=== PATIENT | female | born 1955 | race Caucasian/White ===

== ENCOUNTER 2024-05-27 08:56 | Outpatient (AMB) | payer MEDICARE, SELFPAY ==
[2024-05-27 08:58] VITALS: BP 146/80; PULSE 84; O2SAT 97; BMI 35.6
--- NOTE | 2024-05-27 08:58 | HO.NEPHOV_ITS ---
Vital Signs 05/27/24 08:58 Height 5 ft 7 in Weight 227 lb 6 oz BMI 35.6 BP 146/80 H Blood Pressure Location Lt brachial Position Sitting Pulse 84 Pulse Source Pulse Oximeter Pulse Oximetry (%) 97 Oxygen Delivery Method Room Air Intake Visit Reasons: CKD/ CON Refrigeration Service Inspector Required: No Allergies buprenorphine [From Butrans] Allergy (Verified 05/27/24 09:01) Unknown codeine Allergy (Verified 05/27/24 09:01) Nausea and Vomiting dicyclomine Allergy (Verified 05/27/24 09:01) Unknown loperamide Allergy (Verified 05/27/24 09:01) Unknown promethazine Allergy (Verified 05/27/24 09:01) Unknown Medication List - Last Reconciled 05/27/24 by Carlos Eduardo Anderson MD amlodipine 2.5 mg PO DAILY dextroamphetamine sulfate ER 30 mg PO DAILY gabapentin 600 mg PO BID insulin aspart U-100 (Novolog U-100 Insulin aspart) 10 units subcut DAILY insulin degludec (Tresiba FlexTouch U-100 insulin) 60 units subcut DAILY losartan 25 mg PO DAILY rosuvastatin 20 mg PO DAILY semaglutide (Ozempic) 2 mg subcut QWEEK tramadol 100 mg PO DAILY HPI Comments Details: Hemalatha is a pleasant 69-year-old woman with a history of longstanding hypertension diabetes mellitus referred for chronic kidney disease. 03/19/2024 serum creatinine was 1.39 with a EGFR of 41 mL/minute and hence this referral. She is a history of cerebral aneurysm underwent surgery in the past. She used to have severe migraine since childhood. After the surgery in 2002, she has had no further migraines. Prior to 2022 she was on high dose of Excederin and she was taking it regularly on a daily basis. She does not take any NSAIDs at present History of right adrenal adenoma she has been evaluated by endocrinology. She underwent 24 urine collection results are pending. [facility] Medical History (Updated 05/27/24 @ 09:29 by Carlos Eduardo Anderson MD) Pulmonary nodule Venous insufficiency of both lower extremities Chronic kidney disease, stage 3a Heart failure with preserved ejection fraction, NYHA class I Acute respiratory failure with hypoxia Pneumonia Sepsis Adenoma of right adrenal gland Coronary artery calcification COPD (chronic obstructive pulmonary disease) Spinal stenosis of lumbar region with neurogenic claudication Type 2 diabetes mellitus with hyperglycemia, with long-term current use of insulin Trochanteric bursitis of both hips DDD (degenerative disc disease), lumbosacral Osteochondromatosis, synovial Obstructive sleep apnea on CPAP Abdominal aortic atherosclerosis Nephrolithiasis Lumbosacral radiculopathy Essential (primary) hypertension Sleep apnea with hypersomnolence Hypersomnolence Surgical History (Updated 05/27/24 @ 09:06 by Machelle Raymond MA) History of back surgery H/O shoulder replacement H/O hand surgery History of hysterectomy H/O brain surgery H/O breast surgery Hx of appendectomy H/O cerebral aneurysm repair Family History (Updated 05/27/24 @ 09:07 by Machelle Raymond MA) Paternal Grandmother Diabetes Mother Cancer Sister Breast cancer Leukemia Social History (Updated 05/27/24 @ 09:07 by Machelle Raymond MA) Alcohol intake: never Patient Tobacco Use Status: Never used Tobacco Review of Systems Const Denies fever(s) and Denies weight loss Card Denies chest pain Resp Denies cough and Denies hemoptysis GI Denies abdominal pain, Denies diarrhea and Denies nausea Musc Denies back pain Neuro Denies focal weakness Physical Exam Vital Signs: Last Vital Signs Pulse 84 05/27/24 08:58 BP 146/80 H 05/27/24 08:58 Pulse Ox 97 05/27/24 08:58 Oxygen Delivery Method Room Air 05/27/24 08:58 BMI result Body Mass Index 35.6 Const General: comfortable; No acute distress Orientation/consciousness: patient oriented x3 Eyes General: appearance normal, both eyes and all related structures Visual Whitman: normal visual whitman by confrontation Neck Neck: Yes supple and Yes no JVD Resp Effort & Inspection: normal respiratory effort and respiratory effort not decreased Auscultation: rhonchi Cardio Palpation: no palpable S3 and no palpable S4 Heart sounds: no rubs GI Inspection: Yes normal to inspection Palpation (GI): Soft to palpation Percussion: Yes normal to percussion Auscultation: normal bowel sounds General: Yes no CVA tenderness Back/Spine/Pelvis Back: no CVA tenderness Skin General skin exam: no petechiae and no purpura Neuro General: patient oriented x3 and no focal motor deficits Extrem General: No clubbing and No edema Results Reviewed Results Reviewed: February 2024. Serum creatinine 1.39 Nephrology Results: No Data to Display Assessment & Plan Assessment & Plan (1) Chronic kidney disease, stage 3a: Code(s): N18.31 - Chronic kidney disease, stage 3a Category: Medical (2) HTN (hypertension): Code(s): I10 - Essential (primary) hypertension Category: Medical (3) Diabetes mellitus with chronic kidney disease: Code(s): E11.22 - Type 2 diabetes mellitus with diabetic chronic kidney disease Category: Medical (4) Adrenal mass, right: Code(s): E27.8 - Other specified disorders of adrenal gland Category: Medical (5) CINDY (obstructive sleep apnea): Code(s): G47.33 - Obstructive sleep apnea (adult) (pediatric) Category: Medical Plan CKD in a setting of longstanding hypertension diabetes mellitus. No evidence of obstructive uropathy based on recent imaging. Remote history of nephrolithiasis No reason to believe she is any active glomerular nephritis or interstitial disease at this time. She has been consuming excessive amounts of Excedrin several years ago. Analgesic nephropathy is a remote possibility ;however she had not taken any acetaminophen quite some time. She was on Aleve which she was discontinued. Recent serum creatinine was 1.39 with a EGFR of 41 mL/minute. Baseline need to be determined. She underwent a 24 urine collection few weeks ago I will track down the results. Goal is to slow the portion disease new line continue overt nephrotoxic agents. Continue with losartan for renal protection in view of microalbuminuria. She will benefit from SGLT2 inhibitors. Maintain blood pressure less than 130/80. Avoid nephrotoxic agents including NSAIDs. Right adrenal mass. She has been followed by endocrinology. Shall await results. Hypertension blood pressure acceptable no orthostatic changes. Encouraged her to stay on low-sodium diet. No changes were made to the medications. History of nephrolithiasis She should stay on low-sodium diet Increase fluid intake to maintain urine output of 2 L per 24 hours. Orders: Orders Total Protein Urine Random Today N18.31 - Chronic kidney disease, stage 3a UA and rflx microscopic Today N18.31 - Chronic kidney disease, stage 3a Comprehensive Met. Panel Today N18.31 - Chronic kidney disease, stage 3a Creatinine Urine Today N18.31 - Chronic kidney disease, stage 3a Coding Level of Care Code New Pt Level 4 (28692) Diagnoses Chronic kidney disease, stage 3a N18.31 HTN (hypertension) I10 Diabetes mellitus with chronic kidney disease E11.22 Adrenal mass, right E27.8 CINDY (obstructive sleep apnea) G47.33
== END 2024-05-27 09:30 | disposition home or self-care (01) ==
PROVIDERS: PCP Physician Assistant Medical; Visit Provider Internal Medicine Hypertension Specialist
DX: E11.22 Type 2 diabetes mellitus with diabetic chronic kidney disease (principal); N18.31 Chronic kidney disease, stage 3a; I10 Essential (primary) hypertension; E27.8 Other specified disorders of adrenal gland; G47.33 Obstructive sleep apnea (adult) (pediatric)
CPT/HCPCS: 99204

== ENCOUNTER → 2024-05-27 08:56 | Outpatient (BNVA) | payer MEDICARE, SELFPAY | PROVIDERS: PCP Physician Assistant Medical; Visit Provider Internal Medicine Hypertension Specialist | DX: E11.22 Type 2 diabetes mellitus with diabetic chronic kidney disease (principal); I12.9 Hypertensive chronic kidney disease with stage 1 through stage 4 chronic kidney disease, or unspecified chronic kidney disease; N18.31 Chronic kidney disease, stage 3a; E27.8 Other specified disorders of adrenal gland; G47.33 Obstructive sleep apnea (adult) (pediatric) | CPT/HCPCS: 99202 ==

== ENCOUNTER 2024-06-10 14:32 | Outpatient (AMB) | payer MEDICARE, SELFPAY ==
--- NOTE | 2024-06-10 14:31 | HO.NEPHOV_ITS ---
Vital Signs 06/10/24 14:32 Height 5 ft 7 in Weight 228 lb BMI 35.7 BP 118/62 Blood Pressure Location Lt brachial Position Sitting Pulse 86 Pulse Source Pulse Oximeter Pulse Oximetry (%) 96 Oxygen Delivery Method Room Air Intake Visit Reasons: 2-4 wks follow up/ Conf Skating Carhop Required: No Accompanied by: Self / Same As Patient Allergies buprenorphine [From Butrans] Allergy (Verified 06/10/24 14:35) Unknown codeine Allergy (Verified 06/10/24 14:35) Nausea and Vomiting dicyclomine Allergy (Verified 06/10/24 14:35) Unknown loperamide Allergy (Verified 06/10/24 14:35) Unknown promethazine Allergy (Verified 06/10/24 14:35) Unknown Medication List - Last Reconciled 06/10/24 by Carlos Eduardo Anderson MD amlodipine 2.5 mg PO DAILY dextroamphetamine sulfate ER 30 mg PO DAILY gabapentin 600 mg PO BID insulin aspart U-100 (Novolog U-100 Insulin aspart) 10 units subcut DAILY insulin degludec (Tresiba FlexTouch U-100 insulin) 60 units subcut DAILY losartan 25 mg PO DAILY rosuvastatin 20 mg PO DAILY semaglutide (Ozempic) 2 mg subcut QWEEK tramadol 100 mg PO DAILY HPI Comments Details: Hemalatha is a pleasant 69-year-old woman with a history of longstanding hypertension diabetes mellitus referred for chronic kidney disease. 03/19/2024 serum creatinine was 1.39 with a EGFR of 41 mL/minute and hence this referral. She is a history of cerebral aneurysm underwent surgery in the past. She used to have severe migraine since childhood. After the surgery in 2002, she has had no further migraines. Prior to 2022 she was on high dose of Excederin and she was taking it regularly on a daily basis. She does not take any NSAIDs at present History of right adrenal adenoma she has been evaluated by endocrinology. She underwent 24 urine collection 06/10/24 Seen by Endo- Ruthie Henry c/o Edema [facility] Medical History (Updated 05/27/24 @ 09:29 by Carlos Eduardo Anderson MD) Pulmonary nodule Venous insufficiency of both lower extremities Chronic kidney disease, stage 3a Heart failure with preserved ejection fraction, NYHA class I Acute respiratory failure with hypoxia Pneumonia Sepsis Adenoma of right adrenal gland Coronary artery calcification COPD (chronic obstructive pulmonary disease) Spinal stenosis of lumbar region with neurogenic claudication Type 2 diabetes mellitus with hyperglycemia, with long-term current use of insulin Trochanteric bursitis of both hips DDD (degenerative disc disease), lumbosacral Osteochondromatosis, synovial Obstructive sleep apnea on CPAP Abdominal aortic atherosclerosis Nephrolithiasis Lumbosacral radiculopathy Essential (primary) hypertension Sleep apnea with hypersomnolence Hypersomnolence Surgical History History of back surgery H/O shoulder replacement H/O hand surgery History of hysterectomy H/O brain surgery H/O breast surgery Hx of appendectomy H/O cerebral aneurysm repair Family History Paternal Grandmother Diabetes Mother Cancer Sister Breast cancer Leukemia Social History Alcohol intake: never Patient Tobacco Use Status: Never used Tobacco Physical Exam Vital Signs: Last Vital Signs Pulse 86 06/10/24 14:32 BP 118/62 06/10/24 14:32 Pulse Ox 96 06/10/24 14:32 Oxygen Delivery Method Room Air 06/10/24 14:32 BMI result Body Mass Index 35.7 Const General: comfortable; No acute distress Orientation/consciousness: patient oriented x3 Eyes General: appearance normal, both eyes and all related structures Visual Whitman: normal visual whitman by confrontation Neck Neck: Yes supple and Yes no JVD Resp Effort & Inspection: normal respiratory effort and respiratory effort not decreased Auscultation: rhonchi Cardio Palpation: no palpable S3 and no palpable S4 Heart sounds: no rubs GI Inspection: Yes normal to inspection Palpation (GI): Soft to palpation Percussion: Yes normal to percussion Auscultation: normal bowel sounds General: Yes no CVA tenderness Back/Spine/Pelvis Back: no CVA tenderness Skin General skin exam: no petechiae and no purpura Neuro General: patient oriented x3 and no focal motor deficits Extrem General: No clubbing and Yes edema (1 to2 +) Results Reviewed Results Reviewed: Cr 1.26 in May 2024 Nephrology Results: No Data to Display Assessment & Plan Assessment & Plan (1) Chronic kidney disease, stage 3a: Code(s): N18.31 - Chronic kidney disease, stage 3a Category: Medical (2) HTN (hypertension): Code(s): I10 - Essential (primary) hypertension Category: Medical (3) Diabetes mellitus with chronic kidney disease: Code(s): E11.22 - Type 2 diabetes mellitus with diabetic chronic kidney disease Category: Medical (4) Adrenal mass, right: Code(s): E27.8 - Other specified disorders of adrenal gland Category: Medical (5) CNIDY (obstructive sleep apnea): Code(s): G47.33 - Obstructive sleep apnea (adult) (pediatric) Category: Medical Plan CKD in a setting of longstanding hypertension diabetes mellitus. No evidence of obstructive uropathy based on recent imaging. Remote history of nephrolithiasis No reason to believe she is any active glomerular nephritis or interstitial disease at this time. She has been consuming excessive amounts of Excedrin several years ago. Analgesic nephropathy is a remote possibility ;however she had not taken any acetaminophen quite some time. She was on Aleve which she was discontinued. Recent serum creatinine was 1.39 with a EGFR of 41 mL/minute. Baseline need to be determined. Goal is to slow the portion disease new line continue overt nephrotoxic agents. Continue with losartan for renal protection in view of microalbuminuria. She will benefit from SGLT2 inhibitors. Maintain blood pressure less than 130/80. Avoid nephrotoxic agents including NSAIDs. Right adrenal mass. She has been followed by endocrinology. Hypertension blood pressure acceptable no orthostatic changes. Encouraged her to stay on low-sodium diet. No changes were made to the medications. History of nephrolithiasis She should stay on low-sodium diet Increase fluid intake to maintain urine output of 2 L per 24 hours. Edema- Can DC Amlodipine and Try Lasix 20 mg QD - will defer to PCP Orders: Orders Creatinine Urine 6 Months E11.22 - Type 2 diabetes mellitus with diabetic chronic kidney disease, N18.31 - Chronic kidney disease, stage 3a Total Protein Urine Random 6 Months E11.22 - Type 2 diabetes mellitus with diabetic chronic kidney disease, N18.31 - Chronic kidney disease, stage 3a UA and rflx microscopic 6 Months E11.22 - Type 2 diabetes mellitus with diabetic chronic kidney disease, N18.31 - Chronic kidney disease, stage 3a Basic Metabolic Panel 6 Months E11.22 - Type 2 diabetes mellitus with diabetic chronic kidney disease, N18.31 - Chronic kidney disease, stage 3a Coding Level of Care Code Est Pt Level 4 (38716) Diagnoses Chronic kidney disease, stage 3a N18.31 HTN (hypertension) I10 Diabetes mellitus with chronic kidney disease E11.22 Adrenal mass, right E27.8 CINDY (obstructive sleep apnea) G47.33
[2024-06-10 14:32] VITALS: BP 118/62; PULSE 86; O2SAT 96; BMI 35.7
== END 2024-06-10 14:56 | disposition home or self-care (01) ==
PROVIDERS: PCP Physician Assistant Medical; Visit Provider Internal Medicine Hypertension Specialist
DX: E11.22 Type 2 diabetes mellitus with diabetic chronic kidney disease (principal); N18.31 Chronic kidney disease, stage 3a; I10 Essential (primary) hypertension; E27.8 Other specified disorders of adrenal gland; G47.33 Obstructive sleep apnea (adult) (pediatric)
CPT/HCPCS: 99214

== ENCOUNTER → 2024-06-10 14:32 | Outpatient (BNVA) | payer MEDICARE, SELFPAY | PROVIDERS: PCP Physician Assistant Medical; Visit Provider Internal Medicine Hypertension Specialist | DX: E11.22 Type 2 diabetes mellitus with diabetic chronic kidney disease (principal); I12.9 Hypertensive chronic kidney disease with stage 1 through stage 4 chronic kidney disease, or unspecified chronic kidney disease; N18.31 Chronic kidney disease, stage 3a; G47.33 Obstructive sleep apnea (adult) (pediatric); E27.8 Other specified disorders of adrenal gland | CPT/HCPCS: 99212 ==

== ENCOUNTER 2024-12-23 15:29 | Outpatient (AMB) | payer MEDICARE, SELFPAY ==
[2024-12-23 15:28] VITALS: BP 138/76; PULSE 94; O2SAT 98; BMI 34.5
--- NOTE | 2024-12-23 15:28 | HO.NEPHOV ---
Vital Signs 12/23/24 15:28 Height 5 ft 7 in Weight 220 lb BMI 34.5 BP 138/76 Blood Pressure Location Rt brachial Position Sitting Pulse 94 Pulse Source Pulse Oximeter Pulse Oximetry (%) 98 Oxygen Delivery Method Room Air Intake Visit Reasons: 6MON F/U/ Conf Chief Technical Officer Required: No Accompanied by: Self / Same As Patient Allergies buprenorphine [From Butrans] Allergy (Verified 12/23/24 15:31) Unknown codeine Allergy (Verified 12/23/24 15:31) Nausea and Vomiting dicyclomine Allergy (Verified 12/23/24 15:31) Unknown loperamide Allergy (Verified 12/23/24 15:31) Unknown promethazine Allergy (Verified 12/23/24 15:31) Unknown Medication List - Last Reconciled 12/23/24 by Carlos Eduardo Anderson MD amlodipine 2.5 mg PO DAILY dextroamphetamine sulfate ER 30 mg PO DAILY gabapentin 600 mg PO BID insulin aspart U-100 (Novolog U-100 Insulin aspart) 10 units subcut DAILY insulin degludec (Tresiba FlexTouch U-100 insulin) 60 units subcut DAILY losartan 25 mg PO DAILY rosuvastatin 20 mg PO DAILY tirzepatide (Mounjaro) 2.5 mg subcut QWEEK tramadol 100 mg PO DAILY HPI Comments Details: Hemalatha is a pleasant 69-year-old woman with a history of longstanding hypertension diabetes mellitus referred for chronic kidney disease. 03/19/2024 serum creatinine was 1.39 with a EGFR of 41 mL/minute and hence this referral. She is a history of cerebral aneurysm underwent surgery in the past. She used to have severe migraine since childhood. After the surgery in 2002, she has had no further migraines. Prior to 2022 she was on high dose of Excederin and she was taking it regularly on a daily basis. She does not take any NSAIDs at present History of right adrenal adenoma she has been evaluated by endocrinology. She underwent 24 urine collection 06/10/24 Seen by Endo- Possible Elaine c/o Edema 12/23/24 On Maunjaro instead of Ozempic Recurrent UTI treated with Bactrim Recent cr 1.39 Has pressure like symptoms with urination [facility] Medical History (Updated 05/27/24 @ 09:29 by Carlos Eduardo Anderson MD) Pulmonary nodule Venous insufficiency of both lower extremities Chronic kidney disease, stage 3a Heart failure with preserved ejection fraction, NYHA class I Acute respiratory failure with hypoxia Pneumonia Sepsis Adenoma of right adrenal gland Coronary artery calcification COPD (chronic obstructive pulmonary disease) Spinal stenosis of lumbar region with neurogenic claudication Type 2 diabetes mellitus with hyperglycemia, with long-term current use of insulin Trochanteric bursitis of both hips DDD (degenerative disc disease), lumbosacral Osteochondromatosis, synovial Obstructive sleep apnea on CPAP Abdominal aortic atherosclerosis Nephrolithiasis Lumbosacral radiculopathy Essential (primary) hypertension Sleep apnea with hypersomnolence Hypersomnolence Surgical History History of back surgery H/O shoulder replacement H/O hand surgery History of hysterectomy H/O brain surgery H/O breast surgery Hx of appendectomy H/O cerebral aneurysm repair Family History Paternal Grandmother Diabetes Mother Cancer Sister Breast cancer Leukemia Social History Alcohol intake: never Patient Tobacco Use Status: Never used Tobacco Physical Exam Vital Signs: Last Vital Signs Pulse 94 12/23/24 15:28 BP 138/76 12/23/24 15:28 Pulse Ox 98 12/23/24 15:28 Oxygen Delivery Method Room Air 12/23/24 15:28 BMI result Body Mass Index 34.5 Comfortable Neck supple no JVD. Lungs entry equal no rales. Heart S1-S2 heard no gallop or rub. Abdomen soft nontender. Neuro alert awake oriented. No asterixis. Extremities no edema. Const General: comfortable; No acute distress Orientation/consciousness: patient oriented x3 Eyes General: appearance normal, both eyes and all related structures Visual Whitman: normal visual whitman by confrontation Neck Neck: Yes supple and Yes no JVD Resp Effort & Inspection: normal respiratory effort and respiratory effort not decreased Cardio Palpation: no palpable S3 and no palpable S4 Heart sounds: no rubs GI Inspection: Yes normal to inspection Palpation (GI): Soft to palpation Percussion: Yes normal to percussion Auscultation: normal bowel sounds General: Yes no CVA tenderness Back/Spine/Pelvis Back: no CVA tenderness Skin General skin exam: no petechiae and no purpura Neuro General: patient oriented x3 and no focal motor deficits Extrem General: No clubbing and Yes edema (1 to2 +) Results Reviewed Nephrology Results: No Data to Display Assessment & Plan Assessment & Plan (1) Chronic kidney disease, stage 3a: Code(s): N18.31 - Chronic kidney disease, stage 3a Category: Medical (2) HTN (hypertension): Code(s): I10 - Essential (primary) hypertension Category: Medical (3) Diabetes mellitus with chronic kidney disease: Code(s): E11.22 - Type 2 diabetes mellitus with diabetic chronic kidney disease Category: Medical (4) Adrenal mass, right: Code(s): E27.8 - Other specified disorders of adrenal gland Category: Medical (5) CINDY (obstructive sleep apnea): Code(s): G47.33 - Obstructive sleep apnea (adult) (pediatric) Category: Medical Plan CKD in a setting of longstanding hypertension diabetes mellitus. No evidence of obstructive uropathy based on recent imaging. Remote history of nephrolithiasis No reason to believe she is any active glomerular nephritis or interstitial disease at this time. She has been consuming excessive amounts of Excedrin several years ago. Analgesic nephropathy is a remote possibility ;however she had not taken any acetaminophen quite some time. She was on Aleve which she was discontinued. Recent serum creatinine was 1.39 with a EGFR of 41 mL/minute. Baseline need to be determined. Goal is to slow the portion disease new line continue to avoid nephrotoxic agents. Continue with losartan for renal protection in view of microalbuminuria. She will benefit from SGLT2 inhibitors. Maintain blood pressure less than 130/80. Avoid nephrotoxic agents including NSAIDs. Right adrenal mass. She has been followed by endocrinology. Hypertension : blood pressure acceptable no orthostatic changes. Encouraged her to stay on low-sodium diet. No changes were made to the medications. History of nephrolithiasis She should stay on low-sodium diet Increase fluid intake to maintain urine output of 2 L per 24 hours. Recurrent UTI check urine c/s renal ultrasound Orders: Orders Basic Metabolic Panel 2 Weeks N18.31 - Chronic kidney disease, stage 3a US renal BI 2 Weeks I10 - Essential (primary) hypertension, N18.31 - Chronic kidney disease, stage 3a Urine Culture 2 Weeks N18.31 - Chronic kidney disease, stage 3a Coding Level of Care Code Est Pt Level 4 (51321) Diagnoses Chronic kidney disease, stage 3a N18.31 HTN (hypertension) I10 Diabetes mellitus with chronic kidney disease E11.22 Adrenal mass, right E27.8 CINDY (obstructive sleep apnea) G47.33
== END 2024-12-23 16:00 | disposition home or self-care (01) ==
LOC: HO.HKAE 15:30
PROVIDERS: PCP Physician Assistant Medical; Visit Provider Internal Medicine Hypertension Specialist
DX: E11.22 Type 2 diabetes mellitus with diabetic chronic kidney disease (principal); N18.31 Chronic kidney disease, stage 3a; I10 Essential (primary) hypertension; E27.8 Other specified disorders of adrenal gland; G47.33 Obstructive sleep apnea (adult) (pediatric)
CPT/HCPCS: 99214

== ENCOUNTER → 2024-12-23 15:29 | Outpatient (BNVA) | payer MEDICARE, SELFPAY | PROVIDERS: PCP Physician Assistant Medical; Visit Provider Internal Medicine Hypertension Specialist | DX: E11.22 Type 2 diabetes mellitus with diabetic chronic kidney disease (principal); I12.9 Hypertensive chronic kidney disease with stage 1 through stage 4 chronic kidney disease, or unspecified chronic kidney disease; N18.31 Chronic kidney disease, stage 3a; E27.8 Other specified disorders of adrenal gland; G47.33 Obstructive sleep apnea (adult) (pediatric) | CPT/HCPCS: 99212 ==

== ENCOUNTER 2025-03-10 14:18 | Outpatient (AMB) | payer MEDICARE, SELFPAY ==
--- NOTE | 2025-03-10 14:24 | HO.NEPHOV_ITS ---
Vital Signs 03/10/25 14:32 Height 5 ft 7 in Weight 231 lb BMI 36.2 BP 146/80 H Blood Pressure Location Rt brachial Position Sitting Pulse 89 Pulse Source Pulse Oximeter Pulse Oximetry (%) 94 Oxygen Delivery Method Room Air Intake Visit Reasons: 3mon follow-up w/labs + US LVM Freight Car Loader Required: No Accompanied by: Self / Same As Patient Allergies buprenorphine [From Butrans] Allergy (Verified 03/10/25 14:34) Unknown codeine Allergy (Verified 03/10/25 14:34) Nausea and Vomiting dicyclomine Allergy (Verified 03/10/25 14:34) Unknown loperamide Allergy (Verified 03/10/25 14:34) Unknown promethazine Allergy (Verified 03/10/25 14:34) Unknown Medication List - Last Reconciled 03/10/25 by Carlos Eduardo Anderson MD amlodipine 2.5 mg PO DAILY dextroamphetamine sulfate ER 30 mg PO DAILY epinephrine mL IM PRN dtkitsmhopu-kyfeaosda-dffdrnzd 200-62.5-25 mcg (Trelegy Ellipta) 1 ea inhalation DAILY gabapentin 600 mg PO BID insulin aspart U-100 (Novolog U-100 Insulin aspart) 10 units subcut DAILY insulin degludec (Tresiba FlexTouch U-100 insulin) 60 units subcut DAILY losartan 25 mg PO DAILY rosuvastatin 20 mg PO DAILY tirzepatide (Mounjaro) mg subcut tramadol 100 mg PO DAILY HPI Comments Details: Hemalatha is a pleasant 69-year-old woman with a history of longstanding hypertension diabetes mellitus referred for chronic kidney disease. 03/19/2024 serum creatinine was 1.39 with a EGFR of 41 mL/minute and hence this referral. She is a history of cerebral aneurysm underwent surgery in the past. She used to have severe migraine since childhood. After the surgery in 2002, she has had no further migraines. Prior to 2022 she was on high dose of Excederin and she was taking it regularly on a daily basis. She does not take any NSAIDs at present History of right adrenal adenoma she has been evaluated by endocrinology. She underwent 24 urine collection 06/10/24 Seen by Endo- Ruthie Henry ;c/o Edema 12/23/24 ;On Maunjaro instead of Ozempic Recurrent UTI treated with Bactrim Recent cr 1.39 Has pressure like symptoms with urination 03/10/25 69-year-old female presenting with chronic kidney disease management. Her renal function has remained stable at 40% for the past year. This reduced function is attributed to a history of Type 2 Diabetes Mellitus, present for approximately 10 to 15 years. The patient's kidney issues have been longstanding, with early indications of dysfunction noted by her previous primary care physician. Additionally, the patient experiences abdominal pressure due to constipation and excessive gas, for which she has been prescribed Linzess but has not yet initiated treatment. In the past, high doses of Excedrin for migraine treatment had previously impacted her renal health. Her migraines resolved following surgical intervention for two brain aneurysms in 2002. Recent imaging showed a very small benign cyst on her right kidney, and a minor kidney stone was detected, with no associated obstruction or symptoms. She is also known to have adrenal gland abnormalities. [facility] Medical History (Updated 05/27/24 @ 09:29 by Carlos Eduardo Anderson MD) Pulmonary nodule Venous insufficiency of both lower extremities Chronic kidney disease, stage 3a Heart failure with preserved ejection fraction, NYHA class I Acute respiratory failure with hypoxia Pneumonia Sepsis Adenoma of right adrenal gland Coronary artery calcification COPD (chronic obstructive pulmonary disease) Spinal stenosis of lumbar region with neurogenic claudication Type 2 diabetes mellitus with hyperglycemia, with long-term current use of insulin Trochanteric bursitis of both hips DDD (degenerative disc disease), lumbosacral Osteochondromatosis, synovial Obstructive sleep apnea on CPAP Abdominal aortic atherosclerosis Nephrolithiasis Lumbosacral radiculopathy Essential (primary) hypertension Sleep apnea with hypersomnolence Hypersomnolence Surgical History History of back surgery H/O shoulder replacement H/O hand surgery History of hysterectomy H/O brain surgery H/O breast surgery Hx of appendectomy H/O cerebral aneurysm repair Family History Paternal Grandmother Diabetes Mother Cancer Sister Breast cancer Leukemia Social History Alcohol intake: never Patient Tobacco Use Status: Never used Tobacco Physical Exam Vital Signs: Last Vital Signs Pulse 89 03/10/25 14:32 BP 146/80 H 03/10/25 14:32 Pulse Ox 94 03/10/25 14:32 Oxygen Delivery Method Room Air 03/10/25 14:32 BMI result Body Mass Index 36.2 Comfortable Neck supple no JVD. Lungs entry equal no rales. Heart S1-S2 heard no gallop or rub. Abdomen soft nontender. Neuro alert awake oriented. No asterixis. Extremities no edema. Results Reviewed Results Reviewed: Cr 1.26 in May 2024 Renla USG December 2024- Unremarkable November 2024: Cr 1.37 Nephrology Results: No Data to Display Assessment & Plan Assessment & Plan (1) Chronic kidney disease, stage 3a: Code(s): N18.31 - Chronic kidney disease, stage 3a Category: Medical (2) HTN (hypertension): Code(s): I10 - Essential (primary) hypertension Category: Medical (3) Diabetes mellitus with chronic kidney disease: Code(s): E11.22 - Type 2 diabetes mellitus with diabetic chronic kidney disease Category: Medical (4) Adrenal mass, right: Code(s): E27.8 - Other specified disorders of adrenal gland Category: Medical (5) CINDY (obstructive sleep apnea): Code(s): G47.33 - Obstructive sleep apnea (adult) (pediatric) Category: Medical Plan CKD in a setting of longstanding hypertension diabetes mellitus. No evidence of obstructive uropathy based on recent imaging. Remote history of nephrolithiasis No reason to believe she is any active glomerular nephritis or interstitial disease at this time. She has been consuming excessive amounts of Excedrin several years ago. Analgesic nephropathy is a remote possibility ;however she had not taken any acetaminophen quite some time. She was on Aleve which she was discontinued. Recent serum creatinine was 1.39 with a EGFR of 41 mL/minute. Baseline need to be determined. Goal is to slow the portion disease new line continue to avoid nephrotoxic agents. Continue with losartan for renal protection in view of microalbuminuria. She will benefit from SGLT2 inhibitors. She could not take Farxiga developed yeast infection- Therefore she stopepd it Maintain blood pressure less than 130/80. Avoid nephrotoxic agents including NSAIDs. Right adrenal mass. She has been followed by endocrinology. Hypertension : blood pressure acceptable ; no orthostatic changes. Encouraged her to stay on low-sodium diet. No changes were made to the medications. History of nephrolithiasis She should stay on low-sodium diet Increase fluid intake to maintain urine output of 2 L per 24 hours. Orders: Orders Basic Metabolic Panel 6 Months N18.31 - Chronic kidney disease, stage 3a Basic Metabolic Panel 1 Week N18.31 - Chronic kidney disease, stage 3a Coding Level of Care Code Est Pt Level 4 (39379) Diagnoses Chronic kidney disease, stage 3a N18.31 HTN (hypertension) I10 Diabetes mellitus with chronic kidney disease E11.22 Adrenal mass, right E27.8 CINDY (obstructive sleep apnea) G47.33
[2025-03-10 14:32] VITALS: BP 146/80; PULSE 89; O2SAT 94; BMI 36.2
--- OUTSIDE RECORDS SUMMARY | 2025-03-10 16:24 | XMS_ITS | Clinical Summary ---
Author Organization [facility] Address [address] [place] [address] Care Team Providers Care Siebel Architect Name Role Phone Katie Turner PA-C Primary Care Provider Allergies Active Allergy Reactions Criticality Noted Date Comments Bee Sting Anaphylaxis High 11/03/2017 Honey Bees Buprenorphine 05/01/2023 Skin irritation Codeine Nausea And Vomiting Low 05/18/2015 Dicyclomine 12/03/2023 Hornet Venom Anaphylaxis High 07/31/2022 Loperamide 12/03/2023 Promethazine 12/03/2023 Wasp Venom Protein Anaphylaxis High 07/31/2022 Medications Medication Sig Dispensed Refills Start Date End Date Status Blood Glucose Monitoring Suppl (ACCU-CHEK KATLYN PLUS) w/Device KIT USE DIRECTED THREE TIMES PER DAY 1 kit 0 01/15/2020 Active glucose blood (Accu-Chek Katlyn Plus) test strip USE DIRECTED THREE TIMES PER DAY 300 each 1 06/02/2021 Active glucose blood (OneTouch Verio) test strip Patient test glucose TID DX E11.9 100 each 12 03/26/2023 Active amLODIPine (NORVASC) tablet 2.5 mg TAKE 1 TABLET BY MOUTH EVERY DAY 90 tablet 3 08/20/2023 Active losartan (COZAAR) tablet 25 mg TAKE 1 TABLET (25 MG TOTAL) BY MOUTH DAILY. 90 tablet 3 09/08/2023 Active rosuvastatin (CRESTOR) tablet 20 mg Take 1 tablet (20 mg total) by mouth daily. To prevent heart attack and stroke 90 tablet 3 10/29/2023 Active OneTouch Delica Lancets 33G [facility] Patient test glucose TID DX E11.9 100 each 2 11/06/2023 Active insulin aspart (NovoLOG) injection 100 units/mL Inject 10 Units under the skin once. 0 Active BD Pen Needle Steffanie 2nd Gen 32G X 4 MM MISC INJECT 1 EACH UNDER THE SKIN 4 (FOUR) TIMES A DAY. WITH OZEMPIC 200 each 4 04/07/2024 Active Tresiba FlexTouch 200 UNIT/ML SOPN INJECT 60 UNITS UNDER THE SKIN DAILY 18 mL 1 04/07/2024 Active dextroamphetamine (DEXTROSTAT) 10 MG tablet Take 1 tablet (10 mg total) by mouth 3 (three) times a day. 270 tablet 0 04/13/2024 Active semaglutide, 2 MG/DOSE, (Ozempic, 2 MG/DOSE,) 8 MG/3ML SOPN injection Inject 0.75 mL (2 mg total) under the skin every 7 days. 3 mL 5 04/13/2024 Active traMADol (ULTRAM) 50 MG tablet TAKE 1-2 TABS BY MOUTH EVERY 6-8 HOURS NEEDED FOR PAIN. MAXIMUM 6 PILLS IN 24 HOURS 90 tablet 1 05/31/2024 Active Continuous Glucose Sensor (FreeStyle Minerva 3 Sensor) MISC Apply 1 patch topically every 14 (fourteen) days. 6 each 3 06/19/2024 Active Continuous Glucose Automation Operator (FreeStyle Minerva 3 Eagle) DESIRAE 1 Device by Does not apply route continuous. 1 each 0 06/19/2024 Active gabapentin (NEURONTIN) 300 MG capsule Take 2 capsules (600 mg total) by mouth 3 (three) times a day. 1620 capsule 1 06/19/2024 Active Active Problems Problem Noted Date Diagnosed Date BMD: 06/22/21 06/28/2021 Overview: Normal No significant change c/t 2019 exam Venous insufficiency of both lower extremities 0 05/04/2021 Pulmonary nodule 05/04/2021 Stage 3a chronic kidney disease 08/10/2020 Type 2 diabetes mellitus wit h microalbuminuria, with long-term current use of insulin 10/27/2019 Heart failure with preserved ejection fraction, NYHA class I 05/19/2019 Adenoma of right adrenal gland on CTA 01/01/2019 0 03/03/2019 Former smoker 02/10/2019 Extensive coronary artery ca lcification seen on CTA chest HH 01/01/2019 02/10/2019 Trochanteric bursitis of right hip 12/29/2018 Sepsis 12/201812/29/2018 Pneumonia 12/201812/29/2018 Acute respiratory failure with hypoxia 12/2018 COPD (chronic obstructive pulmonary disease) Type 2 diabetes mellitus wit h hyperglycemia, with long-term current use of insulin 10/15/2018 Spinal stenosis of lumbar re gion with neurogenic claudication 10/15/2018 Osteochondromatosis, synovial (right shoulder) 1 10/20/2017 DDD (degenerative disc disease), lumbosacral Trochanteric bursitis of both hips 08/20/2018 Abdominal aortic atherosclerosis on CT 06/2017 0 06/17/2018 Obstructive sleep apnea on CPAP 06/17/2018 Bilateral mild chronic lumbo sacral radiculopathy on EMG/NCV 12/30/2016 03/23/2018 Nephrolithiasis 03/23/2018 Essential hypertension 11/08/2015 Abnormal EKG 11/08/2015 H/O cerebral aneurysm repair 11/08/2015 Sleep apnea with hypersomnolence 07/13/2015 Hypersomnolence 05/18/2015 Overview: Hypersomnolence s/p craniotomy 2002 for 2 cerebral aneurysms. Post-op neurosurgery/neurology consultation was negative. Patient treated unsuccessfully with medication for narcolepsy and was still falling asleep at work, while driving, etc. Pharmacist finally recommended dextroamphetamine 10 qid; patient started in 2003 and was finally able to work and drive without falling asleep. She was able to reduce dose to 10 mg tid in 2015. Subsequent attempts to reduce dose further have resulted in severe recurrent hypersomnolence. Patient is adequately treated for OSAS. Resolved Problems Problem Noted Date Diagnosed Date Resolved Date Positive colorectal cancer s creening using Cologuard test 02/14/2022 09/03/2023 De Quervain's syndrome (tenosynovitis) 05/25/2019 09/03/2023 Right knee pain 12/29/2018 03/27/2019 Influenza A 12/22/2018 02/10/2019 Type 2 diabetes mellitus with hyperglycemia 08/20/2018 07/02/2021 Status post replacement of l eft shoulder joint 07/17/2018 03/27/2019 Status post replacement of r ight shoulder joint 07/17/2018 03/27/2019 Migraine 03/23/2018 06/17/2018 Urinary frequency 07/14/2017 05/04/2021 Overview: Normal renal/bladder US (PVR 1.7%) NCI 07/05/2017 Smoker 11/08/2015 02/10/2019 Dyspnea 11/08/2015 03/27/2019 Class 2 severe obesity due t o excess calories with serious comorbidity and body mass index (BMI) of 36.0 to 36.9 in adult 11/08/2015 4 Immunizations Name Administration Dates Next Due Covid-19 (Moderna 12+) 100mcg/0.5mL dosage 01/02,12/05/2020 Covid-19 (Moderna Booster 18+) 0.25mL dosage Influenza Quad (Fluad) 0.5 mL >65Yrs (AIIV4) 03/2023 Influenza Quad (Fluarix/Fluz one/FluLaval) 0.5mL (SD-IIV4) 06/17/2018 Influenza Quad (Flucelvax) 0.5mL >6mon (ccIIV4) 06/13/2019 Influenza Quad (High Dose Fl uzone) 0.7mL >65Yrs (HD-IIV4) 07/28/2022,07/11/2021 Influenza Vaccine, Unspecified formulation 07/13 Pneumococcal Conjugate PCV20 09/08/2023 Pneumococcal Polysaccharide PPSV23 01/16/2019 Shingrix Vaccine (Zoster Recombinant) 09/08/2023 ,09/15/2021 Family History Medical History Relation Name Comments Arthritis Mother Brain cancer Mother Heart attack Mother GI problems Nephew FAP Anuerysm Sister Breast cancer Sister Cancer Sister Leukemia Migraines Sister Relation Name Status Comments Father Mother Nephew Sister Social History Tobacco Use Types Packs/Day Years Used Date Smoking Tobacco: Former Cigarettes 1 Q uit: 12/18/2018 Smokeless Tobacco: Never Tobacco Cessation:Counseling Given: Not Answered Comments:Quit 2018 Alcohol Use Standard Drinks/Week Comments No 0 (1 standard drink = 0.6 oz pur e alcohol) Sex and Gender Information Value Date Recorded Sex Assigned at Female 12/22/2018 5:40 PM EDT Gender Identity Female 08/01/2022 8:56 AM EDT Sexual Orientation Not on file Job Start Date Occupation Industry Not on file Not on file Not on file Last Filed Vital Signs Vital Sign Reading Time Taken Comments Blood Pressure 137/77 06/17/2024 10:14 AM EDT Pulse 88 06/17/2024 10:14 AM EDT Temperature 36.8 ??C (98.2 ??F) 06/17/2024 10:14 AM E DT Respiratory Rate 15 08/01/2022 11:30 AM EDT Oxygen Saturation 97% 06/17/2024 10:14 AM EDT Inhaled Oxygen Concentration - - Weight 103 kg (227 lb) 06/17/2024 10:14 AM EDT Height 170.2 cm (5' 7 ) 12/03/2023 9:29 AM EST Body Mass Index 35.55 12/03/2023 9:29 AM EST Plan of Treatment Health Maintenance Due Date Last Done Comments RSV Adult > 60+ Yrs or (1 - Risk 60-74 years 1-dose series) 2015 Breast Cancer Screening (Mammogram) 06/22/2023 06/22/2021 Diabetes: Eye Exam (No Retinopathy) 06/26/2023 06/26/2021, 02/02/2021 Diabetes: Foot Exam 05/01/2024 05/01/2023, 06/22/2021, 03/27/2019 COVID-19 Vaccine ( season) 2024 09/15/2021, 01/02/2021, 12/05/2020 BMI Counseling 08/15/2024 08/15/2023, 04/30, 12/20/2021, Additional history exists Depression Screening 12/02/2024 12/03/2023, 10/23/2022, 07/17/2022, Additional history exists Fall Risk Assessment 12/02/2024 12/03/2023, 10/23/2022, 07/17/2022, Additional history exists Preventative Health Evaluation 12/02/2024 12/03/2023, 09/03/2023, 10/23/2022, Additional history exists Diabetes: Microalbumin Test 03/10/202502/28, 06/10/2023, 07/17/2022, Additional history exists Hemoglobin A1C Due 05/02/2025 11/02/2024, 0 06/10/2024, 03/03/2024, Additional history exists Influenza Vaccine (Season Ended) 2025 06/06/2023, 07/28/2022, 07/11/2021, Additional history exists Osteoporosis Screening (DEXA Scan) 01/02/2026 01/03/2024 DTap / Tdap / Td (2 - Td or Tdap) 06/17/2028 06/17/2018 (Declined) Colon Cancer Screening (Colonoscopy) 08/01/2032 08/01/2022, 06/30/2018 Hepatitis C Screening Completed 06/17/2018 Pneumococcal Vaccine Completed 09/08/2023, 01/17/20 19 Shingrix-Zoster Vaccine Completed 09/08/2023, 09/15 Hepatitis B Vaccines Aged Out No long er eligible based on patient's age to complete this topic RSV Ped < 20 months Aged Out No longe r eligible based on patient's age to complete this topic Goals Goal Patient Goal Type Associated Problems Recent Progress Patient-Stated? Author Diabetes: Exercise 4 X Per Week (30 Minutes Per Time) Wellness Coaching No change(2019 3:24 PM EDT) No Ingrid Swanson, RN Note: Not Met Diabetes: Check Feet Daily Wellness Coaching On track( 020 3:24 PM EDT) No Ingrid Swanson, RN Note: Also schedule a follow-up appointment with Dr. An. - PCP [place] [address] Hemalatha Cuellos Personal/Family Self 1955 [address] [place] [address], [place] [address] Hemalatha Cuellos Personal/Family Self [address] [place] [address], [place] [address] Hemalatha Cuellos Personal/Family Self [address] [place] [address], [place] [address] Hemalatha Cuellos Personal/Family Self [address] [place] [address], [place] [address] Hemalatha Cuellos Personal/Family Self [address] [place] [address], [place] [address] Hemalatha Cuellos Personal/Family Self [address] [place] [address], [place] [address] Hemalatha Cuellos Personal/Family Self [address] [place] [address], [place] [address] Hemalatha Cuellos Personal/Family Self [address] [place] [address], [place] [address] Cleo Cuellos Rothman Personal/Family Self [address] [place] [address], [place] [address] Advance Directives For more information, please contact: [phone] Documents on File Type Date Recorded Patient On Line Csr Expl anation Power of Ice Cream Machine Operator 05/11/2015 4:28 PM Latest Code Status on File Code Status Date Activated Date Inactivated Comments Full Code 12/22/2018 8:36 PM 12/24/2018 6:32 PM This code status was ascertained in the following way: Patient . Care Teams Siebel Architect Relationship Specialty Start Date End Date Katie Turner PA-C PCP - General Physician Implementation Specialist Payroll 05/11/15
== END 2025-03-10 15:00 | disposition home or self-care (01) ==
LOC: HO.HKAE 14:18
PROVIDERS: PCP Physician Assistant Medical; Visit Provider Internal Medicine Hypertension Specialist
DX: E11.22 Type 2 diabetes mellitus with diabetic chronic kidney disease (principal); N18.31 Chronic kidney disease, stage 3a; I10 Essential (primary) hypertension; E27.8 Other specified disorders of adrenal gland; G47.33 Obstructive sleep apnea (adult) (pediatric)
CPT/HCPCS: 99214

== ENCOUNTER → 2025-03-10 14:18 | Outpatient (BNVA) | payer MEDICARE, SELFPAY | PROVIDERS: PCP Physician Assistant Medical; Visit Provider Internal Medicine Hypertension Specialist | DX: E11.65 Type 2 diabetes mellitus with hyperglycemia (principal); E11.22 Type 2 diabetes mellitus with diabetic chronic kidney disease; I12.9 Hypertensive chronic kidney disease with stage 1 through stage 4 chronic kidney disease, or unspecified chronic kidney disease; N18.31 Chronic kidney disease, stage 3a; E27.8 Other specified disorders of adrenal gland; G47.33 Obstructive sleep apnea (adult) (pediatric); Z79.4 Long term (current) use of insulin | CPT/HCPCS: 99212 ==

== ENCOUNTER 2025-09-08 14:07 | Outpatient (AMB) | payer MEDICARE, SELFPAY ==
[2025-09-08 14:08] VITALS: BP 150/86; PULSE 88; O2SAT 98; BMI 36.6
--- NOTE | 2025-09-08 14:08 | HO.NEPHOV_ITS ---
Vital Signs 09/08/25 14:08 09/08/25 14:20 Height 5 ft 7 in Weight 234 lb BMI 36.6 BP 150/86 H 132/70 Blood Pressure Location Lt brachial Lt brachial Position Sitting Sitting Pulse 88 Pulse Source Pulse Oximeter Pulse Oximetry (%) 98 Oxygen Delivery Method Room Air Intake Visit Reasons: Adrenal mass Lace Machine Operator Required: No Accompanied by: Self / Same As Patient Allergies buprenorphine (From Butrans) Allergy (Verified 09/08/25 14:10) Unknown codeine Allergy (Verified 09/08/25 14:10) Nausea and Vomiting dicyclomine Allergy (Verified 09/08/25 14:10) Unknown loperamide Allergy (Verified 09/08/25 14:10) Unknown promethazine Allergy (Verified 09/08/25 14:10) Unknown Medication List - Last Reconciled 09/08/25 by Carlos Eduardo Anderson MD amlodipine 2.5 mg PO DAILY dextroamphetamine sulfate ER 30 mg PO DAILY epinephrine mL IM PRN evolocumab (Repatha SureClick) 140 mg subcut Q2W yqlxzlcmjuh-qpxnyckkh-golkuoue 200-62.5-25 mcg (Trelegy Ellipta) 1 ea inhalation DAILY gabapentin 600 mg PO BID insulin aspart U-100 (Novolog U-100 Insulin aspart) 10 units subcut DAILY insulin degludec (Tresiba FlexTouch U-100 insulin) 60 units subcut DAILY levothyroxine 25 mcg PO DAILY losartan 25 mg PO DAILY tirzepatide (Mounjaro) 10 mg subcut QWEEK tramadol 100 mg PO DAILY PRN HPI Comments Details: History of Present Illness The patient is a 70 year old female presenting for a nephrology follow-up. History of longstanding hypertension diabetes mellitus referred for chronic kidney disease. 03/19/2024 serum creatinine was 1.39 with a EGFR of 41 mL/minute and hence this referral. She is a history of cerebral aneurysm underwent surgery in the past. She used to have severe migraine since childhood. After the surgery in 2002, she has had no further migraines. Prior to 2022 she was on high dose of Excederin and she was taking it regularly on a daily basis. She does not take any NSAIDs at present History of right adrenal adenoma she has been followed by endocrinology. Her last creatinine in April was 1.4 mg/dL with an eGFR of 40 mL/min, and recent labs show an improvement with a creatinine of 1.24 mg/dL. The patient reports significant spinal issues, with bulging discs and bone spurs at every level of her spine, for which she has seen a system support specialist. This condition causes severe walking limitations, with her legs feeling like concrete after a certain distance, though she can ambulate better when bent over a grocery cart. Due to her limited mobility, she has been unable to lose weight despite being on Mounjaro. Her medical history is also significant for hypertension treated with losartan. For hyperlipidemia, she stopped rosuvastatin due to cramps and now takes Repatha injections every two weeks as prescribed by her [employer] consultant. She has a history of ruptured brain aneurysms, which affects her short-term memory. She has bilateral titanium shoulder implants and is scheduled for an MRI. She is also followed by endocrinology for adrenal monitoring and has a follow-up appointment on Saturday. She recently had a dental screw placed in her jaw for a cracked molar, resulting in facial swelling. Results - Labs (current): Creatinine is 1.24 mg/dL. - Labs (April 2021): Creatinine was 1.4 mg/dL, eGFR was 40 mL/min. [facility] Medical History (Updated 05/27/24 @ 09:29 by Carlos Eduardo Anderson MD) Pulmonary nodule Venous insufficiency of both lower extremities Chronic kidney disease, stage 3a Heart failure with preserved ejection fraction, NYHA class I Acute respiratory failure with hypoxia Pneumonia Sepsis Adenoma of right adrenal gland Coronary artery calcification COPD (chronic obstructive pulmonary disease) Spinal stenosis of lumbar region with neurogenic claudication Type 2 diabetes mellitus with hyperglycemia, with long-term current use of insulin Trochanteric bursitis of both hips DDD (degenerative disc disease), lumbosacral Osteochondromatosis, synovial Obstructive sleep apnea on CPAP Abdominal aortic atherosclerosis Nephrolithiasis Lumbosacral radiculopathy Essential (primary) hypertension Sleep apnea with hypersomnolence Hypersomnolence Surgical History History of back surgery H/O shoulder replacement H/O hand surgery History of hysterectomy H/O brain surgery H/O breast surgery Hx of appendectomy H/O cerebral aneurysm repair Family History Paternal Grandmother Diabetes Mother Cancer Sister Breast cancer Leukemia Social History Alcohol intake: never Patient Tobacco Use Status: Never used Tobacco Physical Exam Exam Exam: Physical Exam General: Awake. Comfortable. HENT: Neck supple. Mucosa moist. Face swollen due to recent jaw surgery. Pulmonary: Lungs aeration equal. No rales. Cardiology: Heart S1-S2 heard. No gallop. Blood pressure high at 150. Abdomen: Soft. Non tender. Bowel sounds normal. Neurologic: No involuntary movements. No myoclonus. History of ruptured brain aneurysms affecting short-term memory. Extremities: No edema. No rash. Hands cold. Bruising noted on the arm, likely from blood draw. Vital Signs: Last Vital Signs Pulse 88 09/08/25 14:08 BP 132/70 09/08/25 14:20 Pulse Ox 98 09/08/25 14:08 Oxygen Delivery Method Room Air 09/08/25 14:08 BMI result Body Mass Index 36.6 Results Reviewed Results Reviewed: 09/07/25 BUN /Cr 23/1.24 K 4.0 Assessment & Plan Assessment & Plan (1) Chronic kidney disease, stage 3a: Code(s): N18.31 - Chronic kidney disease, stage 3a Category: Medical (2) HTN (hypertension): Code(s): I10 - Essential (primary) hypertension Category: Medical (3) Diabetes mellitus with chronic kidney disease: Code(s): E11.22 - Type 2 diabetes mellitus with diabetic chronic kidney disease Category: Medical (4) Adrenal mass, right: Code(s): E27.8 - Other specified disorders of adrenal gland Category: Medical (5) CINDY (obstructive sleep apnea): Code(s): G47.33 - Obstructive sleep apnea (adult) (pediatric) Category: Medical Plan Plan 1. Chronic Kidney Disease Due to hypertensive diabetic kidney disease - The patient's creatinine has improved from 1.4 mg/dL to 1.24 mg/dL. - Kidney function is noted to be stable and improved. - Plan to follow up in 6 months. - 2. Hypertension - The patient's initial blood pressure was elevated at 150/x mmHg, which she attributed to pain and swelling from a recent dental procedure. - A repeat blood pressure measurement was significantly lower. - The patient will continue her losartan. - No changes to the antihypertensive regimen were made at this visit. 3. Spinal Stenosis - The patient's significant ambulatory dysfunction secondary to spinal stenosis with bulging discs and bone spurs was noted. - Management will be deferred to her system support specialist, whom she has already seen. 4. Hyperlipidemia - The patient is taking Repatha every two weeks after discontinuing rosuvastatin due to side effects. - Management of her hyperlipidemia is deferred to her [employer] consultant. 5. History of nephrolithiasis She should stay on low-sodium diet Increase fluid intake to maintain urine output of 2 L per 24 hours. 6.Right adrenal mass. She has been followed by endocrinology. Orders: Orders Complete Blood Count no Diff 6 Months E11.22 - Type 2 diabetes mellitus with diabetic chronic kidney disease, E27.8 - Other specified disorders of adrenal gland Basic Metabolic Panel 6 Months E11.22 - Type 2 diabetes mellitus with diabetic chronic kidney disease, E27.8 - Other specified disorders of adrenal gland Coding Level of Care Code Est Pt Level 4 (82687) Diagnoses Chronic kidney disease, stage 3a N18.31 HTN (hypertension) I10 Diabetes mellitus with chronic kidney disease E11.22 Adrenal mass, right E27.8 CINDY (obstructive sleep apnea) G47.33
[2025-09-08 14:20] VITALS: BP 132/70
--- OUTSIDE RECORDS SUMMARY | 2025-09-08 22:01 | XMS_ITS | Encounter Summary ---
Author Organization [facility] Address [address] [place] [address] Care Team Providers Care Finishing Room Supervisor Name Role Phone Katie Turner Primary Care Provider [phone] Harley Ly MD Unavailable [phone] Encounter Details Date Type Department Care Team ([facility] Contact Info) Description 03/04/2025 Scanned Document [facility] Pul[facility] [place] [address] [place] [phone] María Armendariz MD [address] [facility] [address] [place] [address] Social History Tobacco Use Types Packs/Day Years Used Date Smoking Tobacco: Some Days Cigarettes 1 50 Smokeless Tobacco: Never Comments:last smoked 2 weeks ago, wants to quit Alcohol Use Standard Drinks/Week Comments No 0 (1 standard drink = 0.6 oz pur e alcohol) Comments Unknown Sex and Gender Information Value Date Recorded Sex Assigned at Female 03/01/2025 11:46 AM EDT Legal Sex Female 4:34 PM EDT Gender Identity Female 03/01/2025 11:46 AM EDT Sexual Orientation Heterosexual (straight) 03/01 11:46 AM EDT Sexual Orientation Pansexual 03/01/2025 11 :46 AM EDT documented as of this encounter Plan of Treatment Upcoming Encounters Date Type Department Care Team (Late Contact Info) Description 09/20/2025 9:30 AM EST Appointment [facility] V[facility] [address] [phone] Harley Ly MD [address] [place] [address] documented as of this encounter Goals Goal Patient Goal Type Associated Problems Recent Progress Patient-Stated? Author Cut out extra servings Diet No Evelyn Cruz MA PT LTG 1 Physical Therapy No Isabel Calderon PT Note: In 10 weeks the patient will be independent with HEP. PT LTG 2 Physical Therapy No Iasbel Calderon PT Note: In 10 weeks the patient will be able to ambulate >/= 1000 feet indoors and outdoors without reports of pain or the need to rest in order to improve overall mobility and quality of life. PT LTG 3 Physical Therapy No Isabel Calderon PT Note: In 10 weeks the patient will be able to safely navigate her stairs while carrying objects up/down without pain so that she is able to safely do her laundry at home and remain independent. documented as of this encounter Visit Diagnoses Not on filedocumented in this encounter Care Teams Finishing Room Supervisor Relationship Specialty Start Date End Date Katie Turner PA PCP - General 04/03/16 Harley Ly MD [address] [place] [address] Primary Configuration Consultant Cardiovascular Disease 07/27/25 documented as of this encounter
--- OUTSIDE RECORDS SUMMARY | 2025-09-08 22:01 | XMS_ITS | Encounter Summary ---
Author Organization [facility] Address [address] [place] [address] Care Team Providers Care Head Esthetician Name Role Phone Katie Turner Primary Care Provider [phone] Harley Ly MD Unavailable [phone] Encounter Details Date Type Department Care Team (Late Contact Info) Description 09/12/2023 Scanned Document [facility] Pulmonary [place] [address] [place] [phone] Pulmonary, Scan Social History Tobacco Use Types Packs/Day Years [...] Description 09/20/2025 9:30 AM EST Appointment [facility] [place] [address] [place] [phone] Harley Ly MD [address] [place] [address] [phone] documented as of this encounter Goals Goal Patient Goal Type Associated Problems Recent Progress Patient-Stated? Author Cut out extra servings Diet No Evelyn Cruz MA PT LTG 1 Physical Therapy No Isabel Calderon PT Note: In 10 weeks the patient will be independent with HEP. PT LTG 2 Physical Therapy No Isabel Calderon PT Note: [...] on filedocumented in this encounter Care Teams Head Esthetician Relationship Specialty Start Date End Date Katie Turner PA PCP - General 04/03/16 Harley Ly MD [address] [place] [address] [place] [address] Primary Deli Bakery Clerk Cardiovascular Disease 07/27/25 documented as of this encounter
--- OUTSIDE RECORDS SUMMARY | 2025-09-08 22:01 | XMS_ITS ---
Author Name [facility] Organization Unknown Results Test Name/Text Value Interpretation Date Range Source Albumin/Creat Ur 181.0 mg/g creat Above high normal 08/19/20 25 - 30 [facility] Creat Ur-mCnc 47.0 mg/dL Normal 08/19/2025 20 - 275 [facility] Microalbumin Ur-mCnc 8.5 mg/dL Normal 08/19/2025 - [facility] HbA1c MFr Bld 6.8 % Above high normal 08/11/2025 - 5.7 [facility] Est. average glucose Bld gHb Est-mCnc 148.0 mg/dL 08/11/2025 [facility] Est. average glucose Bld gHb Est-sCnc 8.2 mmol/L 08/11/2025 [facility] NonHDLc SerPl-mCnc 65.0 mg/dL (calc) Normal 08/11/2025 - 130 [facility] Cholest/HDLc SerPl 2.4 (calc) Normal 08/11/2025 - 5 [facility] HDLc SerPl-mCnc 46.0 mg/dL Below low normal 08/11/2025 - [facility] LDLc SerPl Calc-mCnc 41.0 mg/dL (calc) Normal 08/11/2025 [facility] Cholest SerPl-mCnc 111.0 mg/dL Normal 08/11/2025 - 200 [facility] Trigl SerPl-mCnc 154.0 mg/dL Above high normal 08/11/2025 - 150 [facility] Chloride SerPl-sCnc 104.0 mmol/L Normal 08/11/2025 98 - 1 10 [facility] eGFRcr SerPlBld CKD-EPI 2020 54.0 mL/min/1.73m2 Below low normal 08/11/2025 - [facility] ALT SerPl-cCnc 21.0 U/L Normal 08/11/2025 6 - 29 [facility] Creat SerPl-mCnc 1.1 mg/dL Above high normal 08/11/2025 0.6 - 1 [facility] CO2 SerPl-sCnc 30.0 mmol/L Normal 08/11/2025 20 - 32 [facility] Potassium SerPl-sCnc 4.3 mmol/L Normal 08/11/2025 3.5 - 5 .3 [facility] BUN SerPl-mCnc 18.0 mg/dL Normal 08/11/2025 7 - [address] Calcium SerPl-mCnc 9.2 mg/dL Normal 08/11/2025 8.6 - 10.4 [facility] ALP SerPl-cCnc 80.0 U/L Normal 08/11/2025 37 - 153 [facility] Prot SerPl-mCnc 5.8 g/dL Below low normal 08/11/2025 6.1 - 8.1 [facility] Albumin SerPl-mCnc 3.8 g/dL Normal 08/11/2025 3.6 - 5.1 [facility] Bilirub SerPl-mCnc 0.3 mg/dL Normal 08/11/2025 0.2 - 1.2 [facility] Sodium SerPl-sCnc 140.0 mmol/L Normal 08/11/2025 135 - 14 6 [facility] Glucose SerPl-mCnc 133.0 mg/dL Above high normal 08/11/2025 65 - 99 [facility] AST SerPl-cCnc 22.0 U/L Normal 08/11/2025 10 - 35 [facility] Albumin/Glob SerPl 1.9 (calc) Normal 08/11/2025 1 - 2.5 [facility] BUN/Creat SerPl 16.0 (calc) Normal 08/11/2025 6 - 22 Q [facility] Globulin Ser Calc-mCnc 2.0 g/dL (calc) Normal 08/11/2025 1.9 - 3.7 [facility] 25(OH)D3+25(OH)D2 SerPl-mCnc 42.0 ng/mL Normal 06/21/2025 30 - 100 [facility] CK SerPl-cCnc 207.0 U/L Normal 06/21/2025 18 - 225 [facility] Magnesium SerPl-mCnc 2.0 mg/dL Normal 06/21/2025 1.5 - 2. 5 [facility] Monocytes # Bld Auto 717.0 cells/uL Normal 06/21/2025 200 - 950 [facility] Hct VFr Bld Auto 43.0 % Normal 06/21/2025 35 - 45 [facility] Eosinophil NFr Bld Auto 2.5 % Normal 06/21/2025 [facility] Hgb Bld-mCnc 14.1 g/dL Normal 06/21/2025 11.7 - 15.5 [facility] Neutrophils # Bld Auto 4516.0 cells/uL Normal 06/21/2025 1500 - 7800 [facility] WBC # Bld Auto 6.7 Thousand/uL Normal 06/21/2025 3.8 - 10 .8 [facility] RBC # Bld Auto 4.75 Million/uL Normal 06/21/2025 3.8 - 5. 1 [facility] MCHC RBC Auto-EntMCnc 32.8 g/dL Normal 06/21/2025 32 - 36 [facility] PMV Bld Murali-Fredy 9.1 fL Normal 06/21/2025 7.5 - 12.5 [facility] Lymphocytes NFr Bld Auto 18.7 % Normal 06/21/2025 [facility] Monocytes NFr Bld Auto 10.7 % Normal 06/21/2025 [facility] Basophils NFr Bld Auto 0.7 % Normal 06/21/2025 [facility] Erythrocyte DistWidth Bld Auto 12.9 % Normal 06/21/2025 11 - 15 [facility] Basophils # Bld Auto 47.0 cells/uL Normal 06/21/2025 0 - 200 [facility] Platelet # Bld Auto 282.0 Thousand/uL Normal 06/21/2025 1 40 - 400 [facility] Eosinophil # Bld Auto 168.0 cells/uL Normal 06/21/2025 15 - 500 [facility] Neutrophils NFr Bld Auto 67.4 % Normal 06/21/2025 [facility] MCV RBC Auto 90.5 fL Normal 06/21/2025 80 - 100 [facility] Lymphocytes # Bld Auto 1253.0 cells/uL Normal 06/21/2025 850 - 3900 [facility] MCH RBC Qn Auto 29.7 pg Normal 06/21/2025 27 - [address] [facility] Chloride SerPl-sCnc 105.0 mmol/L Normal 06/21/2025 98 - 1 10 [facility] Potassium SerPl-sCnc 4.5 mmol/L Normal 06/21/2025 3.5 - 5 .3 [facility] Calcium SerPl-mCnc 9.6 mg/dL Normal 06/21/2025 8.6 - 10.4 [facility] Creat SerPl-mCnc 1.26 mg/dL Above high normal 06/21/2025 0.6 - 1 [facility] Sodium SerPl-sCnc 142.0 mmol/L Normal 06/21/2025 135 - 14 6 [facility] ALP SerPl-cCnc 87.0 U/L Normal 06/21/2025 37 - 153 [facility] BUN/Creat SerPl 16.0 (calc) Normal 06/21/2025 6 - 22 [facility] ALT SerPl-cCnc 26.0 U/L Normal 06/21/2025 6 - 29 [facility] AST SerPl-cCnc 24.0 U/L Normal 06/21/2025 10 - 35 [facility] BUN SerPl-mCnc 20.0 mg/dL Normal 06/21/2025 7 - [address] [facility] Globulin Ser Calc-mCnc 2.1 g/dL (calc) Normal 06/21/2025 1.9 - 3.7 [facility] eGFRcr SerPlBld CKD-EPI 2020 46.0 mL/min/1.73m2 Below low normal 06/21/2025 - [facility] CO2 SerPl-sCnc 29.0 mmol/L Normal 06/21/2025 20 - 32 [facility] Albumin SerPl-mCnc 3.9 g/dL Normal 06/21/2025 3.6 - 5.1 [facility] Bilirub SerPl-mCnc 0.3 mg/dL Normal 06/21/2025 0.2 - 1.2 [facility] Glucose SerPl-mCnc 93.0 mg/dL Normal 06/21/2025 65 - 139 [facility] Prot SerPl-mCnc 6.0 g/dL Below low normal 06/21/2025 6.1 - 8.1 [facility] Albumin/Glob SerPl 1.9 (calc) Normal 06/21/2025 1 - 2.5 [facility] Ca-I SerPl-mCnc 5.3 mg/dL Normal 06/21/2025 4.7 - 5.[address] [facility] Calcium SerPl-mCnc 9.6 mg/dL Normal 06/21/2025 8.6 - 10.4 [facility] PTH-Intact SerPl-mCnc 65.0 pg/mL Normal 06/21/2025 16 - 77 [facility] Albumin/Creat Ur 51.0 mg/g creat Above high normal 5 - 30 [facility] Creat Ur-mCnc 99.0 mg/dL Normal 05/20/2025 20 - 275 [facility] Microalbumin Ur-mCnc 5.0 mg/dL Normal 05/20/2025 - [facility] Trigl SerPl-mCnc 118.0 mg/dL Normal 05/13/2025 - 150 [facility] LDLc SerPl Calc-mCnc 31.0 mg/dL (calc) Normal 05/13/2025 [facility] Cholest SerPl-mCnc 90.0 mg/dL Normal 05/13/2025 - 200 [facility] NonHDLc SerPl-mCnc 51.0 mg/dL (calc) Normal 05/13/2025 - 130 [facility] HDLc SerPl-mCnc 39.0 mg/dL Below low normal 05/13/2025 - [facility] Cholest/HDLc SerPl 2.3 (calc) Normal 05/13/2025 - 5 [facility] BUN SerPl-mCnc 21.0 mg/dL Normal 05/13/2025 7 - [address] [facility] Chloride SerPl-sCnc 104.0 mmol/L Normal 05/13/2025 98 - 1 10 [facility] Potassium SerPl-sCnc 4.5 mmol/L Normal 05/13/2025 3.5 - 5 .3 [facility] Albumin/Glob SerPl 1.8 (calc) Normal 05/13/2025 1 - 2.5 [facility] Sodium SerPl-sCnc 140.0 mmol/L Normal 05/13/2025 135 - 14 6 [facility] Glucose SerPl-mCnc 147.0 mg/dL Above high normal 05/13/2025 65 - 99 [facility] Calcium SerPl-mCnc 9.1 mg/dL Normal 05/13/2025 8.6 - 10.4 [facility] AST SerPl-cCnc 24.0 U/L Normal 05/13/2025 10 - 35 [facility] Albumin SerPl-mCnc 3.9 g/dL Normal 05/13/2025 3.6 - 5.1 [facility] Prot SerPl-mCnc 6.1 g/dL Normal 05/13/2025 6.1 - 8.[address] CO2 SerPl-sCnc 28.0 mmol/L Normal 05/13/2025 20 - 32 [facility] Globulin Ser Calc-mCnc 2.2 g/dL (calc) Normal 05/13/2025 1.9 - 3.7 [facility] ALT SerPl-cCnc 29.0 U/L Normal 05/13/2025 6 - 29 [facility] Bilirub SerPl-mCnc 0.4 mg/dL Normal 05/13/2025 0.2 - 1.2 [facility] ALP SerPl-cCnc 70.0 U/L Normal 05/13/2025 37 - 153 [facility] BUN/Creat SerPl 15.0 (calc) Normal 05/13/2025 6 - 22 [facility] Creat SerPl-mCnc 1.4 mg/dL Above high normal 05/13/2025 0.6 - 1 [facility] eGFRcr SerPlBld CKD-EPI 2020 40.0 mL/min/1.73m2 Below low normal 05/13/2025 - [facility] TSH SerPl-aCnc 2.32 mIU/L Normal 05/13/2025 0.4 - 4.[address] [facility] HbA1c MFr Bld 7.1 % Above high normal 05/13/2025 - 5.7 [facility] Est. average glucose Bld gHb Est-sCnc 8.7 mmol/L 05/13/2025 [facility] Est. average glucose Bld gHb Est-mCnc 157.0 mg/dL 05/13/2025 [facility] Calcium SerPl-mCnc 9.0 mg/dL Normal 02/04/2025 8.6 - 10.4 [facility] Albumin SerPl-mCnc 3.8 g/dL Normal 02/04/2025 3.6 - 5.1 [facility] Potassium SerPl-sCnc 4.3 mmol/L Normal 02/04/2025 3.5 - 5 .3 [facility] Chloride SerPl-sCnc 105.0 mmol/L Normal 02/04/2025 98 - 1 10 [facility] ALT SerPl-cCnc 31.0 U/L Above high normal 02/04/2025 6 - 29 [facility] Sodium SerPl-sCnc 142.0 mmol/L Normal 02/04/2025 135 - 14 6 [facility] AST SerPl-cCnc 30.0 U/L Normal 02/04/2025 10 - 35 [facility] Glucose SerPl-mCnc 108.0 mg/dL Above high normal 02/04/2025 65 - 99 [facility] Albumin/Glob SerPl 1.8 (calc) Normal 02/04/2025 1 - 2.5 [facility] BUN SerPl-mCnc 21.0 mg/dL Normal 02/04/2025 7 - [address] CO2 SerPl-sCnc 29.0 mmol/L Normal 02/04/2025 20 - 32 [facility] Creat SerPl-mCnc 1.33 mg/dL Above high normal 02/04/2025 0.5 - 1.05 [facility] eGFRcr SerPlBld CKD-EPI 2020 43.0 mL/min/1.73m2 Below low normal 02/04/2025 - [facility] BUN/Creat SerPl 16.0 (calc) Normal 02/04/2025 6 - 22 [facility] Bilirub SerPl-mCnc 0.5 mg/dL Normal 02/04/2025 0.2 - 1.2 [facility] ALP SerPl-cCnc 66.0 U/L Normal 02/04/2025 37 - 153 [facility] Globulin Ser Calc-mCnc 2.1 g/dL (calc) Normal 02/04/2025 1.9 - 3.7 [facility] Prot SerPl-mCnc 5.9 g/dL Below low normal 02/04/2025 6.1 - 8.1 [facility] HbA1c MFr Bld 7.2 % Above high normal 02/04/2025 - 5.7 [facility] Est. average glucose Bld gHb Est-mCnc 179.0 mg/dL (calc) 02/04/2025 [facility] LDLc SerPl Calc-mCnc 34.0 mg/dL (calc) Normal 02/04/2025 [facility] Cholest/HDLc SerPl 2.4 (calc) Normal 02/04/2025 - 5 [facility] Cholest SerPl-mCnc 90.0 mg/dL Normal 02/04/2025 - 200 [facility] NonHDLc SerPl-mCnc 52.0 mg/dL (calc) Normal 02/04/2025 - 130 [facility] Trigl SerPl-mCnc 97.0 mg/dL Normal 02/04/2025 - 150 [facility] HDLc SerPl-mCnc 38.0 mg/dL Below low normal 02/04/2025 - [facility] Bacteria Ur Cult SEE NOTE Abnormal 12/02/2024 [facility] [place] LC Free/Lambda Free Ser 1.32 Normal 11/04/2024 0.26 - 1.65 [facility] [place] LC Free Ser-mCnc 20.7 mg/L Above high normal 11/04/2024 3.3 - 19.4 [facility] Lambda LC Free SerPl-mCnc 15.7 mg/L Normal 11/04/2024 5.7 - 26.3 [facility] Alpha2 Glob SerPl Elph-mCnc 0.9 g/dL Normal 11/04/2024 0.5 - 0.9 [facility] Prot Pattern SerPl Elph-Imp Normal 11/04/2024 [facility] Beta1 Glob SerPl Elph-mCnc 0.4 g/dL Normal 11/04/2024 0.4 - 0.6 [facility] Prot SerPl-mCnc 6.1 g/dL Normal 11/04/2024 6.1 - 8.[address] [facility] Gamma glob SerPl Elph-mCnc 0.7 g/dL Below low normal 11/04/2024 0.8 - 1.7 [facility] Alpha1 Glob SerPl Elph-mCnc 0.2 g/dL Normal 11/04/2024 0.2 - 0.3 [facility] Albumin SerPl Elph-mCnc 3.5 g/dL Below low normal 11/04/2024 3.8 - 4.8 [facility] Beta2 Glob SerPl Elph-mCnc 0.4 g/dL Normal 11/04/2024 0.2 - 0.5 [facility] ALP SerPl-cCnc 70.0 U/L Normal 11/04/2024 37 - 153 [facility] eGFRcr SerPlBld CKD-EPI 2020 47.0 mL/min/1.73m2 Below low normal 11/04/2024 - [facility] Calcium SerPl-mCnc 9.3 mg/dL Normal 11/04/2024 8.6 - 10.4 [facility] Chloride SerPl-sCnc 101.0 mmol/L Normal 11/04/2024 98 - 1 10 [facility] BUN SerPl-mCnc 19.0 mg/dL Normal 11/04/2024 7 - [address] [facility] Sodium SerPl-sCnc 138.0 mmol/L Normal 11/04/2024 135 - 14 6 [facility] Potassium SerPl-sCnc 4.1 mmol/L Normal 11/04/2024 3.5 - 5 .3 [facility] Glucose SerPl-mCnc 205.0 mg/dL Above high normal 11/04/2024 65 - 99 [facility] BUN/Creat SerPl 15.0 (calc) Normal 11/04/2024 6 - 22 [facility] Albumin SerPl-mCnc 3.9 g/dL Normal 11/04/2024 3.6 - 5.1 [facility] CO2 SerPl-sCnc 31.0 mmol/L Normal 11/04/2024 20 - 32 [facility] Prot SerPl-mCnc 6.1 g/dL Normal 11/04/2024 6.1 - 8.[address] [facility] Albumin/Glob SerPl 1.8 (calc) Normal 11/04/2024 1 - 2.5 [facility] ALT SerPl-cCnc 25.0 U/L Normal 11/04/2024 6 - 29 [facility] Creat SerPl-mCnc 1.24 mg/dL Above high normal 11/04/2024 0.5 - 1.05 [facility] Bilirub SerPl-mCnc 0.4 mg/dL Normal 11/04/2024 0.2 - 1.2 [facility] AST SerPl-cCnc 21.0 U/L Normal 11/04/2024 10 - 35 [facility] Globulin Ser Calc-mCnc 2.2 g/dL (calc) Normal 11/04/2024 1.9 - 3.7 [facility] Est. average glucose Bld gHb Est-mCnc 257.0 mg/dL (calc) Normal 11/04/2024 [facility] HbA1c MFr Bld 9.4 % of total Hgb Above high normal 5 - 5.7 [facility] GROSS DESCRIPTION Received in formalin is an irregularly shaped fragment of skin measuring 0.6 x 0.3 x 0.1 cm. The specimen is bisected and submitted entirely in one cassette. (Gross Description performed by [facility], [place], [place]) Normal 07/03/2024 [facility] DIAGNOSIS COMMENT Received from [facility], [address] [place] [address], [address], [place] [address] are one slide and one block labeled [id number] , which are retained for our files. Normal 07/03/2024 [facility] CLINICAL INFORMATION SH vs BCC Normal 07/03/2024 [facility] [place] LC Free/Lambda Free Ser 1.66 Above high normal 06/15/2024 0.26 - 1.65 [facility] Lambda LC Free SerPl-mCnc 13.9 mg/L Normal 06/15/2024 5.7 - 26.3 [facility] [place] LC Free Ser-mCnc 23.1 mg/L Above high normal 06/15/2024 3.3 - 19.4 [facility] HbA1c MFr Bld 8.4 % of total Hgb Above high normal 4 - 5.7 [facility] Est. average glucose Bld gHb Est-mCnc 222.0 mg/dL (calc) Normal 06/15/2024 [facility] Eosinophil/leuk NFr Bld Auto 3.2 % Normal 06/15/2024 [facility] PMV Bld Murali-Fredy 9.1 fL Normal 06/15/2024 7.5 - 12.5 [facility] WBC # Bld Auto 6.8 Thousand/uL Normal 06/15/2024 3.8 - 10 .8 [facility] Monocytes/leuk NFr Bld Auto 9.7 % Normal 06/15/2024 [facility] MCHC RBC Auto-mCnc 33.2 g/dL Normal 06/15/2024 32 - 36 [facility] Platelet # Bld Auto 243.0 Thousand/uL Normal 06/15/2024 1 40 - 400 [facility] Neutrophils/leuk NFr Bld Auto 61.5 % Normal 06/15/2024 [facility] Basophils/leuk NFr Bld Auto 0.6 % Normal 06/15/2024 [facility] Lymphocytes # Bld Auto 1700.0 cells/uL Normal 06/15/2024 850 - 3900 [facility] MCV RBC Auto 90.8 fL Normal 06/15/2024 80 - 100 [facility] Neutrophils # Bld Auto 4182.0 cells/uL Normal 06/15/2024 1500 - 7800 [facility] Lymphocytes/leuk NFr Bld Auto 25.0 % Normal 06/15/2024 [facility] Hct VFr Bld Auto 42.5 % Normal 06/15/2024 35 - 45 [facility] Basophils # Bld Auto 41.0 cells/uL Normal 06/15/2024 0 - 200 [facility] RDW RBC Auto-Rto 12.6 % Normal 06/15/2024 11 - 15 [facility] Eosinophil # Bld Auto 218.0 cells/uL Normal 06/15/2024 15 - 500 [facility] MCH RBC Qn Auto 30.1 pg Normal 06/15/2024 27 - [address] [facility] Monocytes # Bld Auto 660.0 cells/uL Normal 06/15/2024 200 - 950 [facility] Hgb Bld-mCnc 14.1 g/dL Normal 06/15/2024 11.7 - 15.5 [facility] RBC # Bld Auto 4.68 Million/uL Normal 06/15/2024 3.8 - 5. 1 [facility] [place] LC Free Ser-mCnc 23.1 mg/L Above high normal 06/15/2024 3.3 - 19.4 [facility] IgA SerPl-mCnc 187.0 mg/dL Normal 06/15/2024 70 - 320 [facility] IgG SerPl-mCnc 653.0 mg/dL Normal 06/15/2024 600 - 1540 [facility] IgM SerPl-mCnc 72.0 mg/dL Normal 06/15/2024 50 - [address] Interpretation SerPl VICENTE-Imp Normal 06/15/2024 [facility] Trigl SerPl-mCnc 145.0 mg/dL Normal 06/15/2024 - 150 [facility] Cholest/HDLc SerPl 2.5 (calc) Normal 06/15/2024 - 5 [facility] HDLc SerPl-mCnc 38.0 mg/dL Below low normal 06/15/2024 - [facility] Cholest SerPl-mCnc 95.0 mg/dL Normal 06/15/2024 - 200 [facility] NonHDLc SerPl-mCnc 57.0 mg/dL (calc) Normal 06/15/2024 - 130 [facility] LDLc SerPl Calc-mCnc 34.0 mg/dL (calc) Normal 06/15/2024 [facility] Creat SerPl-mCnc 1.18 mg/dL Above high normal 06/15/2024 0.5 - 1.05 [facility] Albumin/Glob SerPl 1.6 (calc) Normal 06/15/2024 1 - 2.5 [facility] Bilirub SerPl-mCnc 0.4 mg/dL Normal 06/15/2024 0.2 - 1.2 [facility] Globulin Ser Calc-mCnc 2.2 g/dL (calc) Normal 06/15/2024 1.9 - 3.7 [facility] Chloride SerPl-sCnc 105.0 mmol/L Normal 06/15/2024 98 - 1 10 [facility] ALT SerPl-cCnc 27.0 U/L Normal 06/15/2024 6 - 29 [facility] Sodium SerPl-sCnc 140.0 mmol/L Normal 06/15/2024 135 - 14 6 [facility] eGFRcr SerPlBld CKD-EPI 2020 50.0 mL/min/1.73m2 Below low normal 06/15/2024 - [facility] AST SerPl-cCnc 25.0 U/L Normal 06/15/2024 10 - 35 [facility] BUN SerPl-mCnc 17.0 mg/dL Normal 06/15/2024 7 - [address] [facility] Albumin SerPl-mCnc 3.6 g/dL Normal 06/15/2024 3.6 - 5.1 [facility] CO2 SerPl-sCnc 28.0 mmol/L Normal 06/15/2024 20 - 32 [facility] Prot SerPl-mCnc 5.8 g/dL Below low normal 06/15/2024 6.1 - 8.1 [facility] BUN/Creat SerPl 14.0 (calc) Normal 06/15/2024 6 - 22 [facility] Calcium SerPl-mCnc 9.1 mg/dL Normal 06/15/2024 8.6 - 10.4 [facility] ALP SerPl-cCnc 71.0 U/L Normal 06/15/2024 37 - 153 [facility] Glucose SerPl-mCnc 125.0 mg/dL Above high normal 06/15/2024 65 - 99 [facility] Potassium SerPl-sCnc 4.1 mmol/L Normal 06/15/2024 3.5 - 5 .3 [facility] History of Medication Use Medication Directions Dispensed Refills Start Date End Date Status amLODIPine 2.5 mg oral tablet 1 tab, Oral, Daily, 0 Refill(s) 06/28/20 Ordered dextroamphetamine 10 mg oral tablet ,tab, Oral 06/28/20 Ordered evolocumab (Repatha Kathyick) 140 MG/ML auto-injector Inject 1 mL (140 mg total) under the skin every 14 days (2 weeks). 06/28/20 active gabapentin 300 mg oral capsule ,cap, Oral, 0 Refill(s) 06/28/20 Ordered levothyroxine (SYNTHROID, LEVOTHROID) 25 MCG tablet Take 1 tablet (25 mcg total) by mouth. 06/28/20 active levothyroxine 25 mcg (0.025 mg) oral tablet 1 tab, Oral, Daily, 0 Refill(s) 06/28/20 Ordered losartan 25 mg oral tablet 1 tab, Oral, Daily, 0 Refill(s) 06/28/20 Ordered Mounjaro Subcutaneous, every week, 0 Refill(s) 06/28/20 Ordered NovoLOG Subcutaneous, TID(AC), 0 Refill(s) 06/28/20 Ordered Repatha SureClick 140 mg =, Subcutaneous, every 2 wk, 0 Refill(s) 06/28/20 Ordered Repatha SureClick Autoinjector 140 mg/mL subcutaneous solution 140 mg =, Subcutaneous, every 2 wk, 0 Refill(s) 06/28/20 Ordered rosuvastatin 20 mg oral tablet 1 tab, Oral, Daily, 0 Refill(s) 06/28/20 Ordered loteprednol (ALREX) 0.2 % Suspension Administer 1 drop to both eyes 2 times a day. 02/14/20 25 active Mounjaro 10 mg/0.5 mL subcutaneous pen injector Inject 10 mg every week by subcutaneous route. 12/01/19 25 active rosuvastatin 20 mg tablet TAKE 1 TABLET (20 MG TOTAL) BY MOUTH DAILY. TO PREVENT HEART ATTACK AND STROKE 10/07/19 25 active amlodipine 2.5 mg tablet Take 1 tablet every day by oral route. 08/18/20 24 active gabapentin (NEURONTIN) 300 MG capsule Take 2 capsules (600 mg total) by mouth 3 (three) times a day. 06/19/20 24 active gabapentin (NEURONTIN) 300 MG capsule Take 2 capsules (600 mg total) by mouth 3 (three) times a day. 03/10/20 24 active traMADol (ULTRAM) 50 MG tablet TAKE 1-2 TABS BY MOUTH EVERY 6-8 HOURS NEEDED FOR PAIN. MAXIMUM 6 PILLS IN 24 HOURS 02/25/20 24 active dextroamphetamine (DEXTROSTAT) 10 MG tablet Take 1 tablet (10 mg total) by mouth 3 (three) times a day. 01/29/20 24 active Tresiba FlexTouch 200 UNIT/ML SOPN INJECT 60 UNITS UNDER THE SKIN DAILY 12/27/19 24 active semaglutide, 2 MG/DOSE, (Ozempic, 2 MG/DOSE,) 8 MG/3ML SOPN injection Inject 0.75 mL (2 mg total) under the skin every 7 days. 12/03/19 24 active rosuvastatin (CRESTOR) tablet 20 mg Take 1 tablet (20 mg total) by mouth daily. To prevent heart attack and stroke 10/29/19 24 active losartan (COZAAR) tablet 25 mg TAKE 1 TABLET (25 MG TOTAL) BY MOUTH DAILY. 12/10/20 23 active amLODIPine (NORVASC) tablet 2.5 mg TAKE 1 TABLET BY MOUTH EVERY DAY 08/20/20 active Insulin Pen Needle (Pen Windber) 32G X 4 MM MISC Inject 1 each under the skin 4 (four) times a day. With Ozempic 03/26/20 active Mounjaro 5 MG/0.5ML pen-injector 08/13/20 aborted Tresiba FlexTouch 200 UNIT/ML prefilled pen injection INJECT 50 UNITS UNDER THE SKIN DAILY. STOP XULTOPHY 07/15/20 aborted amLODIPine (NORVASC) 2.5 MG tablet Take 1 tablet by mouth daily. 04/30/20 aborted losartan (COZAAR) 25 MG tablet Take 1 tablet by mouth daily. 04/30/20 aborted dextroamphetamine (DEXTROSTAT) 10 MG tablet Take 10 mg by mouth. 04/17/20 aborted HYDROcodone-acetamino phen (NORCO) 7.5-325 mg tablet 1 p.o. every 6-8 hours as needed severe pain. Stop tramadol while taking this medication. 04/17/20 active methocarbamol (ROBAXIN) 500 MG tablet 1-2 po bid prn muscle spasm 04/17/20 active predniSONE (DELTASONE) 20 MG tablet 2 qd x 5 d; take in AM with food 04/17/20 active traMADol (ULTRAM) 50 MG tablet TAKE 1-2 TABLETS ORALLY TWICE DAILY NEEDED FOR PAIN 03/26/20 active O-Hnoguugxdbgo-E2-B12 3-35-2 MG Tab Take 1 tablet by mouth 2 (two) times a day. 03/16/20 active pregabalin (LYRICA) 100 MG capsule Take 100 mg by mouth 2 (two) times a day. 12/22/19 active fluticasone-umeclidin ium-vilanterol (TRELEGY ELLIPTA) 200-62.5-25 mcg/act inhaler Inhale 1 puff daily. 11/09/19 025 active fluticasone-umeclidin ium-vilanterol (TRELEGY ELLIPTA) 200-62.5-25 MCG/INH inhaler Inhale 1 puff daily. 11/09/19 active ProAir HFA 108 (90 Base) MCG/ACT inhaler Inhale 2 puffs 4 times daily (every 6 hours) as needed for wheezing or shortness of breath. 11/09/19 22 active amLODIPine (NORVASC) 2.5 MG tablet Take 2.5 mg by mouth daily. 11/01/19 active losartan (COZAAR) 25 MG tablet Take 25 mg by mouth daily. 11/01/19 active azelastine (ASTELIN) 0.1 % nasal spray 10/17/19 22 active pregabalin (LYRICA) 100 MG capsule 10/15/19 22 active erythromycin (ILOTYCIN) ophthalmic ointment 10/09/19 22 active Insulin Pen Needle (BD Pen Needle Steffanie 2nd Gen) 32G X 4 MM Misc daily. 08/29/20 21 025 aborted Auvi-Q 0.3 MG/0.3ML auto-injection Inject intramuscularly into thigh as directed for anaphylaxis. May repeat in 5-10 minutes if not improving clinically. 08/02/20 21 active EPINEPHrine 0.3 mg/0.3 mL IJ auto-injection Inject intramuscularly into thigh as directed for anaphylaxis. May repeat in 5-10 minutes if needed 06/06/20 21 active OneTouch Delica Lancets 33G MISC Patient test glucose TID DX E11.9 01/15/20 20 active [facility] SORE THROAT MAX STRENGTH 15-2.6 MG Lozenge Take 1 lozenge by mouth as needed. 12/25/19 19 active rosuvastatin (CRESTOR) 20 MG tablet Take 20 mg by mouth daily. To prevent heart attack and stroke 11/01/19 19 active timolol (TIMOPTIC) 0.5 % ophthalmic solution Administer 1 drop to both eyes 2 (two) times a day. As directed 10/29/19 19 active EPINEPRHINE 0.3 MG/0.3ML injection See Admin Instructions. 03/27/20 16 active amoxicillin 500 mg capsule TAKE 1 CAPSULE BY MOUTH EVERY 8 HOURS FOR 5 DAYS 025 completed cephalexin 250 mg capsule TAKE 1 CAPSULE BY MOUTH 4 TIMES A DAY FOR 10 DAYS. 025 completed OneTouch Delica Plus Lancet 33 gauge PATIENT TEST GLUCOSE 3 TIMES A DAY DX E11.9 025 active Ozempic 1 mg/dose (4 mg/3 mL) subcutaneous pen injector INJECT 1 MG UNDER THE SKIN EVERY 7 DAYS 025 completed dextroamphetamine sulfate 10 mg tablet active Mounjaro 10 mg/0.5 m L subcutaneous pen injector active Medrol (Chuy) 4 mg tablets in a dose pack active cefadroxil 500 mg capsule TAKE 1 CAPSULE BY MOUTH TWICE A DAY FOR 5 DAYS FOR UTI. active dexamethasone 1 mg tablet TAKE 1 TABLET BY MOUTH ONCE AT 11 PM active dextroamphetamine sulfate 10 mg tablet TAKE 1 TABLET 3 TIMES A DAY BY ORAL ROUTE. active epinephrine 0.3 mg/0.3 mL injection, auto-injector USE DIRECTED FOR ALLERGIC REACTION active gabapentin 300 mg capsule Take 2 capsules 3 times a day by oral route. active insulin aspart U-100 100 unit/mL subcutaneous solution Inject 10 Units under the skin once. active levothyroxine 25 mcg tablet TAKE 1 TABLET BY MOUTH EVERY DAY active Linzess 72 mcg capsule TAKE 1 CAPSULE EVERY DAY BY ORAL ROUTE IN THE MORNING, FOR CONSTIPATION. active losartan 25 mg tablet Take 1 tablet ever y day by oral route. active loteprednol etabonate 0.2 % eye drops,suspension INSTILL 1 DROP INTO BOTH EYES TWICE A DAY active Novolog FlexPen U-100 Insulin aspart 100 unit/mL (3 mL) subcutaneous INJECT 10 UNITS SUBCUTANEOUSLY DAILY OR DIRECTED active Ozempic 2 mg/dose (8 mg/3 mL) subcutaneous pen injector INJECT 2 MG EVERY WEEK BY SUBCUTANEOUS ROUTE active Repatha SureClick 140 mg/mL subcutaneous pen injector INJECT 140 MG ONCE EVERY 14 DAYS active scopolamine 1 mg over 3 days transdermal patch APPLY ONE PATCH EVERY 3 DAYS NEEDED FOR SEA SICKNESS active sulfamethoxazole 800 mg-trimethoprim 160 mg tablet Take 1 tablet twice a day by oral route for 3 days. active tramadol 50 mg tablet TAKE 1 TO 2 TABLET S BY MOUTH EVERY 6 TO 8 HRS NEEDED FOR PAIN. MAXIMUM OF 6 TABS IN 24 HRS active Trelegy Ellipta 200 mcg-62.5 mcg-25 mcg powder for inhalation INHALE 1 PUFF DAILY active Tresiba FlexTouch U-200 insulin 200 unit/mL (3 mL) subcutaneous pen INJECT 60 UNITS UNDER THE SKIN DAILY active vancomycin 125 mg capsule TAKE 1 CAPSULE BY MOUTH 4 TIMES A DAY. active amphetamine-dextroamp hetamine (ADDERALL) 30 MG tablet Take 30 mg by mouth daily. active dexAMETHasone (DECADRON) 1 MG tablet 1 tablet (1 mg total). active fidaxomicin (DIFICID) 200 MG tablet Take 200 mg by mouth twice daily (every 12 hours). active insulin aspart (NovoLOG) 100 UNIT/ML injection Inject 0.1 mL (10 Units total) under the skin. active insulin aspart (NovoLOG) injection 100 units/mL Inject 10 Units under the skin once. active insulin degludec (Tresiba FlexTouch) 100 UNIT/ML prefilled pen injection Inject 46 Units under the skin nightly. active metFORMIN (GLUCOPHAGE) 850 MG tablet Take 850 mg by mouth 2 (two) times a day with meals. active Mounjaro 10 MG/0.5ML pen-injector INJECT 10 MG SUBCUTANEOUSLY WEEKLY active NovoLOG FLEXPEN, insulin aspart, 100 UNIT/ML prefilled pen injection INJECT 10 UNITS SUBCUTANEOUSLY DAILY OR DIRECTED active Allergies Allergen Reaction Severity Comment Documented Date Source Status [facility]P VENOM [facility]NAPHYLAXIS [facility] BUPRENORPHINE OTHER (SEE COMMENTS) Skin irritation 05/01/2023 [facility] active WASP VENOM PROTEIN ANAPHYLAXIS 07/31/2022 [facility] active BEE STING ANAPHYLAXIS Honey Bees 11/03/2017 [facility] ac tive BEE VENOM ANAPHYLAXIS Honey bees 02/28/2017 [facility] acti ve BEESWAX ANAPHYLAXIS 04/23/2016 [facility] active CODEINE NAUSEA AND VOMITINGOTHER (SEE COMMENTS) 05/18/2015 CTTFRAN active ROSUVASTATIN MYALGIAS (MUSCLE PAIN)MYALGIA/MINI SITIS/ARTHRALGIA /ARTHRITIS [facility] HORNET VENOM ANAPHYLAXIS CTTHSFRAN VENOM-WASP ANAPHYLAXIS [facility] VENOM-YELLOW HORNET ANAPHYLAXIS [facility] VENOM-HONEY BEE ANAPHYLAXIS [facility] BEE VENOM PROTEIN (HONEY BEE) ANAPHYLAXIS [facility] BEES/STINGING INSECTS ANAPHYLACTIC REACTION CTNVEMG BUTRANS [facility] DICYCLOMINE OTHER (SEE COMMENTS) [facility] LOPERAMIDE OTHER (SEE COMMENTS) [facility] PROMETHAZINE [facility] Problems Problem Status Onset Date Problem Type Date of Resolution Source Obstructive sleep apnea syndrome active 2018-05-31 8 ProblemAct [facility] Acquired hypothyroidism active 2025-05-01 0 ProblemAct [facility] Electrocardiogram abnormal active 9 ProblemAct [facility] Heart failure with normal ejection fraction active 2019-05-01 0 ProblemAct [facility] 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-01 1 ProblemAct [facility] Nodule of lung active 5 ProblemAct [facility] Insulin treated type 2 diabetes mellitus active 2019-10-01 8 ProblemAct [facility] Venous insufficiency of lower limb active 5 ProblemAct [facility] Chronic obstructive pulmonary disease active 2018-11-29 5 ProblemAct [facility] Kidney stone active 2018-03-01 4 ProblemAct [facility] Bilateral trochanteric bursitis active 2018-08-01 1 ProblemAct [facility] Ex-smoker active 2019-01-28 4 ProblemAct [facility] Bilateral peripheral neuropathy of lower limbs active 2018-03-01 4 ProblemAct [facility] Hypersomnia active 2015-04-30 9 ProblemAct [facility] Calcification of coronary artery active 2019-01-28 4 ProblemAct [facility] Adenoma of right adrenal gland active 4 ProblemAct [facility] Spinal stenosis of lumbar region active 2018-09-30 6 ProblemAct [facility] Chronic kidney disease stage 3A active 2020-07-31 1 ProblemAct [facility] Hypersomnia with sleep apnea active 2015-06-30 4 ProblemAct [facility] Pneumonia active 1 ProblemAct [facility] History of surgery for cerebral aneurysm active 9 ProblemAct [facility] Abdominal aortic atherosclerosis active 2018-05-31 8 ProblemAct [facility] Chronic kidney disease stage 3 active 6 ProblemAct [facility] Trochanteric bursitis of right hip active 1 ProblemAct [facility] Uncontrolled type 2 diabetes mellitus active 6 ProblemAct [facility] Degeneration of lumbosacral intervertebral disc active 2018-08-01 1 ProblemAct [facility] Essential hypertension active 9 ProblemAct [facility] Bilateral adenoma of adrenal glands active 6 ProblemAct [facility] Hypersomnia with sleep apnea active 2015-06-30 4 ProblemAct [facility] CKD (chronic kidney disease) stage 3, GFR 30-59 ml/min active 2021-07-31 0 ProblemAct [facility] Diabetes, polyneuropathy active 2021-07-31 0 ProblemAct [facility] Venous (peripheral) insufficiency active EncounterDiagnosisAct [facility] CINDY (obstructive sleep apnea) active 1 ProblemAct [facility] Abnormal electrocardiogram active 9 ProblemAct [facility] Recurrent major depressive disorder active 2021-07-31 0 ProblemAct [facility] Swelling of limb active EncounterDiagnosisAct [facility] Spinal stenosis of lumbar region active 2021-07-31 0 ProblemAct [facility] Trochanteric bursitis active 2021-07-31 0 ProblemAct [facility] Type 2 diabetes mellitus with hyperglycemia, without long-term current use of insulin active 1 ProblemAct [facility] Coronary artery calcification seen on CT scan active 2021-07-31 0 ProblemAct [facility] Cigarette nicotine dependence in remission active 2021-07-31 0 ProblemAct [facility] Acute respiratory failure with hypoxia active 1 ProblemAct [facility] Shortness of breath active 9 ProblemAct [facility] Chronic diastolic heart failure active 2021-07-31 0 ProblemAct [facility] Asthma-COPD overlap syndrome active 5 ProblemAct [facility] At risk for falls (finding) active ProblemAct [facility] Nephrolithiasis active 2018-03-01 4 ProblemAct CTTHSFR[facility] Type 2 diabetes mellitus with hyperglycemia, with long-term current use of insulin active 2018-09-30 6 ProblemAct [facility] Neuropathy involving both lower extremities active 2018-03-01 4 ProblemAct [facility] Sepsis active 1 ProblemAct [facility] Osteochondromatosis, synovial active 2018-08-01 1 ProblemAct [facility] Pulmonary nodule active 5 ProblemAct [facility] Pneumonia active 1 ProblemAct [facility] Other abnormal and inconclusive findings on diagnostic imaging of breast active EncounterDiagnosisAct CTTHSF RAN DDD (degenerative disc disease), lumbosacral active 2018-08-01 1 ProblemAct [facility] Heart failure with preserved ejection fraction, NYHA class I active 2019-05-01 0 ProblemAct [facility] Former smoker active 2019-01-28 4 ProblemAct [facility] Spinal stenosis of lumbar region with neurogenic claudication active 2018-09-30 6 ProblemAct [facility] Adenoma of right adrenal gland active 4 ProblemAct [facility] Trochanteric bursitis of right hip active 1 ProblemAct [facility] Immunizations Vaccine Date Source Lot Number Status influenza, high dose seasona l, preservative-free 07/14/2025 [facility] [id number] completed Respiratory syncytial virus (RSV), vaccine, bivalent, protein subunit RSV prefusion F, diluent reconstituted, 0.5 mL, preservative free 11/10/2024 [facility] completed Respiratory syncytial virus (RSV), vaccine, bivalent, protein subunit RSV prefusion F, diluent reconstituted, 0.5 mL, preservative free 11/10/2024 [facility] completed Seasonal trivalent influenza vaccine, adjuvanted, preservative free 07/27/2024 CT_BINGE [id number] co mpleted Seasonal trivalent influenza vaccine, adjuvanted, preservative free 07/27/2024 [facility] [id number] co mpleted Pneumococcal conjugate vacci ne 20-valent (PCV20), polysaccharide [id number] conjugate, adjuvant, preservative free 09/08/2023 CT_BNIG[facility] [id number] comp leted Pneumococcal conjugate vacci ne 20-valent (PCV20), polysaccharide [id number] conjugate, adjuvant, preservative free 09/08/2023 [facility] [id number] comp leted zoster vaccine subunit 09/08/2023 [facility] [id number] co mpleted zoster vaccine subunit 09/08/2023 [facility] [id number] co mpleted influenza, seasonal vaccine, quadrivalent, adjuvanted, 0.5 mL dose, preservative free 06/06/2023 CT_[facility] [id number] completed influenza, seasonal vaccine, quadrivalent, adjuvanted, 0.5 mL dose, preservative free 06/06/2023 CT_[facility]E [id number] 2 completed influenza, high-dose seasona l, quadrivalent, preservative free 07/28/2022 [facility] [id number] completed influenza, high-dose seasona l, quadrivalent, preservative free 07/28/2022 [facility] [id number] completed SARS-COV-2 (COVID-19) vaccin e, mRNA, spike protein, LNP, preservative free, 100 mcg/0.5mL dose 09/15/2021 [facility] [id number] completed SARS-COV-2 (COVID-19) vaccin e, mRNA, spike protein, LNP, preservative free, 100 mcg/0.5mL dose 09/15/2021 [facility]TE [id number] completed zoster vaccine subunit 09/15/2021 [facility] [id number] co mpleted zoster vaccine subunit 09/15/2021 [facility] [id number] co mpleted influenza, high-dose seasona l, quadrivalent, preservative free 07/11/2021 [facility]TE [id number] completed influenza, high-dose seasona l, quadrivalent, preservative free 07/11/2021 [facility] [id number] completed SARS-COV-2 (COVID-19) vaccin e, mRNA, spike protein, LNP, preservative free, 100 mcg/0.5mL dose 01/02/2021 [facility] [id number] completed SARS-COV-2 (COVID-19) vaccin e, mRNA, spike protein, LNP, preservative free, 100 mcg/0.5mL dose 01/02/2021 [facility] [id number] completed SARS-COV-2 (COVID-19) vaccin e, mRNA, spike protein, LNP, preservative free, 100 mcg/0.5mL dose 12/05/2020 [facility] [id number] completed SARS-COV-2 (COVID-19) vaccin e, mRNA, spike protein, LNP, preservative free, 100 mcg/0.5mL dose 12/05/2020 [facility] [id number] completed Influenza, injectable, Madin Danette Canine Kidney, preservative free, quadrivalent 06/13/2019 [facility] [id number] completed Influenza, injectable, Madin Nilwood Canine Kidney, preservative free, quadrivalent 06/13/2019 [facility] [id number] completed pneumococcal polysaccharide vaccine, 23 valent 01/16/2019 [facility] [id number] completed pneumococcal polysaccharide vaccine, 23 valent 01/16/2019 [facility] [id number] completed Influenza, injectable, quadr ivalent, preservative free 06/17/2018 [facility] [id number] completed Influenza, injectable, quadr ivalent, preservative free 06/17/2018 [facility] [id number] completed influenza virus vaccine, uns pecified formulation 07/13/2015 MIRIAN [id number] completed influenza virus vaccine, uns pecified formulation 07/13/2015 [facility] [id number] completed influenza, seasonal, injecta ble, preservative free 07/13/2015 [facility] [id number] completed influenza, seasonal, injecta ble, preservative free 07/13/2015 MARY_EVERETTE [id number] completed Encounters Encounter Type Encounter Reason Primary Diagnosis Location Date Ambulatory [facility] 08/18/2025 Ambulatory [facility] 08/16/2025 Ambulatory Disorder of pigmentation, unspecified Disorder of pigmentation, unspecified [place] [facility] 08/12/2025 Ambulatory Consult Consult [facility] 07/23/2025 Ambulatory Atherosclerotic hear t disease of [place] coronary artery without angina pectoris Atherosclerotic heart disease of [place] coronary artery without angina pectoris [place] [facility] 07/14/2025 Ambulatory JUAN JOSE LOWER BACK PAIN WITH VERY HEAVY LEGS LAST 2019 PT [facility] 06/28/2025 Ambulatory [facility] 05/20/2025 Ambulatory [facility] 05/19/2025 Ambulatory [facility] 05/07/2025 Ambulatory Other specified chronic obstructive pulmonary disease Other specified chronic obstructive pulmonary disease [place] [facility] 03/04/2025 Ambulatory [facility] 02/10/2025 Ambulatory [facility] 02/10/2025 Ambulatory [facility] 12/15/2024 Ambulatory [facility] 12/03/2024 Ambulatory [facility] 12/03/2024 Ambulatory [facility] 12/03/2024 Ambulatory [facility] 11/30/2024 Ambulatory [facility] 11/26/2024 Ambulatory [facility] 11/24/2024 Ambulatory [facility] 10/29/2024 Ambulatory Other abnormal and inconclusive findings on diagnostic imaging of breast Other abnormal and inconclusive findings on diagnostic imaging of breast [facility] 03/19/2024 Ambulatory [facility] 01/17/2024 Ambulatory Postlaminectomy syndrome, not elsewhere classified [facility] 09/07/2022 Ambulatory Postlaminectomy syndrome, not elsewhere classified [facility] 07/10/2022 Ambulatory [facility] 05/25/2022 Ambulatory Radiculopathy, l umbar region [facility] 05/25/2022 Ambulatory Radiculopathy, l umbar region [facility] 04/24/2022 Ambulatory Type 2 diabetes mellitus with other diabetic neurological complication [facility] 04/16/2022 Ambulatory [facility] 03/17/2022 Ambulatory Localized edema [facility] 03/16/2022 Ambulatory [facility] 11/23/2021 Ambulatory Chronic obstruct ronnie pulmonary disease, unspecified [facility] 11/09/2021 Ambulatory Shortness of breath [facility] 11/09/2021 Ambulatory Shortness of breath [facility] 08/08/2021 Ambulatory Toxic effect of venom of other arthropod, accidental (unintentional), subsequent encounter [facility] 08/02/2021 Care Team Organization Name Specialty Phone Email Start Date End Da te [facility] 07/22/2025 [facility] 07/14/2025 [facility] V[facility]IA RIZVI Primary Care 07/14/2025 [facility] Primary Care 06/29/2025 [facility] Primary Care 06/28/2025 [facility] 06/16/2025 [facility] Jevon Han Primary Care 04/09/2025 [facility] - [facility] CCDA 03/12/2025 [facility] - [facility] ADT 03/12/20 [facility] - [facility] CCDA 03/01/2025 03/03/2025 [facility] 02/10/2025 025 [facility] Jevon Han Primary Care 12/17/2024 04/09/2025 [facility] Termed, PROVIDER Primary Care 12/09/202403/30 [facility] 11/08/2024 [facility] No provided Primary Care 04/30/2024 [facility] Woody Primary Care 04/16/2024 [facility] VELIA RIZVI Primary Care 03/20/2024 [facility] provided,No Primary Care 01/18/2024 07/31/2024 [facility] 01/10/202401/28 [facility] [employer] 12/03/2023 03/01/2024 [facility] - Kimberly ADT 05/10/2003/12/2025 [facility] CCDA 05/10/2023 02/27/2025 [facility] Primary Care 03/08/2023 [facility] VELIA RIZVI Primary Care 07/10/2022 [facility] Johnny Primary Care 08/02/2021 07/10/2022 [facility] Priscila Raza MD Primary Care 06/22/2021 05/18/2024 [facility], P[facility]IA MONDRAGON Primary Care 06/16/2021 0 05/18/2024
--- OUTSIDE RECORDS SUMMARY | 2025-09-08 22:01 | XMS_ITS | Encounter Summary ---
Author Organization [facility] Address [address] [place] [address] Care Team Providers Care Pulley Worker Name Role Phone Katie Turner Primary Care Provider [phone] Harley Ly MD Unavailable [phone] Encounter Details Date Type Department Care Team (Late Contact Info) Description 05/17/2022 Scanned Document [facility] [place] [address] [place] [phone] Pulmonary, Scan Social History Tobacco Use Types [...] Info) Description 09/20/2025 9:30 AM EST Appointment [facility] [place] [address] [place] [phone] Harley Ly MD [address] [place] [address] [phone] documented as of this encounter Goals Goal [...] on filedocumented in this encounter Care Teams Pulley Worker Relationship Specialty Start Date End Date Katie Turner PA PCP - General 04/03/16 Harley Ly MD [address] [place] [address] [place] [address] Primary Compensation And Benefits Advisor Cardiovascular Disease 07/27/25 documented as of this encounter
--- OUTSIDE RECORDS SUMMARY | 2025-09-08 22:01 | XMS_ITS | Encounter Summary ---
Author Organization [facility] Address [address] [place] [address] Care Team Providers Care Wedding Consultant Name Role Phone Katie Turner Primary Care Provider [phone] Harley Ly MD Unavailable [phone] Encounter Details Date Type Department Care Team ([facility] Contact Info) Description 08/09/[address] [facility] [place] [address] [place] [phone] Marcia Arita PA [address] [facility] [address] [place] [address] Social History Tobacco Use Types Packs/Day Years [...] Info) Description 09/20/2025 9:30 AM EST Appointment [facility] [place] [address] [place] [phone] Harley Ly MD [address] [place] [address] documented as of this encounter Goals Goal Patient Goal Type Associated Problems Recent Progress Patient-Stated? Author Cut out extra servings Diet No Evelyn Cruz MA documented as of this encounter Visit Diagnoses Not on filedocumented in this encounter Care Teams Wedding Consultant Relationship Specialty Start Date End Date Katie Turner PA PCP - General 04/03/16 Halrey Ly MD [address] [place] [address] Primary Glove Parts Inspector Cardiovascular Disease 07/27/25 documented as of this encounter
--- OUTSIDE RECORDS SUMMARY | 2025-09-08 22:01 | XMS_ITS | Encounter Summary ---
Author Organization [facility] Address [address] [place] [address] Care Team Providers Care Chemistry Quality Control Technician Name Role Phone Katie Turner Primary Care Provider [phone] Harley Ly MD Unavailable [phone] Encounter Details Date Type Department Care Team ([facility] Contact Info) Description 11/29/2021 Scanned Document [facility] Pulmonary [place] [address] [place] [phone] María Armendariz MD [address] [facility] [address] [place] [address] Social History Tobacco Use Types Packs/Day Years [...] Orientation Pansexual 03/01/2025 11 :46 AM EDT COVID-19 Exposure Response Date Recorded In the last month, have you been in contact with someone who was confirmed or suspected to have Coronavirus / COVID-19? No / Unsure 11/23/2021 11:10 AM EST documented as of this encounter Plan of Treatment Upcoming Encounters Date Type Department Care Team (Late st Contact Info) Description 09/20/2025 9:30 AM EST Appointment [facility] Heart [facility] Vascular [address] [phone] Harley Ly MD [address] [place] [address] documented as of this encounter Goals Goal Patient Goal Type Associated Problems Recent Progress Patient-Stated? Author Cut out extra servings Diet No Evelyn Cruz MA PT LTG 1 Physical Therapy No Isabel Calderon PT Note: In 10 weeks the patient will be independent with HEP. PT LTG 2 Physical Therapy No Isabel Calderon, PT Note: In 10 weeks the patient will be able to ambulate >/= 1000 feet indoors and outdoors without reports of pain or the need to rest in order to improve overall mobility and quality of life. PT LTG 3 Physical Therapy No Isabel Calderon, PT Note: In 10 weeks the patient will be able to safely navigate her stairs while carrying objects up/down without pain so that she is able to safely do her laundry at home and remain independent. documented as of this encounter Visit Diagnoses Not on filedocumented in this encounter Care Teams Chemistry Quality Control Technician Relationship Specialty Start Date End Date Katie Turner PA PCP - General 04/03/16 Harley Ly MD [address] [place] [address] Primary Medical Records Secretary Cardiovascular Disease 07/27/25 documented as of this encounter
--- OUTSIDE RECORDS SUMMARY | 2025-09-08 22:01 | XMS_ITS | Clinical Summary ---
Author Organization [facility] Address [address] [place] [address] Care Team Providers Care Ore Buyer Name Role Phone Katie Rizvi Primary Care Provider [phone] Harley Ly MD Unavailable [phone] Allergies Active Allergy Reactions Criticality Noted Date Comments Bee Venom Anaphylaxis High 02/28/2017 Buprenorphine Other (See Comments) Low 05/01/2023 Skin irritation buprenorphine Codeine GI Intolerance/Nausea/Vomiti ng,Nausea And Vomiting,Other (See Comments) Low 01/16/2003 GI upset Dicyclomine Other (See Comments) Low 12/03/2023 Hornet Venom Anaphylaxis High 07/14/2025 Loperamide Other (See Comments) Low 12/03/2023 Rosuvastatin Myalgia/Myositis/Art hralg ia/Arthritis Low 07/14/2025 Wasp Venom Anaphylaxis High 07/14/2025 Medications EPINEPRHINE 0.3 MG/0.3ML injection See Admin Instructions. 0 03/27/20 16 Active [facility] SORE THROAT MAX STRENGTH 15-2.6 MG Lozenge Take 1 lozenge by mouth as needed. 0 12/25/19 19 Active timolol (TIMOPTIC) 0.5 % ophthalmic solution Administer 1 drop to both eyes 2 (two) times a day. As directed 3 10/29/19 19 Active fidaxomicin (DIFICID) 200 MG tablet Take 200 mg by mouth twice daily (every 12 hours). Active amphetamine-dext roamphetamine (ADDERALL) 30 MG tablet Take 30 mg by mouth daily. Active dextroamphetamin e (DEXTROSTAT) 10 MG tablet Take 10 mg by mouth daily. Active EPINEPHrine 0.3 mg/0.3 mL IJ auto-injectionIn dications:Toxic effect of venom, accidental or unintentional, initial encounter Inject intramuscularly into thigh as directed for anaphylaxis. May repeat in 5-10 minutes if needed 2 each 1 06/06/20 21 Active Auvi-Q 0.3 MG/0.3ML auto-injectionIn dications:Anaphy laxis due to hymenoptera venom, accidental or unintentional, subsequent encounter Inject intramuscularly into thigh as directed for anaphylaxis. May repeat in 5-10 minutes if not improving clinically. 2 each 1 08/02/20 21 Active insulin degludec (Tresiba FlexTouch) 100 UNIT/ML prefilled pen injection Inject 46 Units under the skin nightly. Active Respiratory Therapy Supplies DeviceIndication s:CINDY (obstructive sleep apnea) CPAP Airsense 11 auto 9-20 cmH2O EPR 3 multimedia programmer, heated humidifier, fit for mask, ALL CPAP supplies CIRA 99 1 each 10/25/19 22 Active amLODIPine (NORVASC) 2.5 MG tablet Take 2.5 mg by mouth daily. 11/01/19 22 Active azelastine (ASTELIN) 0.1 % nasal spray 10/17/19 22 Active erythromycin (ILOTYCIN) ophthalmic ointment 10/09/19 22 Active BD Pen Needle Steffanie 2nd Gen 32G X 4 MM Misc 08/29/20 21 Active losartan (COZAAR) 25 MG tablet Take 25 mg by mouth daily. 11/01/19 22 Active ProAir HFA 108 (90 Base) MCG/ACT inhalerIndicatio ns:Chronic obstructive pulmonary disease, unspecified COPD type ([facility]) Inhale 2 puffs 4 times daily (every 6 hours) as needed for wheezing or shortness of breath. 18 g 3 11/09/19 22 Active Respiratory Therapy Supplies DeviceIndication s:CINDY (obstructive sleep apnea) Please provide patient with CPAP filters CIRA 99 1 each 11/21/19 22 Active S-Shixdduuvkqg-I 6-B12 3-35-2 MG TabIndications:E carlos of left foot,Type II or unspecified type diabetes mellitus with neurological manifestations, not stated as uncontrolled(250 .60) ([facility]) Take 1 tablet by mouth 2 (two) times a day. 60 tablet 1 03/16/20 Active dextroamphetamin e (DEXTROSTAT) 10 MG tablet Take 10 mg by mouth. 04/17/20 Active HYDROcodone-acet aminophen (NORCO) 7.5-325 mg tablet 1 p.o. every 6-8 hours as needed severe pain. Stop tramadol while taking this medication. 04/17/20 Active methocarbamol (ROBAXIN) 500 MG tablet 1-2 po bid prn muscle spasm 04/17/20 Active predniSONE (DELTASONE) 20 MG tablet 2 qd x 5 d; take in AM with food 04/17/20 Active traMADol (ULTRAM) 50 MG tablet TAKE 1-2 TABLETS ORALLY TWICE DAILY NEEDED FOR PAIN 03/26/20 Active SUPPLY DME MISCIndications: Lumbar radiculopathy,DD D (degenerative disc disease), lumbar Lumbar corset 1 each 05/25/20 Active dexAMETHasone (DECADRON) 1 MG tablet 1 tablet (1 mg total). Active NovoLOG FLEXPEN, insulin aspart, 100 UNIT/ML prefilled pen injection INJECT 10 UNITS SUBCUTANEOUSLY DAILY OR DIRECTED Active gabapentin (NEURONTIN) 300 MG capsule Take 2 capsules (600 mg total) by mouth 3 (three) times a day. 06/19/20 Active insulin aspart (NovoLOG) 100 UNIT/ML injection Inject 0.1 mL (10 Units total) under the skin. Active loteprednol (ALREX) 0.2 % Suspension Administer 1 drop to both eyes 2 times a day. 02/14/20 Active Mounjaro 10 MG/0.5ML pen-injector INJECT 10 MG SUBCUTANEOUSLY WEEKLY Active fluticasone-umec lidinium-vilante rol (TRELEGY ELLIPTA) 200-62.5-25 mcg/act inhalerIndicatio ns:Chronic obstructive pulmonary disease, unspecified COPD type (HCC) Inhale 1 puff daily. 60 each 11 03/04/20 Active evolocumab (Repatha SureClick) 140 MG/ML auto-injector Inject 1 mL (140 mg total) under the skin every 14 days (2 weeks). 06/28/20 Active levothyroxine (SYNTHROID, LEVOTHROID) 25 MCG tablet Take 1 tablet (25 mcg total) by mouth. 06/28/20 25 Active Active Problems Problem Noted Date Diagnosed Date Asthma-COPD overlap syndrome 03/04/2025 Diabetes, polyneuropathy 08/09/2021 Spinal stenosis of lumbar region 08/09/2021 Trochanteric bursitis 08/09/2021 Coronary artery calcification seen on CT scan CKD (chronic kidney disease) stage 3, GFR 30-59 ml/min 08/09/2021 Recurrent major depressive disorder 08/09/2021 Chronic diastolic heart failure 08/09/2021 Cigarette nicotine dependence in remission 08/09 Type 2 diabetes mellitus wit h hyperglycemia, without long-term current use of insulin 12/29/2018 Acute respiratory failure with hypoxia 9 CINDY (obstructive sleep apnea) 12/29/2018 Abnormal electrocardiogram 11/08/2015 Shortness of breath 11/08/2015 Benign essential hypertension 11/08/2015 History of surgery for cerebral aneurysm 016 Hypersomnia with sleep apnea 07/13/2015 Resolved Problems Problem Noted Date Diagnosed Date Resolved Date HAP (hospital-acquired pneumonia) 12/29/2018 12/12/2023 Sepsis 12/29/2018 08/09/2021 Encounters Date Type Department Care Team Description 08/12/2025 11:00 AM EST Ancillary Procedure [facility] [address] [phone] Shawna Garcia PA-C Discoloration of skin of multiple sites of lower extremity 07/23/2025 1:00 PM EDT Consult [facility] [address] [phone] Shawna Garcia PA-C Swelling of limb (Primary Dx); Venous (peripheral) insufficiency 07/14/2025 1:00 PM EDT Consult [facility] [place] [phone] Harley Ly MD Coronary artery calcification seen on CT scan (Primary Dx); AVILA (dyspnea on exertion); Claudication 07/14/2025 Documentation [facility] [address] [address] [place] [address] Marilu Dumont RN from Last 3 Months Family History Medical History Relation Name Comments COPD Father Heart attack Father Tobacco Use Father Cancer Mother Coronary artery disease Mother CABG Heart attack Mother Tobacco Use Mother Breast cancer Sister Tracy Leukemia Sister Tracy Stroke Sister Tracy No Known Problems Son Chano Relation Name Status Comments Brother Javier Alive Father Mother Sister Trcay Alive Son Chano Alive Social History Tobacco Use Types Packs/Day Years Used Date Smoking Tobacco: Former Cigarettes 1.5 50 1 [id number] Smokeless Tobacco: Never Tobacco Cessation:Counseling Given: Not Answered Alcohol Use Standard Drinks/Week Comments No 0 (1 standard drink = 0.6 oz pur e alcohol) Comments Unknown Sex and Gender Information Value Date Recorded Sex Assigned at Female 03/01/2025 11:46 AM EDT Legal Sex Female 4:34 PM EDT Gender Identity Female 03/01/2025 11:46 AM EDT Sexual Orientation Heterosexual (straight) 03/01 11:46 AM EDT Sexual Orientation Pansexual 03/01/2025 11 :46 AM EDT Last Filed Vital Signs Vital Sign Reading Time Taken Comments Blood Pressure 158/70 07/23/2025 1:01 PM EDT L 1 66/64 Pulse 85 07/23/2025 1:01 PM EDT Temperature 36.5 C (97.7 F) 03/04/2025 7:39 AM EDT Respiratory Rate 18 09/07/2022 9:01 AM EST Oxygen Saturation 98% 07/23/2025 1:01 PM EDT Inhaled Oxygen Concentration - - Weight 104 kg (230 lb) 07/23/2025 1:01 PM EDT Height 170.2 cm (5' 7 ) 07/23/2025 1:01 PM EDT Body Mass Index 36.02 07/23/2025 1:01 PM EDT Plan of Treatment Upcoming Encounters Date Type Department Care Team (Late st Contact Info) Description 09/20/2025 9:30 AM EST Appointment [facility] [place] [address] [phone] Harley Ly MD [address] [place] [phone] Health Maintenance Due Date Last Done Comments Hepatitis C Virus Screening 1955 Ophthalmology Exam 1965 DTaP/Tdap/Td Vaccines (1 - Tdap) 1974 Pneumococcal Vaccines 50+ (1 of 2 - PCV) 1974 Mammogram 1995 RSV Vaccine 50 years and older and Patients (1 - Risk 50-74 years 1-dose series) 2005 Zoster (Shingles) Vaccine (1 of 2) 2005 DXA Bone Density (Females,Ages 65 and older) 2020 Microalbumin/Creatinine Ratio Urine 06/10/2024 06/10/2023, 07/17/2022, 12/21/2021, Additional history exists Hemoglobin A1C 05/02/2025 11/02/2024, 05/31, 03/03/2024, Additional history exists COVID-19 Vaccine ( season) 2025 09/15/2021, 01/02/2021, 12/05/2020 Lung Cancer Screening ([facility]) 03/16/2026, 09/01/2022, 02/14/2022, Additional history exists Foot Exam 07/14/2026 07/14/2025, 07/14/2025 Creatinine with GFR 08/05/2026 08/05/2025, 12/30/2018, 12/29/2018 Lipid Panel 08/05/2026 08/05/2025 Colonoscopy 08/01/2032 08/01/2022 Advance Care Planning Completed 01/04/2019 Influenza Vaccine Completed 07/14/2025, , 06/06/2023, Additional history exists Hepatitis B Vaccines Aged Out No long er eligible based on patient's age to complete this topic Goals Goal Patient Goal Type Associated Problems Recent Progress Patient-Stated? Author Cut out extra servings Diet No Evelyn Cruz MA PT LTG 1 Physical Therapy No Isabel Calderon, PT Note: [...] her laundry at home and remain independent. Procedures Procedure Name Priority Date/Time Associated Diagnosis Comments VAS VENOUS DUPLEX - LEG Routine 08/12/2025 12:05 PM EST Discoloration of skin of multiple sites of lower extremity TSH, HIGHLY SENSITIVE Routine 08/05/2025 1:19 PM EST Coronary artery calcification seen on CT scan COMPREHENSIVE METABOLIC PANEL Routine 08/05/2025 1:19 PM EST Coronary artery calcification seen on CT scan LIPOPROTEIN (A) Routine 08/05/2025 1:19 PM EST Coronary artery calcification seen on CT scan LIPID PANEL REFLEX DIRECT LDL Routine 08/05/2025 1:19 PM EST Coronary artery calcification seen on CT scan MR SPINE - LUMBAR WITHOUT CONTRAST Routine 07/30/2025 12:12 PM EDT MR SPINE - THORACIC WITHOUT CONTRAST Routine 07/30/2025 12:12 PM EDT MR SPINE - CERVICAL WITHOUT CONTRAST Routine 07/30/2025 12:12 PM EDT MR LT SHOULDER WITHOUT CONTRAST Routine 07/30/2025 11:01 AM EDT ECG 12-LEAD Routine 07/14/2025 12:58 PM EDT Coronary artery calcification seen on CT scan XR SPINE THORACIC 2 VIEWS Routine 07/06/2025 11:33 AM EDT XR SPINE LUMBOSACRAL 2/3 VIEWS Routine 07/06/2025 11:31 AM EDT XR SPINE CERVICAL 2/3 VIEWS Routine 07/06/2025 11:[address] CHEST LOW DOSE CANCER BASELINE SCREENING Routine 03/16/2025 11:33 AM EDT Encounter for screening for lung cancer Cigarette nicotine dependence in remission HEMOGLOBIN A1C WITH ESTIMATED AVERAGE GLUCOSE Routine 12/31/2018 7:48 AM EDT from Last 3 Months or Most Recently Relevant to Health Maintenance Results * VAS VENOUS DUPLEX LEG (REFLUX)-BILATERAL (08/12/2025 12:05 PM EST) Anatomical Region Laterality Modality Ultrasound 08/12/2025 11:0 0 AM EST Narrative 08/12/2025 2:18 PM EST Table formatting from the original result was not included. Department: [facility] Vascular Lab ([place]) Patient: [id number] (HEMALATHA TUCKER) Patient Location: [facility] CPT Code: 69176 ICD-9: Referring Physician: SHAWNA GARCIA Impression The patient was supine with exam table in reverse trendelenburg during the study. Duplex ultrasound of the right lower extremity demonstrates evidence of deep venous insufficiency at the level of the common femoral vein with reflux times greater than one second in duration. Superficial venous insufficiency is present in the small saphenous vein, with reflux times >0.5 seconds in duration. Small saphenous vein vessel diameter is 1.7mm. The sapheno-popliteal junction is not visualized. Duplex scan of the left lower extremity demonstrates no evidence of venous valvular incompetency. There is no evidence of deep venous thrombosis. There is no evidence of deep venous thrombosis bilaterally. Indications Swelling of Limb [M79.89]. History of bilateral lower extremity swelling and heaviness Findings: Right Competency Reflux Time (sec) Diameter AP (mm) Compressibility Common Femoral Vein Reflux 1.00 Complete Proximal femoral vein Complete Mid femoral vein Competent Complete Distal femoral vein Complete Popliteal Competent Complete Sapheno Femoral Junction Competent 5.00 Complete Great Saphenous Vein -Thigh Proximal Competent 4.20 Complete Great Saphenous Vein -Thigh Mid Competent Great Saphenous Vein -Thigh Distal Competent Great Saphenous Vein -Knee Competent 3.30 Sapheno Popliteal Junction N/A Small Saphenous Vein -Calf Proximal Reflux 2.00 1.60 Complete Small Saphenous Vein -Calf Mid Reflux 1.40 1.70 Left Competency Compressibility Common Femoral Vein Competent Complete Proximal femoral vein Complete Mid femoral vein Competent Complete Distal femoral vein Complete Popliteal Competent Complete Sapheno Femoral Junction Competent Complete Great Saphenous Vein -Thigh Proximal Competent Complete Great Saphenous Vein -Thigh Mid Competent Great Saphenous Vein -Thigh Distal Competent Great Saphenous Vein -Knee Competent Small Saphenous Vein -Calf Proximal Competent Complete Electronically Signed by: Brenda Salazar MD, RPVI on 2025-08-12 02:18:59 PM End of Report Procedure Note Brenda Salazar MD - 08/12/2025 Department: [facility] Vascular Lab ([place]) Patient: [id number] (HEMALATHA TUCKER) Patient Location: [facility] CPT Code: 50374 ICD-9: Referring Physician: SHAWNA GARCIA Impression The patient was supine with exam table in reverse trendelenburg during thestudy. Duplex ultrasound of the right lower extremity demonstrates evidence ofdeep venous insufficiency at the level of the common femoral vein withreflux times greater than one second in duration. Superficial venousinsufficiency is present in the small saphenous vein, with reflux times>0.5 seconds in duration. Small saphenous vein vessel diameter is 1.7mm.The sapheno-popliteal junction is not visualized. Duplex scan of the left lower extremity demonstrates no evidence of venousvalvular incompetency. There is no evidence of deep venous thrombosis. There is no evidence of deep venous thrombosis bilaterally. Indications Swelling of Limb [M79.89]. History of bilateral lower extremity swelling and heaviness Findings: Right Competency Reflux Time (sec) Diameter AP (mm) Compressibility Common Femoral Vein Reflux 1.00 Complete Proximal femoral vein Complete Mid femoral vein Competent Complete Distal femoral vein Complete Popliteal Competent Complete Sapheno Femoral Junction Competent 5.00 Complete Great Saphenous Vein -Thigh Proximal Competent 4.20 Complete Great Saphenous Vein -Thigh Mid Competent Great Saphenous Vein -Thigh Distal Competent Great Saphenous Vein -Knee Competent 3.30 Sapheno Popliteal Junction N/A Small Saphenous Vein -Calf Proximal Reflux 2.00 1.60 Complete Small Saphenous Vein -Calf Mid Reflux 1.40 1.70 Left Competency Compressibility Common Femoral Vein Competent Complete Proximal femoral vein Complete Mid femoral vein Competent Complete Distal femoral vein Complete Popliteal Competent Complete Sapheno Femoral Junction Competent Complete Great Saphenous Vein -Thigh Proximal Competent Complete Great Saphenous Vein -Thigh Mid Competent Great Saphenous Vein -Thigh Distal Competent Great Saphenous Vein -Knee Competent Small Saphenous Vein -Calf Proximal Competent Complete Electronically Signed by: Brenda Salazar MD, RPVI on 2025-08-12 02:18:59PM End of Report Shawna Garcia PA-C VASCULAR LAB ORDERABLES Final Result * (ABNORMAL) Lipid Panel Reflex Direct LDL (08/05/2025 1:19 PM EST) Cholesterol, Total 92 <200 mg/dL [facility] Cholesterol, HDL 44(L) > OR = 50 mg/dL [facility] Triglycerides 150(H) <150 mg/dL [facility] LDL Cholesterol 25 mg/dL (calc) [facility] Comment: Reference range: <100 Desirable range <100 mg/dL for primary prevention; <70 mg/dL for patients with CHD or diabetic patients with > or = 2 CHD risk factors. LDL-C is now calculated using the Honorio calculation, which is a validated novel method providing better accuracy than the Friedewald equation in the estimation of LDL-C. Sony REDDY et al. PARAS. 2013;310(19): 8645-6293 (http://education.[employer]/faq/EUQ231) Cholesterol/HDL Ratio 2.1 <5.0 (calc) [facility] Non HDL Chol. (LDL+VLDL) 48 <130 mg/dL (calc) [facility] Comment: For patients with diabetes plus 1 major ASCVD risk factor, treating to a non-HDL-C goal of <100 mg/dL (LDL-C of <70 mg/dL) is considered a therapeutic option. Blood Blood specimen / Unknown 08/05/2025 1:19 PM EST 08/05/2025 1:20 PM EST Narrative [facility] - 08/11/2025 9:23 AM EST FASTING:NO FASTING: NO Harley Ly MD LAB BLOOD ORDERABLES Farzaneh l Result Performing Organization Address [facility] de Phone Number Lost My Name [address] [place] [phone] * Lipoprotein (a) (08/05/2025 1:19 PM EST) Pathologist [facility] Lipoprotein (a) <10 <75 nmol/L [facility] Comment: Risk Category Optimal < 75 nmol/L Moderate 75 - 125 nmol/L High > 125 nmol/L Cardiovascular event risk category cut points (optimal, moderate, high) are based on Cherelle Smith [facility] 2017;69:[id number]. Blood Blood specimen / Unknown 08/05/2025 1:19 PM EST 08/05/2025 1:20 PM EST Narrative [facility] - 08/11/2025 9:23 AM EST FASTING:NO FASTING: NO Harley Ly MD LAB BLOOD ORDERABLES Farazneh l Result Performing Organization Address [facility] de Phone Number [facility] [id number] [address] [address] [place] [address] * TSH, HIGHLY SENSITIVE (08/05/2025 1:19 PM EST) Pathologist [facility] TSH, Highly Sensitive 1.37 0.40 - 4.50 mIU/L [facility] Blood Blood specimen / Unknown 08/05/2025 1:19 PM EST 08/05/2025 1:20 PM EST Narrative [facility] - 08/11/2025 9:23 AM EST FASTING:NO FASTING: NO us Harley Ly MD LAB BLOOD ORDERABLES Farzaneh tovar Result Lost My Name [address] [place] [phone] * (ABNORMAL) Comprehensive Metabolic Panel (08/05/2025 1:19 PM EST) Glucose 195(H) 65 - 139 mg/dL [facility] Comment: Non-fasting reference interval Blood Urea Nitrogen (BUN) 22 7 - 25 mg/dL [facility] Creatinine 1.30(H) 0.60 - 1.00 mg/dL [facility] Creatinine w/ eGFR 44(L) > OR = 60 mL/min/1. 73m2 [facility] BUN/Creatinine Ratio 17 6 - 22 (calc) [facility] Sodium 141 135 - 146 mmol/L [facility] Potassium 4.6 3.5 - 5.3 mmol/L [facility] Chloride 104 98 - 110 mmol/L [facility] CO2 28 20 - 32 mmol/L [facility] Calcium 9.2 8.6 - 10.4 mg/dL [facility] Protein, Total 5.6(L) 6.1 - 8.1 g/dL [facility] Albumin 3.8 3.6 - 5.1 g/dL [facility] Globulin 1.8(L) 1.9 - 3.7 g/dL (calc) [facility] Albumin/Globulin Ratio 2.1 1.0 - 2.5 (calc) [facility] Bilirubin, Total 0.4 0.2 - 1.2 mg/dL [facility] Alkaline Phosphatase 78 37 - 153 U/L [facility] Aspartate Aminotrans (AST) 24 10 - 35 U/L [facility] Alanine Aminotrans (ALT) 22 6 - 29 U/L [facility] Blood Blood specimen / Unknown 08/05/2025 1:19 PM EST 08/05/2025 1:20 PM EST Narrative [facility] - 08/11/2025 9:23 AM EST FASTING:NO FASTING: NO us Harley Ly MD LAB BLOOD ORDERABLES Farzaneh tovar Result [facility] [address] [place] [phone] * MR SPINE - THORACIC WITHOUT CONTRAST (07/30/2025 12:12 PM EDT) Anatomical Region Laterality Modality Other 07/30/2025 12:3 0 PM EDT 07/30/2025 12:30 PM EDT Narrative 08/09/2025 9:31 AM EST EXAMINATION: MR SPINE - CERVICAL WITHOUT CONTRAST (accession [id number]), MR SPINE - THORACIC WITHOUT CONTRAST (accession [id number]), MR SPINE - LUMBAR WITHOUT CONTRAST (accession [id number]) CLINICAL INDICATION: Myelopathy TECHNIQUE: MR of the cervical spine, thoracic spine, and lumbar spine without contrast. COMPARISON: None. CERVICAL SPINE: Alignment: There is straightening of the normal cervical lordosis. No spondylolisthesis. Vertebrae: Vertebral body heights are maintained. Marrow signal: No suspicious bone marrow signal abnormality. Paraspinous Soft Tissues: No prevertebral soft tissue edema. Posterior soft tissues are unremarkable. Intervertebral discs: There is degenerative disc desiccation with height loss seen at C5-6 and C6-C7. Cervical Cord: Normal in caliber and signal characteristics. Disc levels: C2-C3: There is no significant spinal canal or neural foraminal stenosis. C3-C4: There is a broad-based posterior disc osteophyte complex without evidence of any significant spinal canal stenosis. Uncovertebral and facet hypertrophy causes severe right and moderate left neural foraminal stenosis. C4-C5: There is a small disc bulge without evidence of any significant spinal canal stenosis. Uncovertebral and facet hypertrophy causes mild bilateral neural foraminal narrowing. C5-C6: There is a broad-based posterior disc osteophyte complex and ligamentum flavum thickening causing mild narrowing of the spinal canal. Uncovertebral and facet hypertrophy results in severe bilateral neural foraminal stenosis. C6-C7: There is a broad-based posterior disc osteophyte complex and ligamentum flavum thickening causing moderate narrowing of the spinal canal. Uncovertebral and facet hypertrophy results in severe bilateral neural foraminal stenosis. C7-T1: There is no significant spinal canal stenosis. There is moderate right neural foraminal narrowing. THORACIC SPINE: There is no evidence of acute fracture or traumatic subluxation. The vertebral body heights are maintained. There is preservation of the usual thoracic kyphosis. Alignment is otherwise anatomic. There is no focal suspicious bone marrow signal or edema. The paraspinal musculature appears normal. The thoracic spinal cord is normal in signal and caliber. T3-T4: There is a small disc bulge and facet arthropathy. There is no significant spinal canal stenosis. There is mild neural foraminal narrowing. T4-T5: There is a small disc bulge and ligamentum flavum thickening. There is no significant spinal canal stenosis. There is severe left and moderate right neural foraminal stenosis. T5-T6: There is a small disc bulge. There is no significant spinal canal stenosis. There is severe right and mild left neural foraminal stenosis. T6-T7: There is no significant spinal canal stenosis. There is severe left and mild right neural foraminal stenosis. T7-T8: There is a small disc bulge. There is no significant spinal canal stenosis. There is severe right and moderate left neural foraminal stenosis. T8-T9: There is a small disc bulge and ligamentum flavum thickening. There is no significant spinal canal stenosis. There is severe neural foraminal. T9-T10: There is a small disc bulge and ligamentum flavum thickening causing mild narrowing of the spinal canal. There is severe bilateral neural foraminal stenosis. T10-T11: There is a disc bulge, ligament flavum thickening and epidural lipomatosis resulting in moderate spinal canal stenosis. There is severe neural foraminal narrowing. T11-T12: There is a disc bulge with a right paracentral protrusion, ligamentous thickening and facet arthropathy causing moderate narrowing of the spinal canal. There is severe bilateral neural foraminal stenosis. T12-L1: There is a disc bulge eccentric to the right and bilateral facet arthropathy. There is mild narrowing of the spinal canal. There is moderate right and mild left neural foraminal stenosis. LUMBAR SPINE: Alignment: Straightening of the normal lumbar lordosis. There is grade 1 anterolisthesis of L2 on L3. Vertebral body heights: Vertebral body heights are maintained. Bones and Marrow: No suspicious bone marrow signal abnormality. Disc height and signal: There is severe degenerative disc desiccation and height loss at L3-4, L4-5, and L5-S1. Conus/Intrathecal: The distal cord is normal in size and signal characteristics. The cord terminates at L1. Paraspinous Soft Tissues: Unremarkable. Disc levels: L1-L2:There is a disc bulge and facet arthropathy. There is effacement of the subarticular recess bilaterally but otherwise no significant spinal canal stenosis status post decompression. There is severe neural foraminal narrowing. L2-L3:There is grade 1 anterolisthesis. There is a broad-based disc bulge, ligamentum flavum thickening and facet arthropathy. There is effacement of the subarticular recess bilaterally and moderate narrowing of the spinal canal status post decompression. There is severe neural foraminal narrowing. L3-L4:There is a broad-based posterior disc osteophyte complex and facet arthropathy. There is effacement of the severity of the recess bilaterally but otherwise no significant spinal canal stenosis status post decompression. There is severe bilateral neural foraminal narrowing. L4-L5:There is a broad-based posterior disc bulge eccentric to the left and bilateral facet arthropathy. There is effacement of the supratentorial recess bilaterally but otherwise only mild narrowing of the spinal canal status post decompression. There is severe neural foraminal narrowing. L5-S1:There is a broad-based disc bulge with a left paracentral annular fissure, ligament thickening and facet arthropathy. There is effacement of the subarticular recess bilaterally and mild narrowing of the spinal canal. There is severe neural foraminal narrowing. Simple-appearing cyst seen in the right kidney for which no follow-up is indicated. Stable nodule is seen in the right adrenal gland. IMPRESSION: Multilevel degenerative changes are seen in the cervical, thoracic, and lumbar spine as detailed by level above. Electronically signed by: Robbin Aleman MD 08/09/2025 09:31 AM [facility] Thank you for referring your patient to us, Robbin Aleman MD [phone] (Electronically Signed - 08/09/2025 09:31) Copy: KATIE RIZVI PA-C [address] [address] [phone] PATIENT , Procedure Note Robbin Aleman MD - 08/09/2025 EXAMINATION: MR SPINE - CERVICAL WITHOUT CONTRAST (accession [id number]), MR SPINE - THORACIC WITHOUT CONTRAST (accession [id number]), MR SPINE - LUMBARWITHOUT CONTRAST (accession [id number]) CLINICAL INDICATION: Myelopathy TECHNIQUE: MR of the cervical spine, thoracic spine, and lumbar spinewithout contrast. COMPARISON: None. CERVICAL SPINE: Alignment: There is straightening of the normal cervical lordosis. Nospondylolisthesis. Vertebrae: Vertebral body heights are maintained. Marrow signal: No suspicious bone marrow signal abnormality. Paraspinous Soft Tissues: No prevertebral soft tissue edema. Posteriorsoft tissues are unremarkable. Intervertebral discs: There is degenerative disc desiccation with heightloss seen at C5-6 and C6-C7. Cervical Cord: Normal in caliber and signal characteristics. Disc levels: C2-C3: There is no significant spinal canal or neural foraminal stenosis. C3-C4: There is a broad-based posterior disc osteophyte complex withoutevidence of any significant spinal canal stenosis. Uncovertebral and facethypertrophy causes severe right and moderate left neural foraminalstenosis. C4-C5: There is a small disc bulge without evidence of any significantspinal canal stenosis. Uncovertebral and facet hypertrophy causes mildbilateral neural foraminal narrowing. C5-C6: There is a broad-based posterior disc osteophyte complex andligamentum flavum thickening causing mild narrowing of the spinal canal.Uncovertebral and facet hypertrophy results in severe bilateral neuralforaminal stenosis. C6-C7: There is a broad-based posterior disc osteophyte complex andligamentum flavum thickening causing moderate narrowing of the spinalcanal. Uncovertebral and facet hypertrophy results in severe bilateralneural foraminal stenosis. C7-T1: There is no significant spinal canal stenosis. There is moderateright neural foraminal narrowing. THORACIC SPINE: There is no evidence of acute fracture or traumatic subluxation. Thevertebral body heights are maintained. There is preservation of the usualthoracic kyphosis. Alignment is otherwise anatomic. There is no focalsuspicious bone marrow signal or edema. The paraspinal musculature appears normal. The thoracic spinal cord is normal in signal and caliber. T3-T4: There is a small disc bulge and facet arthropathy. There is nosignificant spinal canal stenosis. There is mild neural foraminalnarrowing. T4-T5: There is a small disc bulge and ligamentum flavum thickening. Thereis no significant spinal canal stenosis. There is severe left and moderateright neural foraminal stenosis. T5-T6: There is a small disc bulge. There is no significant spinal canalstenosis. There is severe right and mild left neural foraminal stenosis. T6-T7: There is no significant spinal canal stenosis. There is severe leftand mild right neural foraminal stenosis. T7-T8: There is a small disc bulge. There is no significant spinal canalstenosis. There is severe right and moderate left neural foraminalstenosis. T8-T9: There is a small disc bulge and ligamentum flavum thickening. Thereis no significant spinal canal stenosis. There is severe neuralforaminal. T9-T10: There is a small disc bulge and ligamentum flavum thickeningcausing mild narrowing of the spinal canal. There is severe bilateralneural foraminal stenosis. T10-T11: There is a disc bulge, ligament flavum thickening and epidurallipomatosis resulting in moderate spinal canal stenosis. There is severeneural foraminal narrowing. T11-T12: There is a disc bulge with a right paracentral protrusion,ligamentous thickening and facet arthropathy causing moderate narrowing ofthe spinal canal. There is severe bilateral neural foraminal stenosis. T12-L1: There is a disc bulge eccentric to the right and bilateral facetarthropathy. There is mild narrowing of the spinal canal. There ismoderate right and mild left neural foraminal stenosis. LUMBAR SPINE: Alignment: Straightening of the normal lumbar lordosis. There is grade 1anterolisthesis of L2 on L3. Vertebral body heights: Vertebral body heights are maintained. Bones and Marrow: No suspicious bone marrow signal abnormality. Disc height and signal: There is severe degenerative disc desiccation andheight loss at L3-4, L4-5, and L5-S1. Conus/Intrathecal: The distal cord is normal in size and signalcharacteristics. The cord terminates at L1. Paraspinous Soft Tissues: Unremarkable. Disc levels: L1-L2:There is a disc bulge and facet arthropathy. There is effacement ofthe subarticular recess bilaterally but otherwise no significant spinalcanal stenosis status post decompression. There is severe neural foraminalnarrowing. L2-L3:There is grade 1 anterolisthesis. There is a broad-based disc bulge,ligamentum flavum thickening and facet arthropathy. There is effacement ofthe subarticular recess bilaterally and moderate narrowing of the spinalcanal status post decompression. There is severe neural foraminal narrowing. L3-L4:There is a broad-based posterior disc osteophyte complex and facetarthropathy. There is effacement of the severity of the recess bilaterallybut otherwise no significant spinal canal stenosis status postdecompression. There is severe bilateral neural foraminal narrowing. L4-L5:There is a broad-based posterior disc bulge eccentric to the leftand bilateral facet arthropathy. There is effacement of the supratentorialrecess bilaterally but otherwise only mild narrowing of the spinal canalstatus post decompression. There is severe neural foraminal narrowing. L5-S1:There is a broad-based disc bulge with a left paracentral annularfissure, ligament thickening and facet arthropathy. There is effacement ofthe subarticular recess bilaterally and mild narrowing of the spinalcanal. There is severe neural foraminal narrowing. Simple-appearing cyst seen in the right kidney for which no follow-up isindicated. Stable nodule is seen in the right adrenal gland. IMPRESSION: Multilevel degenerative changes are seen in the cervical, thoracic, andlumbar spine as detailed by level above. Electronically signed by: Robbin Aleman MD 08/09/2025 09:31 AM EST RPWorkstation: [id number] Thank you for referring your patient to us, Robbin Aleman MD [phone] (Electronically Signed - 08/09/2025 09:31) Copy: KATIE RIZVI PA-C [address] [id number] PATIENT , us Nat Bolanos NP IMG LEGACY PROCEDURES Final R esult * MR SPINE - LUMBAR WITHOUT CONTRAST (07/30/2025 12:12 PM EDT) Anatomical Region Laterality Modality Other 07/30/2025 11:3 0 AM EDT 07/30/2025 11:30 AM EDT Narrative 08/09/2025 9:31 AM EST EXAMINATION: MR SPINE - CERVICAL WITHOUT CONTRAST (accession [id number]), MR SPINE - THORACIC WITHOUT CONTRAST (accession [id number]), MR SPINE - LUMBAR WITHOUT CONTRAST (accession [id number]) CLINICAL INDICATION: Myelopathy TECHNIQUE: MR of the cervical spine, thoracic spine, and lumbar spine without contrast. COMPARISON: None. CERVICAL SPINE: Alignment: There is straightening of the normal cervical lordosis. No spondylolisthesis. Vertebrae: Vertebral body heights are maintained. Marrow signal: No suspicious bone marrow signal abnormality. Paraspinous Soft Tissues: No prevertebral soft tissue edema. Posterior soft tissues are unremarkable. Intervertebral discs: There is degenerative disc desiccation with height loss seen at C5-6 and C6-C7. Cervical Cord: Normal in caliber and signal characteristics. Disc levels: C2-C3: There is no significant spinal canal or neural foraminal stenosis. C3-C4: There is a broad-based posterior disc osteophyte complex without evidence of any significant spinal canal stenosis. Uncovertebral and facet hypertrophy causes severe right and moderate left neural foraminal stenosis. C4-C5: There is a small disc bulge without evidence of any significant spinal canal stenosis. Uncovertebral and facet hypertrophy causes mild bilateral neural foraminal narrowing. C5-C6: There is a broad-based posterior disc osteophyte complex and ligamentum flavum thickening causing mild narrowing of the spinal canal. Uncovertebral and facet hypertrophy results in severe bilateral neural foraminal stenosis. C6-C7: There is a broad-based posterior disc osteophyte complex and ligamentum flavum thickening causing moderate narrowing of the spinal canal. Uncovertebral and facet hypertrophy results in severe bilateral neural foraminal stenosis. C7-T1: There is no significant spinal canal stenosis. There is moderate right neural foraminal narrowing. THORACIC SPINE: There is no evidence of acute fracture or traumatic subluxation. The vertebral body heights are maintained. There is preservation of the usual thoracic kyphosis. Alignment is otherwise anatomic. There is no focal suspicious bone marrow signal or edema. The paraspinal musculature appears normal. The thoracic spinal cord is normal in signal and caliber. T3-T4: There is a small disc bulge and facet arthropathy. There is no significant spinal canal stenosis. There is mild neural foraminal narrowing. T4-T5: There is a small disc bulge and ligamentum flavum thickening. There is no significant spinal canal stenosis. There is severe left and moderate right neural foraminal stenosis. T5-T6: There is a small disc bulge. There is no significant spinal canal stenosis. There is severe right and mild left neural foraminal stenosis. T6-T7: There is no significant spinal canal stenosis. There is severe left and mild right neural foraminal stenosis. T7-T8: There is a small disc bulge. There is no significant spinal canal stenosis. There is severe right and moderate left neural foraminal stenosis. T8-T9: There is a small disc bulge and ligamentum flavum thickening. There is no significant spinal canal stenosis. There is severe neural foraminal. T9-T10: There is a small disc bulge and ligamentum flavum thickening causing mild narrowing of the spinal canal. There is severe bilateral neural foraminal stenosis. T10-T11: There is a disc bulge, ligament flavum thickening and epidural lipomatosis resulting in moderate spinal canal stenosis. There is severe neural foraminal narrowing. T11-T12: There is a disc bulge with a right paracentral protrusion, ligamentous thickening and facet arthropathy causing moderate narrowing of the spinal canal. There is severe bilateral neural foraminal stenosis. T12-L1: There is a disc bulge eccentric to the right and bilateral facet arthropathy. There is mild narrowing of the spinal canal. There is moderate right and mild left neural foraminal stenosis. LUMBAR SPINE: Alignment: Straightening of the normal lumbar lordosis. There is grade 1 anterolisthesis of L2 on L3. Vertebral body heights: Vertebral body heights are maintained. Bones and Marrow: No suspicious bone marrow signal abnormality. Disc height and signal: There is severe degenerative disc desiccation and height loss at L3-4, L4-5, and L5-S1. Conus/Intrathecal: The distal cord is normal in size and signal characteristics. The cord terminates at L1. Paraspinous Soft Tissues: Unremarkable. Disc levels: L1-L2:There is a disc bulge and facet arthropathy. There is effacement of the subarticular recess bilaterally but otherwise no significant spinal canal stenosis status post decompression. There is severe neural foraminal narrowing. L2-L3:There is grade 1 anterolisthesis. There is a broad-based disc bulge, ligamentum flavum thickening and facet arthropathy. There is effacement of the subarticular recess bilaterally and moderate narrowing of the spinal canal status post decompression. There is severe neural foraminal narrowing. L3-L4:There is a broad-based posterior disc osteophyte complex and facet arthropathy. There is effacement of the severity of the recess bilaterally but otherwise no significant spinal canal stenosis status post decompression. There is severe bilateral neural foraminal narrowing. L4-L5:There is a broad-based posterior disc bulge eccentric to the left and bilateral facet arthropathy. There is effacement of the supratentorial recess bilaterally but otherwise only mild narrowing of the spinal canal status post decompression. There is severe neural foraminal narrowing. L5-S1:There is a broad-based disc bulge with a left paracentral annular fissure, ligament thickening and facet arthropathy. There is effacement of the subarticular recess bilaterally and mild narrowing of the spinal canal. There is severe neural foraminal narrowing. Simple-appearing cyst seen in the right kidney for which no follow-up is indicated. Stable nodule is seen in the right adrenal gland. IMPRESSION: Multilevel degenerative changes are seen in the cervical, thoracic, and lumbar spine as detailed by level above. Electronically signed by: Robbin Aleman MD 08/09/2025 09:31 AM [facility] Thank you for referring your patient to us, Robbin Aleman MD [phone] (Electronically Signed - 08/09/2025 09:31) Copy: KATIE RIZVI PA-C [address] [address] PATIENT , Procedure Note Robbin Aleman MD - 08/09/2025 EXAMINATION: MR SPINE - CERVICAL WITHOUT CONTRAST (accession [id number]), MR SPINE - THORACIC WITHOUT CONTRAST (accession [id number]), MR SPINE - LUMBARWITHOUT CONTRAST (accession [id number]) CLINICAL INDICATION: Myelopathy TECHNIQUE: MR of the cervical spine, thoracic spine, and lumbar spinewithout contrast. COMPARISON: None. CERVICAL SPINE: Alignment: There is straightening of the normal cervical lordosis. Nospondylolisthesis. Vertebrae: Vertebral body heights are maintained. Marrow signal: No suspicious bone marrow signal abnormality. Paraspinous Soft Tissues: No prevertebral soft tissue edema. Posteriorsoft tissues are unremarkable. Intervertebral discs: There is degenerative disc desiccation with heightloss seen at C5-6 and C6-C7. Cervical Cord: Normal in caliber and signal characteristics. Disc levels: C2-C3: There is no significant spinal canal or neural foraminal stenosis. C3-C4: There is a broad-based posterior disc osteophyte complex withoutevidence of any significant spinal canal stenosis. Uncovertebral and facethypertrophy causes severe right and moderate left neural foraminalstenosis. C4-C5: There is a small disc bulge without evidence of any significantspinal canal stenosis. Uncovertebral and facet hypertrophy causes mildbilateral neural foraminal narrowing. C5-C6: There is a broad-based posterior disc osteophyte complex andligamentum flavum thickening causing mild narrowing of the spinal canal.Uncovertebral and facet hypertrophy results in severe bilateral neuralforaminal stenosis. C6-C7: There is a broad-based posterior disc osteophyte complex andligamentum flavum thickening causing moderate narrowing of the spinalcanal. Uncovertebral and facet hypertrophy results in severe bilateralneural foraminal stenosis. C7-T1: There is no significant spinal canal stenosis. There is moderateright neural foraminal narrowing. THORACIC SPINE: There is no evidence of acute fracture or traumatic subluxation. Thevertebral body heights are maintained. There is preservation of the usualthoracic kyphosis. Alignment is otherwise anatomic. There is no focalsuspicious bone marrow signal or edema. The paraspinal musculature appears normal. The thoracic spinal cord is normal in signal and caliber. T3-T4: There is a small disc bulge and facet arthropathy. There is nosignificant spinal canal stenosis. There is mild neural foraminalnarrowing. T4-T5: There is a small disc bulge and ligamentum flavum thickening. Thereis no significant spinal canal stenosis. There is severe left and moderateright neural foraminal stenosis. T5-T6: There is a small disc bulge. There is no significant spinal canalstenosis. There is severe right and mild left neural foraminal stenosis. T6-T7: There is no significant spinal canal stenosis. There is severe leftand mild right neural foraminal stenosis. T7-T8: There is a small disc bulge. There is no significant spinal canalstenosis. There is severe right and moderate left neural foraminalstenosis. T8-T9: There is a small disc bulge and ligamentum flavum thickening. Thereis no significant spinal canal stenosis. There is severe neuralforaminal. T9-T10: There is a small disc bulge and ligamentum flavum thickeningcausing mild narrowing of the spinal canal. There is severe bilateralneural foraminal stenosis. T10-T11: There is a disc bulge, ligament flavum thickening and epidurallipomatosis resulting in moderate spinal canal stenosis. There is severeneural foraminal narrowing. T11-T12: There is a disc bulge with a right paracentral protrusion,ligamentous thickening and facet arthropathy causing moderate narrowing ofthe spinal canal. There is severe bilateral neural foraminal stenosis. T12-L1: There is a disc bulge eccentric to the right and bilateral facetarthropathy. There is mild narrowing of the spinal canal. There ismoderate right and mild left neural foraminal stenosis. LUMBAR SPINE: Alignment: Straightening of the normal lumbar lordosis. There is grade 1anterolisthesis of L2 on L3. Vertebral body heights: Vertebral body heights are maintained. Bones and Marrow: No suspicious bone marrow signal abnormality. Disc height and signal: There is severe degenerative disc desiccation andheight loss at L3-4, L4-5, and L5-S1. Conus/Intrathecal: The distal cord is normal in size and signalcharacteristics. The cord terminates at L1. Paraspinous Soft Tissues: Unremarkable. Disc levels: L1-L2:There is a disc bulge and facet arthropathy. There is effacement ofthe subarticular recess bilaterally but otherwise no significant spinalcanal stenosis status post decompression. There is severe neural foraminalnarrowing. L2-L3:There is grade 1 anterolisthesis. There is a broad-based disc bulge,ligamentum flavum thickening and facet arthropathy. There is effacement ofthe subarticular recess bilaterally and moderate narrowing of the spinalcanal status post decompression. There is severe neural foraminal narrowing. L3-L4:There is a broad-based posterior disc osteophyte complex and facetarthropathy. There is effacement of the severity of the recess bilaterallybut otherwise no significant spinal canal stenosis status postdecompression. There is severe bilateral neural foraminal narrowing. L4-L5:There is a broad-based posterior disc bulge eccentric to the leftand bilateral facet arthropathy. There is effacement of the supratentorialrecess bilaterally but otherwise only mild narrowing of the spinal canalstatus post decompression. There is severe neural foraminal narrowing. L5-S1:There is a broad-based disc bulge with a left paracentral annularfissure, ligament thickening and facet arthropathy. There is effacement ofthe subarticular recess bilaterally and mild narrowing of the spinalcanal. There is severe neural foraminal narrowing. Simple-appearing cyst seen in the right kidney for which no follow-up isindicated. Stable nodule is seen in the right adrenal gland. IMPRESSION: Multilevel degenerative changes are seen in the cervical, thoracic, andlumbar spine as detailed by level above. Electronically signed by: Robbin Aleman MD 08/09/2025 09:31 AM EST RPWorkstation: [id number] Thank you for referring your patient to us, Robbin Aleman MD [phone] (Electronically Signed - 08/09/2025 09:31) Copy: KATIE RIZVI PA-C [facility] [address] [place] [address] PATIENT , us Nat Bolanos NP IMG LEGACY PROCEDURES Final R esult * MR SPINE - CERVICAL WITHOUT CONTRAST (07/30/2025 12:12 PM EDT) Anatomical Region Laterality Modality Other 07/30/2025 12:0 0 PM EDT 07/30/2025 12:00 PM EDT Narrative 08/09/2025 9:31 AM EST EXAMINATION: MR SPINE - CERVICAL WITHOUT CONTRAST (accession [id number]), MR SPINE - THORACIC WITHOUT CONTRAST (accession [id number]), MR SPINE - LUMBAR WITHOUT CONTRAST (accession [id number]) CLINICAL INDICATION: Myelopathy TECHNIQUE: MR of the cervical spine, thoracic spine, and lumbar spine without contrast. COMPARISON: None. CERVICAL SPINE: Alignment: There is straightening of the normal cervical lordosis. No spondylolisthesis. Vertebrae: Vertebral body heights are maintained. Marrow signal: No suspicious bone marrow signal abnormality. Paraspinous Soft Tissues: No prevertebral soft tissue edema. Posterior soft tissues are unremarkable. Intervertebral discs: There is degenerative disc desiccation with height loss seen at C5-6 and C6-C7. Cervical Cord: Normal in caliber and signal characteristics. Disc levels: C2-C3: There is no significant spinal canal or neural foraminal stenosis. C3-C4: There is a broad-based posterior disc osteophyte complex without evidence of any significant spinal canal stenosis. Uncovertebral and facet hypertrophy causes severe right and moderate left neural foraminal stenosis. C4-C5: There is a small disc bulge without evidence of any significant spinal canal stenosis. Uncovertebral and facet hypertrophy causes mild bilateral neural foraminal narrowing. C5-C6: There is a broad-based posterior disc osteophyte complex and ligamentum flavum thickening causing mild narrowing of the spinal canal. Uncovertebral and facet hypertrophy results in severe bilateral neural foraminal stenosis. C6-C7: There is a broad-based posterior disc osteophyte complex and ligamentum flavum thickening causing moderate narrowing of the spinal canal. Uncovertebral and facet hypertrophy results in severe bilateral neural foraminal stenosis. C7-T1: There is no significant spinal canal stenosis. There is moderate right neural foraminal narrowing. THORACIC SPINE: There is no evidence of acute fracture or traumatic subluxation. The vertebral body heights are maintained. There is preservation of the usual thoracic kyphosis. Alignment is otherwise anatomic. There is no focal suspicious bone marrow signal or edema. The paraspinal musculature appears normal. The thoracic spinal cord is normal in signal and caliber. T3-T4: There is a small disc bulge and facet arthropathy. There is no significant spinal canal stenosis. There is mild neural foraminal narrowing. T4-T5: There is a small disc bulge and ligamentum flavum thickening. There is no significant spinal canal stenosis. There is severe left and moderate right neural foraminal stenosis. T5-T6: There is a small disc bulge. There is no significant spinal canal stenosis. There is severe right and mild left neural foraminal stenosis. T6-T7: There is no significant spinal canal stenosis. There is severe left and mild right neural foraminal stenosis. T7-T8: There is a small disc bulge. There is no significant spinal canal stenosis. There is severe right and moderate left neural foraminal stenosis. T8-T9: There is a small disc bulge and ligamentum flavum thickening. There is no significant spinal canal stenosis. There is severe neural foraminal. T9-T10: There is a small disc bulge and ligamentum flavum thickening causing mild narrowing of the spinal canal. There is severe bilateral neural foraminal stenosis. T10-T11: There is a disc bulge, ligament flavum thickening and epidural lipomatosis resulting in moderate spinal canal stenosis. There is severe neural foraminal narrowing. T11-T12: There is a disc bulge with a right paracentral protrusion, ligamentous thickening and facet arthropathy causing moderate narrowing of the spinal canal. There is severe bilateral neural foraminal stenosis. T12-L1: There is a disc bulge eccentric to the right and bilateral facet arthropathy. There is mild narrowing of the spinal canal. There is moderate right and mild left neural foraminal stenosis. LUMBAR SPINE: Alignment: Straightening of the normal lumbar lordosis. There is grade 1 anterolisthesis of L2 on L3. Vertebral body heights: Vertebral body heights are maintained. Bones and Marrow: No suspicious bone marrow signal abnormality. Disc height and signal: There is severe degenerative disc desiccation and height loss at L3-4, L4-5, and L5-S1. Conus/Intrathecal: The distal cord is normal in size and signal characteristics. The cord terminates at L1. Paraspinous Soft Tissues: Unremarkable. Disc levels: L1-L2:There is a disc bulge and facet arthropathy. There is effacement of the subarticular recess bilaterally but otherwise no significant spinal canal stenosis status post decompression. There is severe neural foraminal narrowing. L2-L3:There is grade 1 anterolisthesis. There is a broad-based disc bulge, ligamentum flavum thickening and facet arthropathy. There is effacement of the subarticular recess bilaterally and moderate narrowing of the spinal canal status post decompression. There is severe neural foraminal narrowing. L3-L4:There is a broad-based posterior disc osteophyte complex and facet arthropathy. There is effacement of the severity of the recess bilaterally but otherwise no significant spinal canal stenosis status post decompression. There is severe bilateral neural foraminal narrowing. L4-L5:There is a broad-based posterior disc bulge eccentric to the left and bilateral facet arthropathy. There is effacement of the supratentorial recess bilaterally but otherwise only mild narrowing of the spinal canal status post decompression. There is severe neural foraminal narrowing. L5-S1:There is a broad-based disc bulge with a left paracentral annular fissure, ligament thickening and facet arthropathy. There is effacement of the subarticular recess bilaterally and mild narrowing of the spinal canal. There is severe neural foraminal narrowing. Simple-appearing cyst seen in the right kidney for which no follow-up is indicated. Stable nodule is seen in the right adrenal gland. IMPRESSION: Multilevel degenerative changes are seen in the cervical, thoracic, and lumbar spine as detailed by level above. Electronically signed by: Robbin Aleman MD 08/09/2025 09:31 AM [facility] Thank you for referring your patient to us, Robbin Aleman MD [phone] (Electronically Signed - 08/09/2025 09:31) Copy: KATIE RIZVI PA-C [address] [id number] PATIENT , Procedure Note Robbin Aleman MD - 08/09/2025 EXAMINATION: MR SPINE - CERVICAL WITHOUT CONTRAST (accession [id number]), MR SPINE - THORACIC WITHOUT CONTRAST (accession [id number]), MR SPINE - LUMBARWITHOUT CONTRAST (accession [id number]) CLINICAL INDICATION: Myelopathy TECHNIQUE: MR of the cervical spine, thoracic spine, and lumbar spinewithout contrast. COMPARISON: None. CERVICAL SPINE: Alignment: There is straightening of the normal cervical lordosis. Nospondylolisthesis. Vertebrae: Vertebral body heights are maintained. Marrow signal: No suspicious bone marrow signal abnormality. Paraspinous Soft Tissues: No prevertebral soft tissue edema. Posteriorsoft tissues are unremarkable. Intervertebral discs: There is degenerative disc desiccation with heightloss seen at C5-6 and C6-C7. Cervical Cord: Normal in caliber and signal characteristics. Disc levels: C2-C3: There is no significant spinal canal or neural foraminal stenosis. C3-C4: There is a broad-based posterior disc osteophyte complex withoutevidence of any significant spinal canal stenosis. Uncovertebral and facethypertrophy causes severe right and moderate left neural foraminalstenosis. C4-C5: There is a small disc bulge without evidence of any significantspinal canal stenosis. Uncovertebral and facet hypertrophy causes mildbilateral neural foraminal narrowing. C5-C6: There is a broad-based posterior disc osteophyte complex andligamentum flavum thickening causing mild narrowing of the spinal canal.Uncovertebral and facet hypertrophy results in severe bilateral neuralforaminal stenosis. C6-C7: There is a broad-based posterior disc osteophyte complex andligamentum flavum thickening causing moderate narrowing of the spinalcanal. Uncovertebral and facet hypertrophy results in severe bilateralneural foraminal stenosis. C7-T1: There is no significant spinal canal stenosis. There is moderateright neural foraminal narrowing. THORACIC SPINE: There is no evidence of acute fracture or traumatic subluxation. Thevertebral body heights are maintained. There is preservation of the usualthoracic kyphosis. Alignment is otherwise anatomic. There is no focalsuspicious bone marrow signal or edema. The paraspinal musculature appears normal. The thoracic spinal cord is normal in signal and caliber. T3-T4: There is a small disc bulge and facet arthropathy. There is nosignificant spinal canal stenosis. There is mild neural foraminalnarrowing. T4-T5: There is a small disc bulge and ligamentum flavum thickening. Thereis no significant spinal canal stenosis. There is severe left and moderateright neural foraminal stenosis. T5-T6: There is a small disc bulge. There is no significant spinal canalstenosis. There is severe right and mild left neural foraminal stenosis. T6-T7: There is no significant spinal canal stenosis. There is severe leftand mild right neural foraminal stenosis. T7-T8: There is a small disc bulge. There is no significant spinal canalstenosis. There is severe right and moderate left neural foraminalstenosis. T8-T9: There is a small disc bulge and ligamentum flavum thickening. Thereis no significant spinal canal stenosis. There is severe neuralforaminal. T9-T10: There is a small disc bulge and ligamentum flavum thickeningcausing mild narrowing of the spinal canal. There is severe bilateralneural foraminal stenosis. T10-T11: There is a disc bulge, ligament flavum thickening and epidurallipomatosis resulting in moderate spinal canal stenosis. There is severeneural foraminal narrowing. T11-T12: There is a disc bulge with a right paracentral protrusion,ligamentous thickening and facet arthropathy causing moderate narrowing ofthe spinal canal. There is severe bilateral neural foraminal stenosis. T12-L1: There is a disc bulge eccentric to the right and bilateral facetarthropathy. There is mild narrowing of the spinal canal. There ismoderate right and mild left neural foraminal stenosis. LUMBAR SPINE: Alignment: Straightening of the normal lumbar lordosis. There is grade 1anterolisthesis of L2 on L3. Vertebral body heights: Vertebral body heights are maintained. Bones and Marrow: No suspicious bone marrow signal abnormality. Disc height and signal: There is severe degenerative disc desiccation andheight loss at L3-4, L4-5, and L5-S1. Conus/Intrathecal: The distal cord is normal in size and signalcharacteristics. The cord terminates at L1. Paraspinous Soft Tissues: Unremarkable. Disc levels: L1-L2:There is a disc bulge and facet arthropathy. There is effacement ofthe subarticular recess bilaterally but otherwise no significant spinalcanal stenosis status post decompression. There is severe neural foraminalnarrowing. L2-L3:There is grade 1 anterolisthesis. There is a broad-based disc bulge,ligamentum flavum thickening and facet arthropathy. There is effacement ofthe subarticular recess bilaterally and moderate narrowing of the spinalcanal status post decompression. There is severe neural foraminal narrowing. L3-L4:There is a broad-based posterior disc osteophyte complex and facetarthropathy. There is effacement of the severity of the recess bilaterallybut otherwise no significant spinal canal stenosis status postdecompression. There is severe bilateral neural foraminal narrowing. L4-L5:There is a broad-based posterior disc bulge eccentric to the leftand bilateral facet arthropathy. There is effacement of the supratentorialrecess bilaterally but otherwise only mild narrowing of the spinal canalstatus post decompression. There is severe neural foraminal narrowing. L5-S1:There is a broad-based disc bulge with a left paracentral annularfissure, ligament thickening and facet arthropathy. There is effacement ofthe subarticular recess bilaterally and mild narrowing of the spinalcanal. There is severe neural foraminal narrowing. Simple-appearing cyst seen in the right kidney for which no follow-up isindicated. Stable nodule is seen in the right adrenal gland. IMPRESSION: Multilevel degenerative changes are seen in the cervical, thoracic, andlumbar spine as detailed by level above. Electronically signed by: Robbin Aleman MD 08/09/2025 09:31 AM EST RPWorkstation: [id number] Thank you for referring your patient to us, Robbin Aleman MD [phone] (Electronically Signed - 08/09/2025 09:31) Copy: KATIE RIZVI PA-C [facility] [address] [place] [address] PATIENT , us Nat Bolanos NP IMG LEGACY PROCEDURES Final R esult * MR LT SHOULDER WITHOUT CONTRAST (07/30/2025 11:01 AM EDT) Anatomical Region Laterality Modality Other 07/30/2025 11:0 0 AM EDT 07/30/2025 11:00 AM EDT Narrative 07/30/2025 2:50 PM EDT EXAMINATION: MR SHOULDER WITHOUT CONTRAST, LEFT CLINICAL INFORMATION: Left shoulder pain COMPARISON: None available. TECHNIQUE: No images acquired. Patient needs to be rescheduled at facility that can perform MARS imaging. FINDINGS: No imaging acquired. IMPRESSION: No imaging acquired. Patient needs to be rescheduled at facility that can perform MARS imaging. Electronically signed by: Du Boles MD 07/30/2025 02:50 PM EDT RP Thank you for referring your patient to us, Du Boles MD [phone] (Electronically Signed - 07/30/2025 14:50) Copy: [facility] [address] [place] [address] PATIENT , Procedure Note Du Boles MD - 07/30/2025 EXAMINATION: MR SHOULDER WITHOUT CONTRAST, LEFT CLINICAL INFORMATION: Left shoulder pain COMPARISON: None available. TECHNIQUE: No images acquired. Patient needs to be rescheduled at facility that canperform MARS imaging. FINDINGS: No imaging acquired. IMPRESSION: No imaging acquired. Patient needs to be rescheduled at facility that canperform MARS imaging. Electronically signed by: Du Boles MD 07/30/2025 02:50 PM EDT RPWorkstation: [id number] Thank you for referring your patient to us, Du Boles MD [phone] (Electronically Signed - 07/30/2025 14:50) Copy: [facility]VI [facility] [address] [place] [address] PATIENT , us Nat Bolanos NP IMG LEGACY PROCEDURES Final R esult * ECG 12 lead (07/14/2025 12:58 PM EDT) Pathologist [facility] Ventricular rate 94 BPM EKG [facility] Atrial rate 94 BPM EKG [facility] P-R interval 152 ms EKG [facility] QRS duration 80 ms EKG [facility] Q-T interval 366 ms EKG [facility] QTC calculation (Bazett) 457 ms EKG [facility] P axis 36 degrees EKG [facility] R axis -13 degrees EKG [facility] T axis 35 degrees EKG [facility] 07/14/2025 12:5 8 PM EDT Narrative EKG [facility] - 07/14/2025 1:49 PM EDT Normal sinus rhythm Possible Left atrial enlargement Borderline ECG Confirmed by MD Ly Joseph () on 07/14/2025 1:49:00 PM Procedure Note Harley Ly MD - 07/14/2025 Normal sinus rhythm Possible Left atrial enlargement Borderline ECG Confirmed by MD Ly Joseph () on 07/14/2025 1:49:00 PM us Harley Ly MD ECG ORDERABLES Final Res ult EKG [facility] * XR SPINE THORACIC 2 VIEWS (07/06/2025 11:33 AM EDT) Anatomical Region Laterality Modality Other 07/06/2025 11:3 0 AM EDT 07/06/2025 11:30 AM EDT Narrative 07/12/2025 1:27 PM EDT EXAMINATION: XR THORACIC SPINE CLINICAL INFORMATION: Mid back pain difficulty walking COMPARISON: None available. TECHNIQUE: 3 views of the thoracic spine were obtained. FINDINGS: Mild thoracic dextroscoliosis. Diffuse discogenic degenerative changes. No vertebral compression fracture. No acute abnormality. IMPRESSION: Mild thoracic dextroscoliosis. Diffuse discogenic degenerative changes. No vertebral compression fracture. No acute abnormality. Electronically signed by: Jersey Green MD 07/12/2025 01:27 PM EDT RP Thank you for referring your patient to us, Jersey Green MD [phone] (Electronically Signed - 07/12/2025 13:27) Procedure Note Jersey Green MD - 07/12/2025 EXAMINATION: XR THORACIC SPINE CLINICAL INFORMATION: Mid back pain difficulty walking COMPARISON: None available. TECHNIQUE: 3 views of the thoracic spine were obtained. FINDINGS: Mild thoracic dextroscoliosis. Diffuse discogenic degenerative changes. Novertebral compression fracture. No acute abnormality. IMPRESSION: Mild thoracic dextroscoliosis. Diffuse discogenic degenerative changes. Novertebral compression fracture. No acute abnormality. Electronically signed by: Jersey Green MD 07/12/2025 01:27 PM EDT RPWorkstation: [id number] Thank you for referring your patient to us, Jersey Green MD [phone] (Electronically Signed - 07/12/2025 13:27) us Nat Bolanos NP IMG LEGACY PROCEDURES Final R esult * XR SPINE LUMBOSACRAL 2/3 VIEWS (07/06/2025 11:31 AM EDT) Anatomical Region Laterality Modality Other 07/06/2025 11:1 5 AM EDT 07/06/2025 11:15 AM EDT Narrative 07/12/2025 1:26 PM EDT EXAMINATION: XR LUMBOSACRAL SPINE CLINICAL INFORMATION: Lower back pain COMPARISON: None available. TECHNIQUE: Three views of the lumbosacral spine. FINDINGS: Multilevel, multifactorial discogenic degenerative changes. Varying degrees of spinal stenosis. Mild lumbar levoscoliosis. Calcification of the visualized portion of the abdominal aorta. IMPRESSION: Multilevel, multifactorial discogenic degenerative changes. Varying degrees of spinal stenosis. Electronically signed by: Jersey Green MD 07/12/2025 01:26 PM EDT RP Thank you for referring your patient to us, Jersey Green MD [phone] (Electronically Signed - 07/12/2025 13:26) Procedure Note Jersey Green MD - 07/12/2025 EXAMINATION: XR LUMBOSACRAL SPINE CLINICAL INFORMATION: Lower back pain COMPARISON: None available. TECHNIQUE: Three views of the lumbosacral spine. FINDINGS: Multilevel, multifactorial discogenic degenerative changes. Varyingdegrees of spinal stenosis. Mild lumbar levoscoliosis. Calcification ofthe visualized portion of the abdominal aorta. IMPRESSION: Multilevel, multifactorial discogenic degenerative changes. Varyingdegrees of spinal stenosis. Electronically signed by: Jersey Green MD 07/12/2025 01:26 PM EDT RPWorkstation: [id number] Thank you for referring your patient to us, Jersey Green MD [phone] (Electronically Signed - 07/12/2025 13:26) us Nat Bolanos NP IMG LEGACY PROCEDURES Final R esult * XR SPINE CERVICAL 2/3 VIEWS (07/06/2025 11:30 AM EDT) Anatomical Region Laterality Modality Other 07/06/2025 11:0 0 AM EDT 07/06/2025 11:00 AM EDT Narrative 07/12/2025 1:26 PM EDT EXAMINATION: XR CERVICAL SPINE CLINICAL INFORMATION: Back pain COMPARISON: None available. TECHNIQUE: 3 views of the cervical spine were obtained. FINDINGS: Discogenic degenerative changes at C6-7. The remainder of the levels are unremarkable. The odontoid is intact. There is normal anatomic alignment. IMPRESSION: Discogenic degenerative changes at C6-7. Electronically signed by: Jersey Green MD 07/12/2025 01:26 PM EDT RP Thank you for referring your patient to us, Jersey Green MD [phone] (Electronically Signed - 07/12/2025 13:26) Copy: [facility]IZVI [facility] [address] [place] [address] Procedure Note Jersey Green MD - 07/12/2025 EXAMINATION: XR CERVICAL SPINE CLINICAL INFORMATION: Back pain COMPARISON: None available. TECHNIQUE: 3 views of the cervical spine were obtained. FINDINGS: Discogenic degenerative changes at C6-7. The remainder of the levels areunremarkable. The odontoid is intact. There is normal anatomic alignment. IMPRESSION: Discogenic degenerative changes at C6-7. Electronically signed by: Jersey Green MD 07/12/2025 01:26 PM EDT RPWorkstation: [id number] Thank you for referring your patient to us, Jersey Green MD [phone] (Electronically Signed - 07/12/2025 13:26) Copy: KATIE RIZVI PA-C [facility] [address] [place] [address] Nat Bolanos NP IMG LEGACY PROCEDURES Final R esult * CT Chest Low Dose Cancer Baseline Screening (03/16/2025 11:33 AM EDT) Anatomical Region Laterality Modality Chest Computed Tomogra phy 03/16/2025 11:4 5 AM EDT 03/16/2025 11:45 AM EDT Impressions 03/23/2025 4:44 PM EDT 1. Stable spiculated right upper lobe nodule which was biopsied and negative for malignancy. 2. No new or suspicious pulmonary nodules are seen. 3. Incidental note made of minimal emphysema, stable small adrenal nodules and left-sided nephrolithiasis. ASSESSMENT: 1. Lung-RADS Category 2: Benign appearance or behavior of nodules. N/A 2. Lung-RADS Category S: Negative. There are no clinically significant or potentially clinically significant findings not related to the lungs requiring urgent additional evaluation. RECOMMENDATION: Continued routine annual low-dose CT lung screening in 1 year is recommended. An order for CT CHEST LOW DOSE CANCER SCREENING ([id number]) can be placed. Electronically signed by: Kaushik Torres MD 03/23/2025 04:44 PM EDT RP Thank you for referring your patient to us, Kaushik Torres MD [phone] (Electronically Signed - 03/23/2025 16:44) Copy: KATIE RIZVI PA-C [facility] [address] [facility] [place] [address] PATIENT , Narrative 03/23/2025 4:44 PM EDT EXAMINATION: CT LOW-DOSE SCREENING CHEST WITHOUT CONTRAST CLINICAL INFORMATION: Encounter for screening for malignant neoplasm of respiratory organs. Nicotine dependence, cigarettes, in remission. The patient has a 76.5 pack-year history of smoking, having quit 6 years ago. COMPARISON: Multiple prior CT scans of the chest, the most recent of which is dated 08/07/2022 and the most remote of which is dated 01/01/2019. CT abdomen 02/26/2025 TECHNIQUE: Multidetector volumetric non-contrast CT imaging of the chest was obtained on a ScaleGrida 660 scanner using low-dose screening CT technique. Axial thin section 0.625 mm reformations in soft tissue and lung windows were obtained. Sagittal and coronal reformations were obtained. Axial MIP images were also created and reviewed. RECONSTRUCTED WIDTH: 1.25 mm x 1.[address] examination was performed using dose optimization techniques as appropriate, variously including the following: *Automated exposure control *Adjustment of mA and/or kV according to patient size (this includes techniques or standardized protocols for targeted exams where dose is matched to indication/reason for exam; i.e. extremities or head) *Use of iterative reconstruction technique TOTAL EXAM DLP: 136.65 mGy-cm. CTDIvol: 4.25 mGy. FINDINGS: PULMONARY NODULES: Again seen is a spiculated nodule in the right upper lobe measuring 8 x 6 mm which was biopsied on 08/05/2019 and was negative for malignancy. It is unchanged when compared to the prior study (5:112 compare prior 4:98). A few small calcified punctate granuloma are noted. LUNGS: Lungs bilaterally symmetrically expanded. There is minimal emphysema and bronchial thickening without bronchiectasis. No effusion or pneumothorax. Central airways patent. MEDIASTINUM: Some small mediastinal lymph nodes are present but there is no mediastinal or hilar lymphadenopathy. The largest node is pretracheal measuring 1 cm in short axis, unchanged. CORONARY ARTERY CALCIFICATION: Marked THYROID GLAND: Unremarkable to the extent seen. CARDIOVASCULAR STRUCTURES: Aortic and heart size normal. No pericardial effusion. CHEST WALL/AXILLA: Unremarkable. UPPER ABDOMEN: Bilateral small adrenal nodules demonstrate long-term stability and no further imaging or follow-up is necessary. There is left-sided nephrolithiasis seen in the partially visualized kidneys with the largest stone measuring 6 mm Included portions of the solid organs in the upper abdomen unremarkable on noncontrast imaging. OSSEOUS STRUCTURES: Bilateral shoulder prostheses are present. Degenerative changes are seen in the spine. No suspicious focal findings. Procedure Note Kaushik Torres MD - 03/23/2025 EXAMINATION: CT LOW-DOSE SCREENING CHEST WITHOUT CONTRAST CLINICAL INFORMATION: Encounter for screening for malignant neoplasm of respiratory organs.Nicotine dependence, cigarettes, in remission. The patient has a 76.5pack-year history of smoking, having quit 6 years ago. COMPARISON: Multiple prior CT scans of the chest, the most recent of which is dated110/07/2021 and the most remote of which is dated 01/01/2019. CT [id number]/2025 TECHNIQUE: Multidetector volumetric non-contrast CT imaging of the chest was obtainedon a ScaleGrida 660 scanner using low-dose screening CT technique. Axialthin section 0.625 mm reformations in soft tissue and lung windows wereobtained. Sagittal and coronal reformations were obtained. Axial MIP images were also created andreviewed. RECONSTRUCTED WIDTH: 1.25 mm x 1.[address] examination was performed using dose optimization techniques asappropriate, variously including the following: *Automated exposure control *Adjustment of mA and/or kV according to patient size (this includestechniques or standardized protocols for targeted exams where dose ismatched to indication/reason for exam; i.e. extremities or head) *Use of iterative reconstruction technique TOTAL EXAM DLP: 136.65 mGy-cm. CTDIvol: 4.25 mGy. FINDINGS: PULMONARY NODULES: Again seen is a spiculated nodule in the right upperlobe measuring 8 x 6 mm which was biopsied on 08/05/2019 and was negativefor malignancy. It is unchanged when compared to the prior study (5:112compare prior 4:98). A few small calcified punctate granuloma are noted. LUNGS: Lungs bilaterally symmetrically expanded. There is minimalemphysema and bronchial thickening without bronchiectasis. No effusion orpneumothorax. Central airways patent. MEDIASTINUM: Some small mediastinal lymph nodes are present but there isno mediastinal or hilar lymphadenopathy. The largest node is pretrachealmeasuring 1 cm in short axis, unchanged. CORONARY ARTERY CALCIFICATION: Marked THYROID GLAND: Unremarkable to the extent seen. CARDIOVASCULAR STRUCTURES: Aortic and heart size normal. No pericardialeffusion. CHEST WALL/AXILLA: Unremarkable. UPPER ABDOMEN: Bilateral small adrenal nodules demonstrate long-termstability and no further imaging or follow-up is necessary. There isleft-sided nephrolithiasis seen in the partially visualized kidneys withthe largest stone measuring 6 mm Included portions of the solid organs in the upper abdomen unremarkable onnoncontrast imaging. OSSEOUS STRUCTURES: Bilateral shoulder prostheses are present.Degenerative changes are seen in the spine. No suspicious focalfindings. IMPRESSION: 1. Stable spiculated right upper lobe nodule which was biopsied andnegative for malignancy. 2. No new or suspicious pulmonary nodules are seen. 3. Incidental note made of minimal emphysema, stable small adrenalnodules and left-sided nephrolithiasis. ASSESSMENT: 1. Lung-RADS Category 2: Benign appearance or behavior of nodules. N/A 2. Lung-RADS Category S: Negative. There are no clinically significant orpotentially clinically significant findings not related to the lungsrequiring urgent additional evaluation. RECOMMENDATION: Continued routine annual low-dose CT lung screening in 1 year isrecommended. An order for CT CHEST LOW DOSE CANCER SCREENING ([id number]) canbe placed. Electronically signed by: Kaushik Torres MD 03/23/2025 04:44 PM EDT RPWorkstation: [id number] Thank you for referring your patient to us, Kaushik Torres MD [phone] (Electronically Signed - 03/23/2025 16:44) Copy: KATIE RIZVI PA-C [facility] [address] [place] [address] PATIENT , us María Armendariz MD IMG CT ORDERABLES Final R esult * (ABNORMAL) Hemoglobin A1c with Estimated Average Glucose (AM) (12/31/2018 7:48 AM EDT) Hemoglobin A1C 9.0(H) <5.7 % [facility] Comment: A1c% Interpretation 5.7 - 6.0 Increase risk of diabetes 6.1 - 6.4 Higher risk of diabetes > or = 6.5 Consistent with diabetes Diabetes Care, 33(Supp 1):S1-S61, 2010 Estimated Average Glucose 212 mg/dL [facility] Blood specimen (specimen) Blood specimen / Unknown 12/31/2018 7:48 AM EDT 12/31/2018 8:54 AM EDT us Michael Cordova MD LAB BLOOD ORDERABLES Final Resul t HOSPITAL LAB from Last 3 Months or Most Recently Relevant to Health Maintenance Insurance [employer] D MEDICARE Advance Directives * Full Code (Latest Code Status on File) Date Activated Date Inactivated Comments 12/29/2018 6:10 PM 08/05/2019 8:36 AM Care Teams Ore Buyer Relationship Specialty Start Date End Date Katie Rizvi PA PCP - General 04/03/16 Harley Ly MD [address] [place] [id number] Primary Liner Worker Cardiovascular Disease 07/27/25
--- OUTSIDE RECORDS SUMMARY | 2025-09-08 22:01 | XMS_ITS | Clinical Summary ---
Author Organization [facility] Prior to 02/27/25 Address [address] [place] [address] Care Team Providers Care Boot Liner Maker Name Role Phone Katie Turner PA-C Primary [...] 3 10/29/2023 Active OneTouch Delica Lancets 33G [facility] Patient test glucose TID DX E11.9 100 [...] 6 each 3 06/19/2024 Active Continuous Glucose Locomotive Switch Operator (FreeStyle Minerva 3 [place]) DESIRAE 1 Device by Does not apply [...] 88 06/17/2024 10:14 AM EDT Temperature 36.8 C (98.2 F) 06/17/2024 10:14 AM EDT Respiratory Rate 15 08/01/2022 11:30 AM EDT [...] Diabetes: Foot Exam 05/01/2024 05/01/2023, 06/22/2021, 03/27/2019 BMI Counseling 08/15/2024 08/15/2023, 04/30, 12/20/2021, Additional history exists Depression Screening 12/02/2024 12/03/2023, 10/23/2022, 07/17/2022, Additional history exists Fall Risk Assessment 12/02/2024 12/03/2023, 10/23/2022, 07/17/2022, Additional history exists Preventative Health Evaluation 12/02/2024 12/03/2023, 09/03/2023, 10/23/2022, Additional history exists Diabetes: Microalbumin Test 03/10/2025 0609/2023, 06/10/2023, 07/17/2022, Additional history exists Hemoglobin A1C Due 05/02/2025 11/02/2024, 0 06/10/2024, 03/03/2024, Additional history exists COVID-19 Vaccine ( season) 2025 09/15/2021, 01/02/2021, 12/05/2020 Influenza Vaccine (#1) 2025 , 07/28/2022, 07/11/2021, Additional history exists Osteoporosis Screening [...] No change(2019 3:24 PM EDT) No Ingrid Swanosn, RN Note: Not Met Diabetes: Check Feet Daily Wellness Coaching On track( 020 3:24 PM EDT) No Ingrid Swanson, RN Note: Also schedule a follow-up appointment with Dr. An. - PCP [place] [address] Hemalatha Cuellos Personal/Family Self 1955 [address] [place] [address], [place] [address] C[place],Hemalatha Chavezs Personal/Family Self [address] [place] [address], [place] [address] C[place],Hemalatha Chavezs Personal/Family Self [address] [place] [address], [place] [address] Hemalatha Cuellos Personal/Family Self [address] [place] [address], [place] [address] Hemalatha Cuellos Personal/Family Self [address] [place] [address], [place] [address] Hemalatha Cuellos Personal/Family Self [address] [place] [address], [place] [address] C[place],Hemalatha Chavezs Personal/Family Self [address] [place] [address], [place] [address] Hemalatha Cuellos Personal/Family Self [address] [place] [address], [place] [address] Hemalatha Cuellos Personal/Family Self 1955 [address] [place] [address], [place] [address] Advance Directives For more information, please contact: [phone] Documents on File Type Date Recorded Patient Digital Art Director Expl anation Power of Contact Lens Assistant 05/11/2015 4:28 PM Latest Code Status on File Code Status Date Activated Date Inactivated Comments Full Code 12/22/2018 8:36 PM 12/24/2018 6:32 PM This code status was ascertained in the following way: Patient . Care Teams Boot Liner Maker Relationship Specialty Start Date End Date Katie Turner PA-C PCP - General Physician Management Information Systems Director 05/11/15
--- OUTSIDE RECORDS SUMMARY | 2025-09-08 22:01 | XMS_ITS | Encounter Summary ---
Author Organization [facility] Address [address] [place] [address] Care Team Providers Care Oracle Hrms Developer Name Role Phone Katie Turner Primary Care Provider [phone] Harley Ly MD Unavailable [phone] Encounter Details Date Type Department Care Team (Late Contact Info) Description 01/10/2022 Scanned Document [facility] Pulmonary [place] [address] [place] [phone] Pulmonary, Scan Social History Tobacco Use Types [...] Info) Description 09/20/2025 9:30 AM EST Appointment [facility] [place] [address] [place] [phone] Harley Ly MD [address] [place] [address] [phone] documented as of this encounter Goals Goal [...] on filedocumented in this encounter Care Teams Oracle Hrms Developer Relationship Specialty Start Date End Date Katie Turner PA PCP - General 04/03/16 Harley Ly MD [address] [place] [address] [place] [address] Primary Steward/Stewardess Night Cardiovascular Disease 07/27/25 documented as of this encounter
--- OUTSIDE RECORDS SUMMARY | 2025-09-08 22:01 | XMS_ITS | Encounter Summary ---
Author Organization [facility] Address [address] [place] [address] Care Team Providers Care Online Tutor Name Role Phone Katie Turner Primary Care Provider [phone] Harley Ly MD Unavailable [phone] Encounter Details Date Type Department Care Team (Late Contact Info) Description 05/14/2022 Scanned Document [facility] Neurosurgery and Spine [address] [phone] Joel Shay MD [address] [place] [address] [place] [address] Social History Tobacco Use Types Packs/Day Years [...] Exposure Response Date Recorded In the last 10 days, have yo u been in contact with someone who was confirmed or suspected to have Coronavirus/COVID-19? No / Unsure 04/16/2022 12:39 PM EDT documented as of this encounter Plan of Treatment Upcoming Encounters Date Type Department Care Team (Late st Contact Info) Description 09/20/2025 9:30 AM EST Appointment [facility] [address] [phone] Harley Ly MD [address] [place] [address] documented as of this encounter Goals Goal [...] on filedocumented in this encounter Care Teams Online Tutor Relationship Specialty Start Date End Date Katie Turner PA PCP - General 04/03/16 Harley Ly MD [address] [place] [address] Primary Male Model Cardiovascular Disease 07/27/25 documented as of this encounter
--- OUTSIDE RECORDS SUMMARY | 2025-09-08 22:01 | XMS_ITS | Encounter Summary ---
Author Organization [facility] Address [address] [place] [address] Care Team Providers Care French Weaver Name Role Phone Katie Turner Primary Care Provider [phone] Harley Ly MD Unavailable [phone] Encounter Details Date Type Department Care Team (Late Contact Info) Description 01/02/2022 Scanned Document [facility] Pulmonary [place] [address] [place] [phone] Pulmonary, Scan Social History Tobacco Use Types [...] 09/20/2025 9:30 AM EST Appointment [facility] [place] [address] [place] [phone] Harley Ly MD [address] [place] [address] [phone] documented as of this encounter Goals Goal [...] on filedocumented in this encounter Care Teams French Weaver Relationship Specialty Start Date End Date Katie Turner PA PCP - General 04/03/16 Harley Ly MD [address] [place] [address] [place] [address] Primary Public Safety Officer Cardiovascular Disease 07/27/25 documented as of this encounter
--- OUTSIDE RECORDS SUMMARY | 2025-09-08 22:01 | XMS_ITS | Continuity of Care Document ---
Author Organization [employer] [facility], [id number] Address [address] [place] [address] Assessment Encounter Date Assessment Date Assessment LastModified by Organization Details LastModified Time 08/18/2025 08/18/2025 [facility] MAW 08/18/2025 T2DM A1C 6.8 (7.1)(prev 9.4) Tresiba 60 qhs Novolog 15 AM only-->inc to 20-->ran low-->reduced to 10, still >90% in range, cont at 10 for now Mounjaro 10 Statin intolerant-->cont Repatha 140 Losartan 25 DM education completed Foot/eye care plan in place Renal fxn stable Urine microalb/cr followed by nephrology Atherosclerosis T2DM ADR statin Cont Repatha 140 q 2 weeks CKD 3 Labs to Monica Loja LE pain multifactorial Today 08/18/2025--> trial methocarbamol 500 1-2 qhs Postlaminectomy syndrome, lumbar region Spinal stenosis; lumbar radiculopathy, chronic-->advanced spondylosis on MRI C/T/LS spine-->follow up neurosurgeon scheduled; continue PT Diabetic polyneuropathy associated with type 2 diabetes mellitus Vascular eval done-->wear compression socks Partial improvement off of statin --> remain off rosuvastatin, continue Repatha 140 mg every 2 weeks (atherosclerosis) vitamin D, electrolytes, renal function Could try B6 30 mg 3 times daily; if paresthesias occur will discontinue Pickle juice prn Consider vitamin E 800 nightly? Consider discontinue LABA? Hydration Continue PT/stretching ====06/17/2025==== Muscle pain/cramping, severe No weakness No RLS Partial improvement off of statin --> remain off rosuvastatin, continue Repatha 140 mg every 2 weeks (atherosclerosis) Check vitamin D, electrolytes, renal function She is scheduled to see a neurosurgeon due to h/o spinal stenosis Could try B6 30 mg 3 times daily; if paresthesias occur will discontinue Pickle juice/mustard as needed Consider vitamin E 800 nightly? Consider discontinue LABA? Hydration Continue PT/stretching Follow-up if persistent or any new/worsening symptoms Routine diabetes follow-up scheduled Atherosclerosis T2DM ADR statin Cont Repatha 140 q 2 weeks =====05/19/25==== T2DM A1C 7.1 (7.2)(prev 9.4) Tresiba 60 qhs Novolog 15 AM only-->inc to 20 Mounjaro 10 Rosuvastatin 20 Losartan 25 DM education completed Foot/eye care plan in place Renal fxn stable Urine microalb/cr followed by nephrology Adrenal adenoma Hypothyroidism MNG Followed by endocrinology Sameer CKD 3 Labs to Monica Loja LE pain Multifactorial incl Postlaminectomy syndrome, lumbar region Lumbar radiculopathy, chronic Diabetic polyneuropathy associated with type 2 diabetes mellitus Vascular eval scheduled Spinal stenosis w neurogenic claudication-->PT eval and treatment Vein eval done Vincent-->wear compression socks AVILA Likely deconditioning UTD with pulm, cardiology and no new sx; f/u as scheduled use trelegy! The patient is advised to follow up for any new or worsening symptoms at any time, symptom recurrence after completing therapy or other concerns Continue with prescribed medication adjustments, and adhere to the recommended management plans for each condition. =========cpx 09/03/2023 ======== [facility] Colon cancer screening: Multiple high risk polyps on recent colonoscopy 08/01/2022 (Kassandra) Repeat colonoscopy overdue-->she will call to schedule Breast cancer screening: Up to date yearly per patient Cervical cancer screening: DIVINE/BSO age 38 Tetanus vaccination: Patient refused Other vaccinations: Recommend Shingrix; [id number] BMD:*Normal 06/22/2021 at [facility]-->repeat [facility] ASCVD risk: Followed by cardiology [place] LDCT: Per Dr. Evie Armendariz Hep C screen: Negative 06/17/2018 MAW: 10/23/2022 Adv dir:*04/2021*Patient reports her son and his are her healthcare proxy.She has discussed end-of-life wishes with them and does not want heroic measures. *Shared advanced directives worksheet with patient Qflo:*04/2021, nl Extensive coronary artery calcification on CTA chest Abdominal aortic atherosclerosis on CT Hypertension Comorbid risk factors of type 2 diabetes and CKD 3 Followed by cardiology, Dr. Holloway *Chronic constipation, longstanding Never tried Linzess 72, still has at home, encouraged her to try it Miralax may be helpful, titrate to effect POV Try bulking agent such as Metamucil Adequate fluid intake Obstructive sleep apnea, on CPAP Severe daytime sleepiness Hypersomnolence status post craniotomy 2002 for 2 cerebral aneurysms Pulmonary nodules Followed by Marcello Has seen neurology Continue dextroamphetamine 10 mg 3 times daily*(see pulm note) *Chronic pain Vasomotor rhinitis Cont Atrovent nasal spray Depression, in remission Stable Continue current dose of bupropion XL 150 daily === Quit smoking 12/2018 Retired electrician aircraft/high school shop/tech teacher Past surgical history: Cerebral aneurysm repair [place] at [facility] [place] Appendectomy DIVINE Lap cholecystectomy 2010 Bilateral shoulder surgery; total shoulder replacements left and right Left carpal tunnel release/STS left thumb/ring finger 08/2016 CT-guided lung biopsy 2018 L1-L5 posterior lumbar decompressive laminectomies 11/15/2020 The patient is advised to follow up for any new or worsening symptoms at any time, symptom recurrence after completing therapy or other concerns Continue with prescribed medication adjustments, and adhere to the recommended management plans for each condition. [email or web address] Not available 08/18/2025 21:31:02 Plan of Treatment Reminders Order Date Submit Date Provider Last Modified By Organization Details Last Modified Time Details Appointments LAB WORK 5 2025 07:20A M Nurse Not available Not available Not available PHYSICAL 45 2025 01:45P M MORE Velasco Not available Not available Not available Lab None recorded . Referral None recorded . Procedures None recorded . Surgeries None recorded . Imaging None recorded . Medication Orders methocar bamol 500 mg tablet 2024 025 [id number], [address], [place], [address], 08/18/2025 14:28:02 Novolog FlexPen U-100 Insulin aspart 100 unit/mL (3 mL) subcutan eous 2024 025 [facility] [facility], [address], [place], [address], 08/18/2025 14:28:38 Patient TargetsNo targets recorded. Patient InstructionsNo instructions recorded. Reason for Referral None Reported. Results Created Date Observation Date Name Description Value Unit Range Abnormal Flag Note LastModifiedBy Organization Detail LastModifiedTime 08/10/2008/11/2025 LIPID PANEL WITH REFLE X TO DIREC T LDL cholesterol, total 111 mg/dL <200 normal Not Available [facility] [place] [facility] [address], [address], 08/11/2025 02:45:33 08/10/20 25 08/11/2025 LIPID PANEL WITH REFLE X TO DIREC T LDL HDL cholesterol 46 mg/dL > or = 50 low Not Available [facility] [place] [facility] [address], [address], 08/11/2025 02:45:33 08/10/20 25 08/11/2025 LIPID PANEL WITH REFLE X TO DIREC T LDL triglyceride s 154 mg/dL <150 high Not Available [facility] [place] [facility] [address], [address], 08/11/2025 02:45:33 08/10/20 25 08/11/2025 LIPID PANEL WITH REFLE X TO DIREC T LDL LDL-choleste rol 41 mg/dL _(geraldine c) normal Refer ence range : <100 Era able range <100 mg/dL for prima ry preve ntion ; <70 mg/dL for patie nts with CHD or diabe tic patie nts with > or = 2 CHD risk facto rs. LDL-C is now calcu lated using the Irish n-Hop kins hyacinthu jer n, which is a valid ated novel hawa clay accur acy than the Fried carmen equat ion in the estim ation of LDL-C . Irish mann SS et al. PARAS. 2013; 310(1 9): 2061- 2068 (http ://ed ucati on.My-wardrobe.com nirmalLinchpin. com/f aq/FA Q164) Not Available [facility] [place] [facility] [address], [address], 08/11/2025 02:45:33 08/10/20 25 08/11/2025 LIPID PANEL WITH REFLE X TO DIREC T LDL chol/HDLC ratio 2.4 (calc ) <5.0 normal Not Available [facility] [place] [facility] [address], [place], [address], 08/11/2025 02:45:33 08/10/20 25 08/11/2025 LIPID PANEL WITH REFLE X TO DIREC T LDL non HDL cholesterol 65 mg/dL _(geraldine c) <130 normal For patie nts with diabe oscar plus 1 major ASCVD risk facto r, treat ing to a non-H DL-C goal of <100 mg/dL (LDL- C of <70 mg/dL ) is consi dyanad a bela gina jaimeso n. Not Available [facility] [place] [facility] [address], [place], [address], 08/11/2025 02:45:33 08/10/20 25 08/11/2025 COMPR EHENS ELISE METAB OLIC PANEL glucose 133 mg/dL 65-99 high Fasti ng refer ence inter cliff For someo ne witho ut known diabe oscar, a gluco se value >125 mg/dL indic ates that they may have diabe oscar and this shoul d be confi rmed with a follo w-up test. Not Available [facility] [place] [facility] [address], [place], [address], 08/11/2025 02:45:34 08/10/20 25 08/11/2025 COMPR EHENS ELISE METAB OLIC PANEL urea nitrogen (BUN) 18 mg/dL 7-25 normal Not Available [facility] [address], [place], [address], 08/11/2025 02:45:34 08/10/20 25 08/11/2025 COMPR EHENS ELISE METAB OLIC PANEL creatinine 1.10 mg/dL 0.60-1 .00 high Not Available [facility] [address], [place], [address], 08/11/2025 02:45:34 08/10/20 25 08/11/2025 COMPR EHENS ELISE METAB OLIC PANEL eGFR 54 mL/mi n/1.7 3m2 > or = 60 low Not Available [facility] [address], [place], [address], 08/11/2025 02:45:34 08/10/20 25 08/11/2025 COMPR EHENS ELISE METAB OLIC PANEL BUN/creatini ne ratio 16 (calc ) 6-22 normal Not Available [facility] [address], [place], [address], 08/11/2025 02:45:34 08/10/20 25 08/11/2025 COMPR EHENS ELISE METAB OLIC PANEL sodium 140 mmol/ L 135-14 6 normal Not Available [facility] [address], [place], [address], 08/11/2025 02:45:34 08/10/20 25 08/11/2025 COMPR EHENS ELISE METAB OLIC PANEL potassium 4.3 mmol/ L 3.5-5. 3 normal Not Available [facility] [address], [place], [address], 08/11/2025 02:45:34 08/10/20 25 08/11/2025 COMPR EHENS ELISE METAB OLIC PANEL chloride 104 mmol/ L 98-110 normal Not Available [facility] [place] [facility] [address], [place], [address], 08/11/2025 02:45:34 08/10/20 25 08/11/2025 COMPR EHENS ELISE METAB OLIC PANEL carbon dioxide 30 mmol/ L 20-32 normal Not Available [facility] [address], [place], [address], 08/11/2025 02:45:34 08/10/20 25 08/11/2025 COMPR EHENS ELISE METAB OLIC PANEL calcium 9.2 mg/dL 8.6-10 .4 normal Not Available [facility] [address], [place], [address], 08/11/2025 02:45:34 08/10/20 25 08/11/2025 COMPR EHENS ELISE METAB OLIC PANEL protein, total 5.8 g/dL 6.1-8. 1 low Not Available [facility] [address], [place], [address], 08/11/2025 02:45:34 08/10/20 25 08/11/2025 COMPR EHENS ELISE METAB OLIC PANEL albumin 3.8 g/dL 3.6-5. 1 normal Not Available [facility] [address], [place], [address], 08/11/2025 02:45:34 08/10/20 25 08/11/2025 COMPR EHENS ELISE METAB OLIC PANEL globulin 2.0 g/dL_ (calc ) 1.9-3. 7 normal Not Available [facility] [address], [place], [address], 08/11/2025 02:45:34 08/10/20 25 08/11/2025 COMPR EHENS ELISE METAB OLIC PANEL albumin/glob ulin ratio 1.9 (calc ) 1.0-2. 5 normal Not Available [facility] [address], [place], [address], 08/11/2025 02:45:34 08/10/20 25 08/11/2025 COMPR EHENS ELISE METAB OLIC PANEL bilirubin, total 0.3 mg/dL 0.2-1. 2 normal Not Available [facility] [address], [place], [address], 08/11/2025 02:45:34 08/10/20 25 08/11/2025 COMPR EHENS ELISE METAB OLIC PANEL alkaline phosphatase 80 U/L 37-153 normal Not Available [facility] [address], [place], [address], 08/11/2025 02:45:34 08/10/20 25 08/11/2025 COMPR EHENS ELISE METAB OLIC PANEL AST 22 U/L 10-35 normal Not Available [facility] [address], [place], [address], 08/11/2025 02:45:34 08/10/20 25 08/11/2025 COMPR EHENS ELISE METAB OLIC PANEL ALT 21 U/L 6-29 normal Not Available [facility] [address], [place], [address], 08/11/2025 02:45:34 08/10/20 25 08/10/2025 HEMOG LOBIN A1C WITH EAG hemoglobin A1C 6.8 % <5.7 high For someo ne witho ut known diabe oscar, a hemog lobin A1c value of 6.5% or great er indic ates that they may have diabe oscar and this shoul d be confi rmed with a follo w-up test. For someo ne with known diabe oscar, a value <7% indic ates that their diabe oscar is well contr olled and a value great er than or equal to 7% indic ates subop timal contr ol. A1c targe ts shoul d be indiv idual ized based on durat ion of diabe oscar, age, comor bid condi tions , and other consi derat ions. Curre ntly, no conse nsus exist s savage beebe use of hemog lobin A1c for diagn osis of diabe oscar for child radha. Not Available [facility] [address], [place], [address], 08/10/2025 23:21:22 08/10/20 25 08/10/2025 HEMOG LOBIN A1C WITH EAG EAG (mg/dL) 148 mg/dL Not Available [facility] [address], [place], [address], 08/10/2025 23:21:22 08/10/20 25 08/10/2025 HEMOG LOBIN A1C WITH EAG EAG (mmol/L) 8.2 mmol/ L Not Available [facility] [address], [place], [address], 08/10/2025 23:21:22 08/18/20 25 08/19/2025 ALBUM IN, RANDO M URINE W/CRE ATINI NE creatinine, random urine 47 mg/dL 20-275 normal Not Available [facility] [address], [place], [address], 08/19/2025 17:12:49 08/18/20 25 08/19/2025 ALBUM IN, RANDO M URINE W/CRE ATINI NE albumin, urine 8.5 mg/dL see note: normal Refer ence Range : Refer ence Range Not estab lishe d Not Available [facility] [address], [place], [address], 08/19/2025 17:12:49 08/18/20 25 08/19/2025 ALBUM IN, RANDO M URINE W/CRE ATINI NE albumin/crea tinine ratio, random urine 181 mg/g_ creat <30 high The ADA defin es abnor malit ies in album in excre tion as follo ws: Album inuri a Categ ory Resul t (mg/g creat inine ) Krys l to Mildl y incre ased <30 Moder ately incre ased 30-29 9 Sever trudy incre ased > OR = 300 The ADA recom mends that at least two of three speci mens colle cted withi n a 3-6 month perio d be abnor mal befor e consi sapna g a patie nt to be withi n a diagn ostic categ ory. Not Available [facility] [place] [facility] [address], [place], [address], 08/19/2025 17:12:49 07/30/20 25 07/30/2025 MRI, shoul elizabet, w/o contr ast No observ ation record ed. [facility] [place] [address], [place], [address], 08/01/2025 20:21:20 08/09/20 25 07/30/2025 MRI, cervi cotho racol umbar spine , w/o contr ast No observ ation record ed. [facility] [place] [address], [place], [address], 08/15/2025 18:45:33 09/06/20 25 US, duple x, abdom en No observ ation record ed. [email or web address] Not Available 09/06 14:29:09 Result Notes None recorded. Problems Name Problem SNOMED Code Status Onset Date Resolution Date Notes Provider Name and Address Organization Details Recorded Time Hypersom kranthi 50987995 Active 2014 Hypersom nolence; CFY6Fjko ription: Hypersom nolence; NUV80Lzn cription : Hypersom nolence; dlname: Aliyah; dfname: Lana ; dminit: Aylin; Physicia n_Suffix : PA-C; Physicia n_Phone: tel: [phone]; Physicia n_Fax: fax:[phone]; Physicia n_Specia lty: Neurolog y; Physicia n_Addr1: [address]; Physicia n_Addr2: [address]; Physicia n_City: [facility]; Physicia n_State: [place]; Physicia n_Postal Code: [id number]; NPI: [id number]; Not Available [facility] 11:52:33 Hypersom kranthi with sleep apnea 23639644 Active 2014 Sleep apnea with hypersom nolence; OLU6Itdj ription: Sleep apnea with hypersom nolence; IXN93Def cription : Sleep apnea with hypersom nolence; dlname: Arslan; dfname: Tevin; dminit: B; Physicia n_Suffix : ; Physicia n_Phone: tel: [phone]; Physicia n_Fax: fax: [phone]; Physicia n_Specia lty: Pulmonar y Disease; Physicia n_Addr1: [address]; Physicia n_Addr2: [address]; Physicia n_City: [facility]; Physicia n_State: [place]; Physicia n_Postal Code: [address]; NPI: [id number]; Not Available [facility] 11:52:32 Electroc ardiogra m abnormal 721774896 Active 2015 Abnormal EKG; OXG2Abiq ription: Abnormal EKG; SMV48Dsa cription : Abnormal EKG; dlname: Razia; dfname: Marty; Physicia n_Suffix : ; Physicia n_Phone: tel: [phone]; Physicia n_Fax: fax:[phone]; Physicia n_Specia lty: Cardiolo gy; Physicia n_Addr1: [address] [facility]; Physicia n_Addr2: [address]; Physicia n_City: [place] ; Physicia n_State: [place]; Physicia n_Postal Code: [address]; NPI: [id number]; Not Available [facility] 5 11:52:30 History of surgery for cerebral aneurysm 215817819 Active 2015 H/O cerebral aneurysm repair; NMB2Fxyq ription: H/O cerebral aneurysm repair; IWA64Yul cription : H/O cerebral aneurysm repair; NPI: [id number]; Not Available [facility] 5 11:52:31 Essentia l hyperten michaelle 53781342 Active 2015 Essentia l hyperten michaelle; CHA1Muwk ription: Essentia l hyperten michaelle; RAW11Wob cription : Essentia l hyperten michaelle; NPI: [id number]; Not Available [facility] 5 11:52:35 Kidney stone 83024287 Active 2017 Nephroli thiasis; CXH3Gtsj ription: Nephroli thiasis; HQC50Jtw cription : Nephroli thiasis; dlname: Dani; dfname: Radha; Physicia n_Suffix : [place]; Physicia n_Phone: tel:[phone]; Physicia n_Fax: fax:[phone]; Physicia n_Addr1: [address] [facility]; Physicia n_Addr2: [address]; Physicia n_City: [place] ; Physicia n_State: [place]; Physicia n_Postal Code: [address]; Not Available [facility] 5 11:52:31 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 [id number] 698761 Active 2017 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 on EMG/NCV 12/30/2016 ; KDL4Zods ription: Neuropat hy involvin g both lower extremit ies; HWS12Ylm cription : Neuropat hy involvin g both lower extremit ies; NPI: [id number]; Not Available [facility] 5 11:52:33 Abdomina l aortic atherosc lerosis 871775774 Active 2017 Abdomina l aortic atherosc lerosis on CT 06/2017; YAA0Towv ription: Abdomina l aortic atherosc lerosis; DOK81Ynu cription : Abdomina l aortic atherosc lerosis; NPI: [id number]; Not Available [facility] 5 11:52:29 Obstruct elise sleep apnea syndrome 61093085 Active 2017 Obstruct elise sleep apnea on CPAP; SGE2Spff ription: Obstruct elise sleep apnea on CPAP; DKD90Xnq cription : Obstruct elise sleep apnea on CPAP; NPI: [id number]; Not Available [facility] 5 11:52:38 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 33699477 Active 2017 DDD (degener ative disc disease) , lumbosac ral; RCT3Thqx ription: DDD (degener ative disc disease) , lumbosac ral; AXT19Qve cription : DDD (degener ative disc disease) , lumbosac ral; NPI: [id number]; Not Available [facility] 5 11:52:34 Synovial osteocho ndromato sis 016049015 Active 2017 Osteocho ndromato sis, synovial (right shoulder ); KXH8Zgqf ription: Osteocho ndromato sis, synovial ; XUJ71Xfs cription : Osteocho ndromato sis, synovial ; NPI: [id number] 42; Not Available [facility] 5 11:52:36 Bilatera l trochant rita bursitis [id number] 804256 Active 2017 Trochant rita bursitis of both hips; VUQ7Xuoe ription: Trochant rita bursitis of both hips; XXK39Bko cription : Trochant rita bursitis of both hips; NPI: [id number]; Not Available [facility] 5 11:52:38 Hypergly cemia due to type 2 diabetes mellitus 61017705628 9109 Active 2018 Type 2 diabetes mellitus with hypergly cemia, with long-ter m current use of insulin; HRL1Guhp ription: Type 2 diabetes mellitus with hypergly cemia, with long-ter m current use of insulin; IOW66Kjc cription : Type 2 diabetes mellitus with hypergly cemia, with long-ter m current use of insulin; NPI: [id number] 42; Not Available [facility] 5 11:52:34 Spinal stenosis of lumbar region 49853253 Active 2018 Spinal stenosis of lumbar region with neurogen ic claudica tion; WLI5Bdtt ription: Spinal stenosis of lumbar region with neurogen ic claudica tion; VFV83Xmx cription : Spinal stenosis of lumbar region with neurogen ic claudica tion; NPI: [id number] 42; Not Available [facility] 5 11:52:36 Chronic obstruct elise pulmonar y disease 39052350 Active 2018 COPD (chronic obstruct elise pulmonar y disease) ; MBE0Bwww ription: COPD (chronic obstruct elise pulmonar y disease) ; YHU24Pvz cription : COPD (chronic obstruct elise pulmonar y disease) ; dlname: Viet; dfname: Victor Manuel; Physicia n_Suffix : ; Physicia n_Phone: tel:[phone]; Physicia n_Fax: fax:[phone]; Physicia n_Specia lty: [facility] ; Physicia n_Addr1: [address] [place] [address]; Physicia n_Addr2: [facility]; Physicia n_City: [place] ; Physicia n_State: [place]; Physicia n_Postal Code: [address]; NPI: [id number]; Not Available [facility] 5 11:52:32 Pneumoni a 234514805 Active 2018 Pneumoni a 12/2018; BHS5Irmi ription: Pneumoni a; RJO95Hph cription : Pneumoni a; NPI: [id number]; Not Available [facility] 5 11:52:30 Sepsis 09383957 Completed 201805/19/2025 Sepsis 12/2018 MORE Velasco [address] [place] [address], [address] , [facility] 5 19:24:41 Acute respirat ory failure 32770971 Completed 201802/10/2025 Acute respirat ory failure with hypoxia 12/2018 MORE Velasco [address] [place] [address],[place], [address] , [facility] 5 17:03:38 Trochant rita bursitis of right hip 89734748275 9100 Active 2018 Trochant rita bursitis of right hip; DBA9Bbtc ription: Trochant rita bursitis of right hip; DFK61Axl cription : Trochant rita bursitis of right hip; dlname: Luis Fernando; dfname: Quinn; Physicia n_Suffix : DARCI MENDES; Not Available [facility] 5 11:52:38 Calcific ation of coronary artery 073456683 Active 2018 Extensiv e coronary artery calcific ation seen on CTA chest 01/01/2019 ; JMR7Lago ription: Coronary artery calcific ation seen on CAT scan; SOF20Euc cription : Coronary artery calcific ation seen on CAT scan; NPI: [id number]; Not Available [facility] 5 11:52:30 Ex-smoke r 4445197 Active 2018 Former smoker; KEK9Acsk ription: Former smoker; OCE83Cke cription : Former smoker; NPI: [id number] 42; Not Available [facility] 5 11:52:34 Adenoma of right adrenal gland 16772520180 135821 Active 2018 Adenoma of right adrenal gland on CTA 01/01/2019 ; BBB3Vhxb ription: Adenoma of right adrenal gland; TQL87Ehw cription : Adenoma of right adrenal gland; NPI: [id number]; Not Available [facility] 5 11:52:32 Heart failure with normal ejection fraction 726290512 Active 2018 Heart failure with preserve d ejection fraction , NYHA class I; MAM8Enzl ription: Heart failure with preserve d ejection fraction , NYHA class I; KBB62Ctl cription : Heart failure with preserve d ejection fraction , NYHA class I; NPI: [id number]; Not Available [facility] 5 11:52:37 Insulin treated type 2 diabetes mellitus 882078734 Active 2019 Type 2 diabetes mellitus with microalb uminuria , with long-ter m current use of insulin; JJU0Ryvi ription: Type 2 diabetes mellitus with microalb uminuria , with long-ter m current use of insulin; RBN94Iuh cription : Type 2 diabetes mellitus with microalb uminuria , with long-ter m current use of insulin; NPI: [id number] 42; Not Available [facility] 5 11:52:35 Chronic kidney disease stage 3A 869113739 Active 2019 Stage 3a chronic kidney disease; GQE9Bnjb ription: Stage 3a chronic kidney disease; UZQ69Pcg cription : Stage 3a chronic kidney disease; NPI: [id number] 42; Not Available [facility] 5 11:52:30 Nodule of lung 521836188 Active 2020 Pulmonar y nodule; [id number] ription: Pulmonar y nodule; SJD98Cls cription : Pulmonar y nodule; NPI: [id number]; Not Available [facility] 5 11:52:32 Venous insuffic iency of lower limb 503076927 Active 2020 Venous insuffic iency of both lower extremit ies; JCB1Ithi ription: Venous insuffic iency of both lower extremit ies; [id number] cription : Venous insuffic iency of both lower extremit ies; NPI: [id number]; Not Available [facility] 5 11:52:37 Bilatera l adenoma of adrenal glands [id number] 995368 Active 2024 MORE Velasco [address] [place] [address], [id number] , [facility] 5 10:06:32 Chronic kidney disease stage 3 680116027 Active 2024 MORE Velasco [address] [place] [address],[place], [place], , [facility] 5 10:06:34 Uncontro lled type 2 diabetes mellitus 214753007 Active 2024 MORE Velasco [address] [place] [address], , [facility] 5 10:06:37 Acquired hypothyr oidism 140802508 Active 2024 MORE Velasco [address] [place] [address], , [facility] 5 19:27:40 Problem Notes None recorded. Procedures Surgical History Date Name Laterality Status Provider Name and Address Organization Details Recorded Time 03/19/20 24 Bx breast 1st lesion strtctc completed Not Available [facility] 12/08/2024 04:02:35 08/01/20 22 Colsc flx 1st tndsc dilat completed Not Available [facility] 12/08/2024 04:02:35 09/30/19 11 Bx breast 1st lesion strtctc completed Not Available [facility] 12/08/2024 04:02:35 Anes dx shoulder arthroscopy completed Not Available [facility] 12/08/2024 04:02:35 Anesth lower arm procedure completed Not Available [facility] 12/08/2024 04:02:35 Appendectomy completed Not Available [facility] 12/08/2024 04:02:35 Imaging Results None recorded. Procedure Notes None recorded. Medical Equipment None Reported. Allergies Allergen ID Allergen Name Allergen Category Reaction Reaction Severity Criticality Documentation Date Start Date Code Code System Note Provider Name and Address Organization Details Recorded Time 2180 honey bee venom medicatio n anaphylax is Not available Not available 09/07/2024 94363 7 RxNorm Radha Dani null, [facility] 4 12:04:03 2182 BuTrans medicatio n Not available Not available Not available 09/07/2024 61423 1 RxNorm Radha Dani null, [facility] 4 12:13:00 2183 dicyclomi ne medicatio n Not available Not available Not available 09/07/2024 3361 RxNorm Radha Dani null, [facility] 4 12:13:08 2184 loperamid e medicatio n Not available Not available Not available 09/07/2024 6468 RxNorm Radha Dani null, [facility] 4 12:13:17 2185 promethaz ine medicatio n Not available Not available Not available 09/07/2024 8745 RxNorm Radha Dani null, [facility] 4 12:13:24 2186 codeine medicatio n Not available Not available Not available 09/07/2024 2670 RxNorm Radha Dani null, [facility] 4 12:13:28 46841 yellow hornet venom Not available anaphylax is Not available Not available 11/09/20242021 50928 1 RxNorm React ion: Anaph ylaxi s; Not Available [facility] 5 08:12:46 32937 honey bee venom environme nt anaphylax is Not available Not available 11/09/20242017 05348 7 RxNorm React ion: Anaph ylaxi s; Comme nt: dfnam e: Christina; dlnam e: Wagne r; Physi cian_ Addr1 : [address]; Physi cian_ Addr2 : Jarred 6; Physi cian_ City: [place]; Physi cian_ State : [place]; Physi cian_ Posta lCode : [address] ; Physi cian_ Phone : tel:[phone]; Physi cian_ Fax: fax:+ [phone]; Physi cian_ Suffi x: RN; Physi cian_ Speci alty: Aleksander yang Nurse ; ; Not Available [facility] 5 08:12:46 47034 wasp venoms environme nt anaphylax is Not available Not available 11/09/20242021 28139 RxNorm React ion: Anaph ylaxi s; Not Available [facility] 5 08:12:47 23233 buprenorp satish medicatio n Not available Not available Not available 11/09/20242022 1819 RxNorm Comme nt: dfnam e: Adelaida cee; dlnam e: Ed ; Physi cian_ Suffi x: MA; ; Not Available [facility] 5 08:12:47 10842 rosuvasta tin medicatio n myalgias (muscle pain) Not available low 08/17/20252024 84070 2 RxNorm Not Available [place] [employer] [facility] 5 05:08:03 12927 beeswax medicatio n anaphylax is Not available high 08/17/20252015 1356 RxNorm Not Available [place] [employer] 5 05:08:03 Medications Name Sig Start Date Stop Date Status Note LastModified by Organization Details LastModified Time amoxicill in 500 mg capsule TAKE 1 CAPSULE BY MOUTH EVERY 8 HOURS FOR 5 DAYS 11/05 completed Not Available Not Available Not Available methocarb allyn 500 mg tablet TAKE 1-2 TABLETS BY MOUTH AT BEDTIME NEEDED FOR MUSCLE SPASMS active Not Available Not Available No t Available cephalexi n 250 mg capsule TAKE 1 CAPSULE BY MOUTH 4 TIMES A DAY FOR 10 DAYS. 11/05 completed Not Available Not Available Not Available lotepredn ol etabonate 0.2 % eye drops,samira pension INSTILL 1 DROP INTO BOTH EYES TWICE A DAY 08/18 completed Not Available Not Available Not Available amlodipin e 2.5 mg tablet TAKE 1 TABLET BY MOUTH EVERY DAY 2024 active Not Available Not Available Not Avai lable sulfameth oxazole 800 mg-trimet hoprim 160 mg tablet Take 1 tablet twice a day by oral route for 3 days. 02/10 completed Not Available Not Available Not Available tramadol 50 mg tablet TAKE 1 TO 2 TABLETS BY MOUTH EVERY 6 TO 8 HRS NEEDED FOR PAIN. MAXIMUM OF 6 TABS IN 24 HRS 02/10 completed Not Available Not Available Not Available dextroamp hetamine sulfate 10 mg tablet TAKE 1 TABLET BY MOUTH FOUR TIMES A DAY active Not Available Not Available No t Available vancomyci n 125 mg capsule TAKE 1 CAPSULE BY MOUTH 4 TIMES A DAY. 11/30 completed Not Available Not Available Not Available levothyro xine 25 mcg tablet TAKE 1 TABLET BY MOUTH EVERY DAY active Not Available Not Available No t Available cefadroxi l 500 mg capsule TAKE 1 CAPSULE BY MOUTH TWICE A DAY FOR 5 DAYS FOR UTI. 02/10 completed Not Available Not Available Not Available lancets Patient test glucose TID DX E11.9 2023 active NPI: [id number] 42; Not Available Not Available Not Available dexametha sone 1 mg tablet 1 TAB BY MOUTH ONCE AT 11 PM 05/19 completed Not Available Not Available Not Available insulin aspart U-100 100 unit/mL subcutane ous solution Inject 10 Units under the skin once. active dfname: Not; dminit: In System; dlname: Provider ; Not Available Not Available Not Available losartan 25 mg tablet TAKE 1 TABLET (25 MG TOTAL) BY MOUTH DAILY. active Not Available Not Available No t Available gabapenti n 300 mg capsule TAKE 2 CAPSULES BY MOUTH 3 TIMES A DAY 2024 active Not Available Not Available Not Avai lable epinephri ne 0.3 mg/0.3 mL injection , auto-inje ctor USE DIRECTED FOR ALLERGIC REACTION active Not Available Not Available No t Available scopolami ne 1 mg over 3 days transderm al patch APPLY ONE PATCH EVERY 3 DAYS NEEDED FOR SEA SICKNESS 06/17 completed Not Available Not Available Not Available methylpre dnisolone 4 mg tablets in a dose pack TAKE 6 TABLETS ON DAY 1 DIRECTED ON PACKAGE AND DECREASE BY 1 TAB EACH DAY FOR A TOTAL OF 6 DAYS 06/17 completed Not Available Not Available Not Available Blood Glucose Test strips Patient test glucose TID DX E11.9 2022 active NPI: [id number] 42; Not Available Not Available Not Available Novolog FlexPen U-100 Insulin aspart 100 unit/mL (3 mL) subcutane ous INJECT 10 UNITS SUBCUTAN EOUSLY DAILY OR DIRECTED active Not Available Not Available No t Available rosuvasta tin 20 mg tablet TAKE 1 TABLET (20 MG TOTAL) BY MOUTH DAILY. TO PREVENT HEART ATTACK AND STROKE 06/17 completed Not Available Not Available Not Available Accu-Chek Katlyn Plus Meter USE DIRECTED THREE TIMES PER DAY 2019 active dfname: Nam; dlname: Chepe; Physicia n_Addr1: [address]; Physicia n_Addr2: Jarred C; Physicia n_City: [place] ; Physicia n_State: [place]; Physicia n_Postal Code: [id number]; NPI: [id number]; Physicia n_Suffix : PA-C; Physicia n_Phone: tel: [phone]; Physicia n_Fax: fax: [phone]; Physicia n_Specia lty: Vegetable Buncher ; Not Available Not Available Not Available Repatha SureClick 140 mg/mL subcutane ous pen injector INJECT 140 MG ONCE EVERY 14 DAYS active Not Available Not Available No t Available Tresiba FlexTouch U-200 insulin 200 unit/mL (3 mL) subcutane ous pen INJECT 60 UNITS UNDER THE SKIN DAILY active Not Available Not Available No t Available Linzess 72 mcg capsule TAKE 1 CAPSULE EVERY DAY BY ORAL ROUTE IN THE MORNING, FOR CONSTIPA TION. active Not Available Not Available No t Available OneTouch Delica Plus Lancet 33 gauge PATIENT TEST GLUCOSE 3 TIMES A DAY DX E11.9 active Not Available Not Available No t Available Trelegy Ellipta 200 mcg-62.5 mcg-25 mcg powder for inhalatio n INHALE 1 PUFF DAILY active Not Available Not Available No t Available Ozempic 1 mg/dose (4 mg/3 mL) subcutane ous pen injector INJECT 1 MG UNDER THE SKIN EVERY 7 DAYS 11/05 completed Not Available Not Available Not Available Ozempic 2 mg/dose (8 mg/3 mL) subcutane ous pen injector Inject 2 mg every week by subcutan eous route. 11/30 completed Not Available Not Available Not Available Paxlovid 150 mg-100 mg tablets in a dose pack (Moderate Renal Dose) TAKE 2 TABLETS BY MOUTH TWICE A DAY FOR 5 DAYS 11/05 completed Not Available Not Available Not Available Mounjaro 10 mg/0.5 mL subcutane ous pen injector INJECT 10 MG SUBCUTAN EOUSLY WEEKLY active Not Available Not Available No t Available FreeStyle Minerva 3 Archer 1 Device by Does not apply route continuo us. 2023 active NPI: [id number] 42; Not Available Not Available Not Available FreeStyle Minerva 3 Plus Sensor device ONE EVERY 15 DAYS . active Not Available Not Available No t Available Steffanie 2nd Gen Pen Needle 32 gauge x 5/32 INJECT 1 EACH UNDER THE SKIN 4 TIMES A DAY active Not Available Not Available No t Available Vitals Date Recorded Systolic And Diastolic Provider Name and Address Organization Details Last Updated DateTime 08/18/2025 139/77 mm[Hg] MORE Velasco [address] [place] [address], [id number], [facility] 08/18/2025 21:33:03 Date Recorded Body height Oxygen saturation Provider Name and Address Organization Details Last Updated DateTime 08/18/2025 170.18 cm 96 % Elicia Trombly [facility] 08/18/2025 14:11:27 Social History None recorded. Functional Status Question Answer Note LastModified by Organization D etails LastModified Time What is your level of alcohol consumption? None [email or web address] Information not available 12/08/2024 Mental Status None recorded. Family History Relationship Description Onset Age of this Age Resolved Age Notes LastModified by Organization Details LastModified Time Mother Arthritis Arthri tis; Member s: Mother [email or web address] Not available 12/08/2024 04:06:32 Notes:12/08/2024: Mother: Br ain cancer, Heart attack Nephew: GI problems, FAP Sister: Anuerysm, AgeAtOnSet: 60; , Breast cancer, AgeAtOnSet: 65; , Cancer, Migraines Medical History Condition Response Obesity Y Hypertension Y Ear or Hearing Problems Y Gynecological HistoryNo gynecological history recorded. Obstetrics History GPAL:G 0 P 0 0 0 0 Immunizations Vaccine Type Date Status Note Provider Nam e and Address Organization Details Recorded Time Influenza, split virus, quadrivalent, PF 8 completed Not Available [facility] 11/09/2024 12:44:39 pneumococcal polysaccharide PPV23 9 completed Not Available [facility] 11/09/2024 12:44:39 Influenza, MDCK, quadrivalent, PF 9 completed Yudith Ward null, [facility] 11/30/2024 11:06:14 COVID-19, mRNA, LNP-S, PF, 100 mcg/0.5mL dose or 50 mcg/0.25mL dose 1 completed Yudith Ward null, [facility] 11/30/2024 11:06:14 Influenza, high-dose, quadrivalent, PF 1 completed Not Available [facility] 11/09/2024 12:44:40 COVID-19, mRNA, LNP-S, PF, 100 mcg/0.5mL dose or 50 mcg/0.25mL dose 1 completed Yudith Ward null, [facility] 11/30/2024 11:06:14 COVID-19, mRNA, LNP-S, PF, 100 mcg/0.5mL dose or 50 mcg/0.25mL dose 1 completed Not Available [facility] 11/09/2024 12:44:40 zoster recombinant 1 completed Not Available [facility] 11/09/2024 12:44:40 Influenza, high-dose, quadrivalent, PF 2 completed Not Available [facility] 11/09/2024 12:44:40 Pneumococcal conjugate PCV20, polysaccharide [id number] conjugate, adjuvant, PF 3 completed Yudith Ward null, [facility] 11/30/2024 11:06:14 zoster recombinant 3 completed Yudith Ward null, [facility] 11/30/2024 11:06:14 influenza, unspecified formulation 5 completed Yudith Ward null, [facility] 11/30/2024 11:06:14 Influenza, adjuvanted, quadrivalent, PF 3 completed Yudith Ward null, [facility] 11/30/2024 11:06:14 RSV, bivalent, protein subunit RSVpreF, diluent reconstituted, 0.5 mL, PF 5 completed Angi Stafford null, [facility] 11/10/2024 13:54:36 Influenza, adjuvanted, trivalent, PF 4 completed Yudith Ward null, [facility] 11/30/2024 11:06:14 Influenza, split virus, trivalent, PF 5 completed Yudith Ward null, [facility] 11/30/2024 11:06:14 Influenza, high-dose, trivalent, PF 5 completed Not Available [facility] 08/18/2025 13:46:42 Past Encounters Encounter ID Performer Location Encounter Start Date Encounter Closed Date Diagnosis/Indication Diagnosis SNOMED-CT Code Diagnosis ICD10 Code Diagnosis IMO Codes Diagnosis Note [id number] MORE Velasco [id number] A_PCP [address] [place] [id number] 08/18/2025 13:45:49 08/18/2025 14:41:25 Well controlled type 2 diabetes mellitus 053659689 E11.9 633821 Essential hypertension 66654684 I10 Abdominal aortic atherosclerosis 675644147 I70.0 Venous ins ufficiency of lower limb 983889630 I87.2 Insulin tr eated type 2 diabetes mellitus 235785125 E11.29 Chronic ki dney disease stage 3A 334951417 N18.31 Spasm 36238738 M62.838 23296 Type 2 clyde betes mellitus without complication 608872638 E11.9 General ex amination of patient 556429277 Z00.00 6902816 Health Concerns Section Related Observation LastModified by Organization Detai ls LastModified Time None Recorded Concern Status LastModified by Organization Details LastModified Time None Recorded Payers Encounter Date Sequence Insurance Name Policy Number Policy Gomez Covered Member ID Gomez Member ID Guarantor Name 08/18/2025 1 [employer] (MEDICARE REPLACEMENT /ADVANTAGE - HMO) [id number] 1 Hemalatha Cuello [id number] Hemalatha Cuello Notes Date Note Type Note Provider Name and Address Organization Details Recorded Time 08/18/2025 text/html ROS as noted in the HPI History of Present IllnessPatient missed yesterday's appt, came in thinking appt was for today. Asked for quick visit. Hemalatha Cuello is a patient with diabetes, kidney disease, and multiple musculoskeletal conditions who presents for follow-up of her chronic conditions and discussion of worsening leg symptoms and muscle spasms.The patient reports good diabetes control on her current regimen of Tresiba and NovoLog. She had reduced her NovoLog dose from 20 units to 10 units due to medication access issues with [facility] pharmacy, but her blood sugars remain well controlled at the lower dose. She continues to check her blood sugars regularly.She is experiencing significant mobility limitations, describing that she cannot walk far before her legs feel like they're made out of concrete. She has been evaluated by top edge beveler who recommended compression socks, though she reports the compression socks are not helping with her leg pain. She expressed frustration with the vascular evaluation, stating that the findings described by the specialists did not match her symptoms - specifically that they told her only her right foot was purple when both feet are purple, and that her right leg was swelling when it is actually her left leg that swells to three times the size of her right.The patient is experiencing severe nighttime muscle spasms that are different from her previous occasional leg cramps. She describes these as starting like a little ripple and then becoming a full-blown tsunami within seconds, making her legs feel like they are curling up the wrong way. These spasms are so severe they prevent her from sleeping, and she cannot lie on her back due to pain that radiates down her left leg, which she suspects may be sciatica. She has never tried muscle relaxers for these symptoms.She continues to take gabapentin for diabetic neuropathy in her feet, noting that when she tried to stop the nighttime dose, her neuropathy symptoms returned after about a week, so she resumed taking two pills at night. She distinguishes between the neuropathy pain in her feet and the muscle spasms, stating they are totally different types of pain.The patient has been attending physical therapy for her spinal issues. Recent imaging showed bulging discs at almost every level of her spine, which she attributes to having a genetic predisposition and a lifetime of physical work. She has upcoming appointments with a neurosurgeon on September 13 for spinal stenosis evaluation, and a delayed shoulder MRI scheduled for September 03 due to the need for a special MRI machine compatible with the metal in her shoulders.She also reports issues with a recent dental procedure where she had a tooth extracted that had broken below the gum line. Following the extraction, sharp bone protruded through her gum requiring additional surgical intervention involving what she described as a hammer and chisel to remove excess bone. She experienced significant jaw pain for two weeks following this procedure and is concerned about potential damage to her other teeth. She needs an implant but is concerned about the cost.The patient requires a new prescription for compression socks as her insurance requires a written prescription and does not cover her current pharmacy. She also needs a refill of her NovoLog insulin.Review of SystemsCardiovascular : Positive for bilateral leg discoloration and swellingMusculoskelet al: Positive for leg pain, positive for legs feeling like concrete when walking, positive for muscle spasms at night, positive for sciatica-like pain in left leg when lying down, positive for inability to lie on back due to pain radiating down leg, positive for jaw pain following dental procedure.Neurologica l: Positive for diabetic neuropathy in feet, improved with gabapentin.Remaining relevant ROS negative MORE Velasco [address] [place] [address], [phone], [facility] - [facility] 08/18/2025 21:33:58 OBGyn Episode No OBEpisode recorded.
--- OUTSIDE RECORDS SUMMARY | 2025-09-08 22:02 | XMS_ITS | Encounter Summary ---
Author Organization [facility] Address [address] [place] [address] Care Team Providers Care Retail Client Solutions Consultant Name Role Phone Katie Turner Primary Care Provider [phone] Harley Ly MD Unavailable [phone] Encounter Details Date Type Department [facility] Description 08/14/2021 Scanned Document [facility] [place] [address] [place] [address] Pulmonary, Scan Social History Tobacco Use Types [...] have Coronavirus / COVID-19? No / Unsure 08/08/2021 2:56 PM EST documented as of this encounter Plan of Treatment Upcoming Encounters Date Type Department Care Team [facility] Description 09/20/2025 9:30 AM EST Appointment [facility] Heart & V[facility] [place] [address] [place] [address] Harley Ly MD [address] [place] [address] documented as of this encounter Goals Goal [...] on filedocumented in this encounter Care Teams Retail Client Solutions Consultant Relationship Specialty Start Date End Date Katie Turner PA PCP - General 04/03/16 Harley Ly MD [address] [place] [address] Primary Assembler And Tester Electronics Cardiovascular Disease 07/27/25 documented as of this encounter
--- OUTSIDE RECORDS SUMMARY | 2025-09-08 22:02 | XMS_ITS | Encounter Summary ---
Author Organization [facility] Address [address] [place] [address] Care Team Providers Care Senior Label Specialist Name Role Phone Katie Turner Primary Care Provider [phone] Harley Ly MD Unavailable [phone] Encounter Details Date Type Department Care Team ([facility] Contact Info) Description 08/09/2021 Scanned Document [facility] [place] [address] [place] [address] Pulmonary, Scan Social History Tobacco Use Types [...] Upcoming Encounters Date Type Department Care Team ([facility] Contact Info) Description 09/20/2025 9:30 AM EST Appointment [facility] [place] [address] [place] [address] Harley Ly MD [address] [place] [address] documented as of this encounter Goals Goal [...] on filedocumented in this encounter Care Teams Senior Label Specialist Relationship Specialty Start Date End Date Katie Turner PA PCP - General 04/03/16 Harley Ly MD [address] [place] [address] Primary Grease Remover Cardiovascular Disease 07/27/25 documented as of this encounter
--- OUTSIDE RECORDS SUMMARY | 2025-09-08 22:02 | XMS_ITS | Encounter Summary ---
Author Organization [facility] Address [address] [place] [address] Care Team Providers Care Aircraft Refueler Name Role Phone Katie Turner Primary Care Provider [phone] Harley Ly MD Unavailable [phone] Encounter Details Date Type Department Care Team ([facility] Contact Info) Description 11/09/2021 Scanned Document [facility] Pulmonary [place] [address] [place] [address] Tevin Mcdaniels MD [address] [facility] [address] [place] [address] Social History Tobacco Use Types Packs/Day Years [...] have Coronavirus / COVID-19? No / Unsure 11/09/2021 8:38 AM EST documented as of this encounter Plan of Treatment Upcoming Encounters Date Type Department Care Team (Late st Contact Info) Description 09/20/2025 9:30 AM EST Appointment [facility] Heart & Vascular [place] [address] [address] Harley Ly MD [address] [place] [address] documented as of this encounter Goals Goal Patient Goal Type Associated Problems Recent Progress Patient-Stated? Author Cut out extra servings Diet No Evelyn Cruz MA PT LTG 1 Physical Therapy No Isabel Calderon PT Note: In 10 weeks the patient will be independent with HEP. PT LTG 2 Physical Therapy No Isabel Caldreon, PT Note: In 10 weeks the patient [...] on filedocumented in this encounter Care Teams Aircraft Refueler Relationship Specialty Start Date End Date Katie Turner PA PCP - General 04/03/16 Harley Ly MD [address] [place] [address] Primary Planer Offbearer Cardiovascular Disease 07/27/25 documented as of this encounter
--- OUTSIDE RECORDS SUMMARY | 2025-09-08 22:02 | XMS_ITS | Continuity of Care Document ---
Author Organization [facility], [id number] Address [address] [place] [address] Assessment Encounter Date Assessment Date Assessment LastModified by Organization Details LastModified Time 06/17/2025 06/17/2025 Patient verbally consented to participate in a telehealth visit today. Prior to visit patient was offered a face to face encounter as well but preferred telemedicine. The patient is aware that if at any point they or the provider feel the visit is in not adequate they can opt for scheduling a face to face visit. Verbal consent for this telehealth visit was obtained after limitations of telehealth were discussed with the patient. Risk of using a telemedicine provider include limited overall physical examination findings which may be difficult with diagnostic accuracy. OV declined Video [place] Muscle pain/cramping, severe No weakness No RLS Partial improvement off of statin --> remain off rosuvastatin, continue Repatha 140 mg every 2 weeks (atherosclerosi s) Check vitamin D, electrolytes, renal function She [...] statin Cont Repatha 140 q 2 weeks The patient is advised to follow up for any new or worsening symptoms at any time, symptom recurrence after completing therapy or other concerns Continue with prescribed medication adjustments, and adhere to the recommended management plans for each condition. [email or web address] Not available 06/17/2025 17:37:15 Plan of Treatment Reminders Order Date Submit Date Provider Last Modified By Organization Details Last Modified Time Details Appointments LAB WORK 5 2025 07:20A M SMA Nurse Not available Not available Not available PHYSICAL 45 2025 01:45P M MORE Velasco Not available Not available Not available Lab vitamin D, 25-hydro xy, total, serum 2024 025 [facility], [address], [place], [address], 06/18/2025 23:04:29 PTH (parathy roid hormone) , intact + calcium, serum or plasma 2024 025 [facility], [address], [place], [address], 06/18/2025 23:04:26 magnesiu m, serum or plasma 2024 025 [facility], [address], [place], [address], 06/18/2025 23:04:27 CMP, serum or plasma 2024 025 [facility], [address], [place], [address], 06/18/2025 23:04:27 CBC w/ auto diff 2024 025 [facility], [address], [place], [address], 06/18/2025 23:04:28 CK (creatin e kinase), total, serum 2024 025 [facility], [address], [place], [address], 06/18/2025 23:04:28 Referral None recorded . Procedures None recorded . Surgeries None recorded . Imaging None recorded . Medication Orders None recorded . Patient TargetsNo targets recorded. Patient InstructionsNo instructions recorded. Reason for Referral None Reported. Results Created Date Observation Date Name Description Value Unit Range Abnormal Flag Note LastModifiedBy Organization Detail LastModifiedTime 05/19/20 25 05/20/2025 ALBUM INRYANN URINE W/CRE ATINI NE creatinine, random urine 99 mg/dL 20-275 normal Not Available [facility] [place] [facility] [address], [place], [address], 05/20/2025 18:41:44 05/19/20 25 05/20/2025 ALBUM INCHRISTINEO M URINE W/CRE ATINI NE albumin, urine 5.0 mg/dL see note: normal Refer ence Range : Refer ence Range Not estab lishe d Not Available [facility] [address], [place], [address], 05/20/2025 18:41:44 05/19/20 25 05/20/2025 ALBUM INCHRISTINEO M URINE W/CRE ATINI NE albumin/crea tinine ratio, random urine 51 mg/g_ creat <30 high The ADA defin [...] a diagn ostic categ ory. Not Available [facility] [address], [place], [address], 05/20/2025 18:41:44 06/18/20 25 06/21/2025 PTH, INTAC T (ICMA ) AND IONIZ ED CALCI UM parathyroid hormone, intact 65 pg/mL 16-77 normal Inter preti ve Guide Intac t PTH Calci um ----- ----- ----- --- ----- ----- ----- -- Krys l Parat hyroi d Krys l Krys l Hypop antoni yroid ism Low or Low Krys l Low Hyper parat hyroi dism Prima ry Krys l or High High Secon herman High Krys l or Low Terti evy High High Non-P antoni yroid Hyper calce jackeline Low or Low Krys l High Not Available [facility] [address], [place], [address], 06/21/2025 17:09:59 06/18/20 25 06/21/2025 PTH, INTAC T (ICMA ) AND IONIZ ED CALCI UM calcium 9.6 mg/dL 8.6-10 .4 normal Not Available [facility] [address], [place], [address], 06/21/2025 17:09:59 06/18/20 25 06/21/2025 PTH, INTAC T (ICMA ) AND IONIZ ED CALCI UM calcium, ionized 5.3 mg/dL 4.7-5. 5 normal Not Available [facility] [address], [place], [address], 06/21/2025 17:09:59 06/18/20 25 06/19/2025 MAGNE SIUM magnesium 2.0 mg/dL 1.5-2. 5 normal Not Available [facility] [address], [place], [address], 06/19/2025 08:39:23 06/18/20 25 06/19/2025 COMPR EHENS ELISE METAB OLIC PANEL glucose 93 mg/dL 65-139 normal Non-f astin g refer ence inter cliff Not Available [facility] [address], [place], [address], 06/19/2025 08:39:24 06/18/20 25 06/19/2025 COMPR EHENS ELISE METAB OLIC PANEL urea nitrogen (BUN) 20 mg/dL 7-25 normal Not Available [facility] [address], [place], [address], 06/19/2025 08:39:24 06/18/20 25 06/19/2025 COMPR EHENS ELISE METAB OLIC PANEL creatinine 1.26 mg/dL 0.60-1 .00 high Not Available [facility] [address], [place], [address], 06/19/2025 08:39:24 06/18/20 25 06/19/2025 COMPR EHENS ELISE METAB OLIC PANEL eGFR 46 mL/mi n/1.7 3m2 > or = 60 low Not Available [facility] [address], [place], [address], 06/19/2025 08:39:24 06/18/20 25 06/19/2025 COMPR EHENS ELISE METAB OLIC PANEL BUN/creatini ne ratio 16 (calc ) 6-22 normal Not Available [facility] [address], [place], [address], 06/19/2025 08:39:24 06/18/20 25 06/19/2025 COMPR EHENS ELISE METAB OLIC PANEL sodium 142 mmol/ L 135-14 6 normal Not Available [facility] [address], [place], [address], 06/19/2025 08:39:24 06/18/20 25 06/19/2025 COMPR EHENS ELISE METAB OLIC PANEL potassium 4.5 mmol/ L 3.5-5. 3 normal Not Available [facility] [address], [place], [address], 06/19/2025 08:39:24 06/18/20 25 06/19/2025 COMPR EHENS ELISE METAB OLIC PANEL chloride 105 mmol/ L 98-110 normal Not Available [facility] [place] [facility] [address], [place], [address], 06/19/2025 08:39:24 06/18/20 25 06/19/2025 COMPR EHENS ELISE METAB OLIC PANEL carbon dioxide 29 mmol/ L 20-32 normal Not Available [facility] [place] [facility] [address], [place], [address], 06/19/2025 08:39:24 06/18/20 25 06/19/2025 COMPR EHENS ELISE METAB OLIC PANEL calcium 9.6 mg/dL 8.6-10 .4 normal Not Available [facility] [address], [place], [address], 06/19/2025 08:39:24 06/18/20 25 06/19/2025 COMPR EHENS ELISE METAB OLIC PANEL protein, total 6.0 g/dL 6.1-8. 1 low Not Available [facility] [address], [place], [address], 06/19/2025 08:39:24 06/18/20 25 06/19/2025 COMPR EHENS ELISE METAB OLIC PANEL albumin 3.9 g/dL 3.6-5. 1 normal Not Available [facility] [address], [place], [address], 06/19/2025 08:39:24 06/18/20 25 06/19/2025 COMPR EHENS ELISE METAB OLIC PANEL globulin 2.1 g/dL_ (calc ) 1.9-3. 7 normal Not Available [facility] [address], [place], [address], 06/19/2025 08:39:24 09/19/06/19/2025 COMPR EHENS ELISE METAB OLIC PANEL albumin/glob ulin ratio 1.9 (calc ) 1.0-2. 5 normal Not Available [facility] [address], [place], [address], 06/19/2025 08:39:24 06/18/20 25 06/19/2025 COMPR EHENS ELISE METAB OLIC PANEL bilirubin, total 0.3 mg/dL 0.2-1. 2 normal Not Available [facility] [address], [place], [address], 06/19/2025 08:39:24 06/18/20 25 06/19/2025 COMPR EHENS ELISE METAB OLIC PANEL alkaline phosphatase 87 U/L 37-153 normal Not Available [facility] [address], [place], [address], 06/19/2025 08:39:24 06/18/20 25 06/19/2025 COMPR EHENS ELISE METAB OLIC PANEL AST 24 U/L 10-35 normal Not Available [facility] [address], [place], [address], 06/19/2025 08:39:24 06/18/20 25 06/19/2025 COMPR EHENS ELISE METAB OLIC PANEL ALT 26 U/L 6-29 normal Not Available [facility] [address], [place], [address], 06/19/2025 08:39:24 06/18/20 25 06/19/2025 CREAT INE KINAS E, TOTAL creatine kinase, total 207 U/L 18-225 normal Not Available [facility] [address], [place], [address], 06/19/2025 08:39:25 06/18/20 25 06/18/2025 CBC (INCL UDES DIFF/ PLT) white blood cell count 6.7 thous and/u L 3.8-10 .8 normal Not Available [facility] [place] [facility] [address], [place], [address], 06/18/2025 23:04:28 06/18/20 25 06/18/2025 CBC (INCL UDES DIFF/ PLT) red blood cell count 4.75 kj on/uL 3.80-5 .10 normal Not Available [facility] [place] [facility] [address], [place], [address], 06/18/2025 23:04:28 06/18/20 25 06/18/2025 CBC (INCL UDES DIFF/ PLT) hemoglobin 14.1 g/dL 11.7-1 5.5 normal Not Available [facility] [place] [facility] [address], [place], [address], 06/18/2025 23:04:28 06/18/20 25 06/18/2025 CBC (INCL UDES DIFF/ PLT) hematocrit 43.0 % 35.0-4 5.0 normal Not Available [facility] [place] [facility] [address], [place], [address], 06/18/2025 23:04:28 06/18/20 25 06/18/2025 CBC (INCL UDES DIFF/ PLT) MCV 90.5 fL 80.0-1 00.0 normal Not Available [facility] [place] [facility] [address], [place], [address], 06/18/2025 23:04:28 06/18/20 25 06/18/2025 CBC (INCL UDES DIFF/ PLT) MCH 29.7 pg 27.0-3 3.0 normal Not Available [facility] [address], [place], [address], 06/18/2025 23:04:28 0906/18/2025 CBC (INCL UDES DIFF/ PLT) MCHC 32.8 g/dL 32.0-3 6.0 normal For adult s, a sligh t decre ase in the calcu lated MCHC value (in the range of 30 to 32 g/dL) is most likel y not clini carroll signi ficsara t; howev er, it shoul d be inter prete d with cauti on in corre latio n with other red cell lora eters and the patie nt's clini geraldine condi tion. Not Available [facility] [place] [facility] [address], [place], [address], 06/18/2025 23:04:28 06/18/20 25 06/18/2025 CBC (INCL UDES DIFF/ PLT) RDW 12.9 % 11.0-1 5.0 normal Not Available [facility] [place] [facility] [address], [place], [address], 06/18/2025 23:04:28 06/18/20 25 06/18/2025 CBC (INCL UDES DIFF/ PLT) platelet count 282 thous and/u L 140-40 0 normal Not Available [facility] [place] [facility] [address], [place], [address], 06/18/2025 23:04:28 06/18/20 25 06/18/2025 CBC (INCL UDES DIFF/ PLT) MPV 9.1 fL 7.5-12 .5 normal Not Available [facility] [place] [facility] [address], [place], [address], 06/18/2025 23:04:28 06/18/20 25 06/18/2025 CBC (INCL UDES DIFF/ PLT) absolute neutrophils 4516 cells /uL 1500-7 800 normal Not Available [facility] [place] [facility] [address], [place], [address], 06/18/2025 23:04:28 06/18/20 25 06/18/2025 CBC (INCL UDES DIFF/ PLT) absolute lymphocytes 1253 cells /uL 850-39 00 normal Not Available [facility] [place] [facility] [address], [place], [address], 06/18/2025 23:04:28 06/18/20 25 06/18/2025 CBC (INCL UDES DIFF/ PLT) absolute monocytes 717 cells /uL 200-95 0 normal Not Available [facility] [place] [facility] [address], [place], [address], 06/18/2025 23:04:28 06/18/20 25 06/18/2025 CBC (INCL UDES DIFF/ PLT) absolute eosinophils 168 cells /uL 15-500 normal Not Available [facility] [address], [place], [address], 06/18/2025 23:04:28 06/18/20 25 06/18/2025 CBC (INCL UDES DIFF/ PLT) absolute basophils 47 cells /uL 0-200 normal Not Available [facility] [address], [place], [address], 06/18/2025 23:04:28 06/18/20 25 06/18/2025 CBC (INCL UDES DIFF/ PLT) neutrophils 67.4 % normal Not Available [facility] [address], [place], [address], 06/18/2025 23:04:28 06/18/20 25 06/18/2025 CBC (INCL UDES DIFF/ PLT) lymphocytes 18.7 % normal Not Available [facility] [address], [place], [address], 06/18/2025 23:04:28 06/18/20 25 06/18/2025 CBC (INCL UDES DIFF/ PLT) monocytes 10.7 % normal Not Available [facility] [address], [place], [address], 06/18/2025 23:04:28 06/18/20 25 06/18/2025 CBC (INCL UDES DIFF/ PLT) eosinophils 2.5 % normal Not Available [facility] [address], [place], [address], 06/18/2025 23:04:28 06/18/20 25 06/18/2025 CBC (INCL UDES DIFF/ PLT) basophils 0.7 % normal Not Available [facility] [address], [place], [address], 06/18/2025 23:04:28 06/18/20 25 06/21/2025 VITAM IN D,25- OH,TO Nick PAIZ A vitamin D,25-oh,tota l,ia 42 NG/mL 30-100 normal Vitam in D Statu s 25-OH Vitam in D: Defic iency : <20 ng/mL Insuf ficie ncy: 20 - 29 ng/mL Optim al: > or = 30 ng/mL For 25-OH Vitam in D testi ng on patie nts on D2-dawkins pplem entat ion and patie nts for whom quant itati on of D2 and D3 fract ions is requi red, the [facility] Assur eD(TM ) 25-OH VIT D, (D2,D 3), LC/MS /MS is recom gwendolyn d: order code 81677 (annika ents >2yrs ). See Note [address] to have a coUrbanizeli flori copy faxed has been kale freyedg ed. [place]: [phone] Note 1 For addit ional infor viktoria chambers refer to http: //adia Thomas gnost ics.c om/fa q/FAQ 199 (This link is being provi ded for infor anajli mike/ educbernabe tovar purpo ses only. ) Not Available [facility] [address], [place], [address], 06/21/2025 17:10:03 06/07/20 25 02/26/2025 CT, adren al, w/ wo contr ast No observ ation record ed. [email or web address] [facility] [place] [address], [place], [address], 06/13/2025 12:12:36 07/12/2007/12/2025 XR, cervi geraldine spine , 2 or 3 view No observ ation record ed. [facility] [place] [address], [place], [address], 07/18/2025 12:33:16 07/30/20 25 07/30/2025 MRI, shoul elizabet, w/o contr ast No observ ation record ed. [email or web address] [facility] [place] [address], [place], [address], 08/01/2025 20:21:20 08/09/20 25 07/30/2025 MRI, cervi cotho racol umbar spine , w/o contr ast No observ ation record ed. [email or web address] [facility] [place] [address], [place], [address], 08/15/2025 18:45:33 09/06/20 25 US, duple x, abdom en No observ ation record ed. [email or web address] Not Available 09/06 14:29:09 Result Notes None recorded. Problems Name Problem SNOMED Code Status Onset Date Resolution Date Notes Provider Name and Address Organization Details Recorded Time Hypersom kranthi [id number] Active 2014 Hypersom nolence; SHX4Wifc ription: Hypersom nolence; DJN89Mwj cription : Hypersom nolence; dlname: Aliyah; dfname: Lana ; dminit: A; Physicia n_Suffix : PA-C; Physicia n_Phone: tel:[phone]; Physicia n_Fax: fax:[phone]; Physicia n_Specia lty: Neurolog y; Physicia n_Addr1: [address]; Physicia n_Addr2: [address]; Physicia n_City: [facility]; Physicia n_State: [place]; Physicia n_Postal Code: [id number]; NPI: [id number]; Not Available [employer] 11:52:33 Hypersom kranthi with sleep apnea 17987806 Active 2014 Sleep apnea with hypersom nolence; SZU7Wopd ription: Sleep apnea with hypersom nolence; AVR62Ula cription : Sleep apnea with hypersom nolence; dlname: Arslan; dfname: Tevin; dminit: Purvi; Physicia n_Suffix : ; Physicia n_Phone: tel: [phone]; Physicia n_Fax: fax:[phone]; Physicia n_Specia lty: Pulmonar y Disease; Physicia n_Addr1: [address]; Physicia n_Addr2: [address]; Physicia n_City: [facility]; Physicia n_State: [place]; Physicia n_Postal Code: [id number]; NPI: [id number]; Not Available [employer] 11:52:32 Electroc ardiogra m abnormal 605172893 Active 2015 Abnormal EKG; UTV1Qmdp ription: Abnormal EKG; WEI60Oku cription : Abnormal EKG; dlname: Razia; dfname: Marty; Physicia n_Suffix : ; Physicia n_Phone: tel:[phone]; Physicia n_Fax: fax:[phone]; Physicia n_Specia lty: Cardiolo gy; Physicia n_Addr1: [address] [facility]; Physicia n_Addr2: [address]; Physicia n_City: [place] ; Physicia n_State: [place]; Physicia n_Postal Code: [address]; NPI: [id number]; Not Available [facility] 5 11:52:30 History of surgery for cerebral aneurysm 260381604 Active 2015 H/O cerebral aneurysm repair; XLJ4Yanc ription: H/O cerebral aneurysm repair; XHA78Gdv cription : H/O cerebral aneurysm repair; NPI: [id number]; Not Available [facility] 5 11:52:31 Essentia l hyperten michaelle 24747559 Active 2015 Essentia l hyperten michaelle; DLT7Nmwl ription: Essentia l hyperten michaelle; QTN70Xrn cription : Essentia l hyperten michaelle; NPI: [id number]; Not Available [facility] 11:52:35 Kidney stone 53179555 Active 2017 Nephroli thiasis; GNV8Fexz ription: Nephroli thiasis; MBV19Sek cription : Nephroli thiasis; dlname: Dani; dfname: Radha; Physicia n_Suffix : [place]; Physicia n_Phone: [phone]; Physicia n_Fax: fax:[phone]; Physicia n_Addr1: [address]; Physicia n_Addr2: [address]; Physicia n_City: [place] ; Physicia n_State: [place]; Physicia n_Postal Code: [id number]; Not Available [facility] 5 11:52:31 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 [id number] 931354 Active 2017 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 on EMG/NCV 12/30/2016 ; BQP4Dlfw ription: Neuropat hy involvin g both lower extremit ies; TPJ80Tkd cription : Neuropat hy involvin g both lower extremit ies; NPI: [id number]; Not Available [facility] 5 11:52:33 Abdomina l aortic atherosc lerosis 166856555 Active 2017 Abdomina l aortic atherosc lerosis on CT 06/2017; CYV4Fpem ription: Abdomina l aortic atherosc lerosis; ZJZ88Zil cription : Abdomina l aortic atherosc lerosis; NPI: [id number]; Not Available [facility] 5 11:52:29 Obstruct elise sleep apnea syndrome 86320807 Active 2017 Obstruct elise sleep apnea on CPAP; KFL8Cltx ription: Obstruct elise sleep apnea on CPAP; DYI90Jit cription : Obstruct elise sleep apnea on CPAP; NPI: [id number] 42; Not Available [facility] 5 11:52:38 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 54958833 Active 2017 DDD (degener ative disc disease) , lumbosac ral; IEZ9Oimy ription: DDD (degener ative disc disease) , lumbosac ral; SUP28Ohy cription : DDD (degener ative disc disease) , lumbosac ral; NPI: [id number]; Not Available [facility] 5 11:52:34 Synovial osteocho ndromato sis 714240996 Active 2017 Osteocho ndromato sis, synovial (right shoulder ); RJI6Yyfi ription: Osteocho ndromato sis, synovial ; LAQ77Unj cription : Osteocho ndromato sis, synovial ; NPI: [id number] 42; Not Available [facility] 5 11:52:36 Bilatera l trochant rita bursitis [id number] 338031 Active 2017 Trochant rita bursitis of both hips; EAF9Nzba ription: Trochant rita bursitis of both hips; QRE57Zou cription : Trochant rita bursitis of both hips; NPI: [id number] 42; Not Available [facility] 5 11:52:38 Hypergly cemia due to type 2 diabetes mellitus 77316625882 9109 Active 2018 Type 2 diabetes mellitus with hypergly cemia, with long-ter m current use of insulin; KIJ5Iddg ription: Type 2 diabetes mellitus with hypergly cemia, with long-ter m current use of insulin; HHZ51Gga cription : Type 2 diabetes mellitus with hypergly cemia, with long-ter m current use of insulin; NPI: [id number] 42; Not Available [facility] 5 11:52:34 Spinal stenosis of lumbar region 60283251 Active 2018 Spinal stenosis of lumbar region with neurogen ic claudica tion; KYX5Cfko ription: Spinal stenosis of lumbar region with neurogen ic claudica tion; WHR76Cqr cription : Spinal stenosis of lumbar region with neurogen ic claudica tion; NPI: [id number] 42; Not Available [facility] 5 11:52:36 Chronic obstruct elise pulmonar y disease 51851800 Active 2018 COPD (chronic obstruct elise pulmonar y disease) ; SZR9Pebl ription: COPD (chronic obstruct elise pulmonar y disease) ; CJT08Zvd cription : COPD (chronic obstruct elise pulmonar y disease) ; dlname: Viet; dfname: Victor Manuel; Physicia n_Suffix : MD; Physicia n_Phone: tel: [phone]; Physicia n_Fax: fax: [phone]; Physicia n_Specia lty: [facility] ; Physicia n_Addr1: [address] [place] [address]; Physicia n_Addr2: [facility]; Physicia n_City: [place] ; Physicia n_State: [place]; Physicia n_Postal Code: [address]; NPI: [id number]; Not Available [facility] 5 11:52:32 Pneumoni a 923438498 Active 2018 Pneumoni a 12/2018; KJX3Yxgf ription: Pneumoni a; GYI73Mxu cription : Pneumoni a; NPI: [id number] 42; Not Available [facility] 5 11:52:30 Sepsis 22839209 Completed 201805/19/2025 Sepsis 12/2018 MORE Velasco [address] [place] [address], [phone] , [facility] 5 19:24:41 Acute respirat ory failure 32478566 Completed 201802/10/2025 Acute respirat ory failure with hypoxia 12/2018 MORE Velasco [address] [place] [address], [phone] , [facility] - [facility] 5 17:03:38 Trochant rita bursitis of right hip [id number] 9100 Active 2018 Trochant irta bursitis of right hip; PVI6Kohq ription: Trochant rita bursitis of right hip; URB29Akp cription : Trochant rita bursitis of right hip; dlname: Luis Fernando; dfname: Quinn; Physicia n_Suffix : DARCI MENDES; Not Available [facility] 5 11:52:38 Calcific ation of coronary artery 048917616 Active 2018 Extensiv e coronary artery calcific ation seen on CTA chest 01/01/2019 ; ELB6Lekj ription: Coronary artery calcific ation seen on CAT scan; BWR53Dzb cription : Coronary artery calcific ation seen on CAT scan; NPI: [id number] 42; Not Available [facility] 5 11:52:30 Ex-smoke r 0789254 Active 2018 Former smoker; BBZ2Sjxe ription: Former smoker; CWQ67Lfa cription : Former smoker; NPI: [id number] 42; Not Available [facility] 5 11:52:34 Adenoma of right adrenal gland 70897536238 057015 Active 2018 Adenoma of right adrenal gland on CTA 01/01/2019 ; YYW3Srru ription: Adenoma of right adrenal gland; PGD40Pcp cription : Adenoma of right adrenal gland; NPI: [id number] 42; Not Available [facility] 5 11:52:32 Heart failure with normal ejection fraction 347945809 Active 2018 Heart failure with preserve d ejection fraction , NYHA class I; NIN6Tpon ription: Heart failure with preserve d ejection fraction , NYHA class I; HYA17Eyl cription : Heart failure with preserve d ejection fraction , NYHA class I; NPI: [id number] 42; Not Available [facility] 5 11:52:37 Insulin treated type 2 diabetes mellitus 901488024 Active 2019 Type 2 diabetes mellitus with microalb uminuria , with long-ter m current use of insulin; TQD9Iypr ription: Type 2 diabetes mellitus with microalb uminuria , with long-ter m current use of insulin; SVX47Bxp cription : Type 2 diabetes mellitus with microalb uminuria , with long-ter m current use of insulin; NPI: [id number]; Not Available [facility] 5 11:52:35 Chronic kidney disease stage 3A 884457968 Active 2019 Stage 3a chronic kidney disease; BMX7Tkch ription: Stage 3a chronic kidney disease; BNR30Wic cription : Stage 3a chronic kidney disease; NPI: [id number]; Not Available [facility] 5 11:52:30 Nodule of lung 130282304 Active 2020 Pulmonar y nodule; VJH5Swwy ription: Pulmonar y nodule; MZL54Ocn cription : Pulmonar y nodule; NPI: [id number]; Not Available [facility] 5 11:52:32 Venous insuffic iency of lower limb 476287141 Active 2020 Venous insuffic iency of both lower extremit ies; VBI3Prdw ription: Venous insuffic iency of both lower extremit ies; XKW51Hpe cription : Venous insuffic iency of both lower extremit ies; NPI: [id number]; Not Available [facility] 5 11:52:37 Bilatera l adenoma of adrenal glands 08916650608 625563 Active 2024 MORE Velasco [address] [place] [address], [phone] , [facility] 5 10:06:32 Chronic kidney disease stage 3 435050676 Active 2024 MORE Velasco [address] [place] [address], [phone] , [facility] 5 10:06:34 Uncontro lled type 2 diabetes mellitus 042238675 Active 2024 MORE Velasco [address] [place] [address], [address] , [facility] 5 10:06:37 Acquired hypothyr oidism 892305581 Active 2024 MORE Velasco [address] [place] [address], [phone] , [facility] 5 19:27:40 Problem Notes None recorded. Procedures Surgical History Date Name Laterality Status Provider Name and Address Organization Details Recorded Time 03/19/20 24 Bx breast 1st lesion strtctc completed Not Available [facility] 12/08/2024 04:02:35 08/01/20 22 Colsc flx 1st tndsc dilat completed Not Available [facility] 12/08/2024 04:02:35 09/30/19 11 Bx breast 1st lesion strtctc completed Not Available [facility] 12/08/2024 04:02:35 Anes dx shoulder arthroscopy completed Not Available [facility] 12/08/2024 04:02:35 Anesth lower arm procedure completed Not Available [facility] 12/08/2024 04:02:35 Appendectomy completed Not Available [facility] 12/08/2024 04:02:35 Imaging Results None recorded. Procedure Notes None recorded. Medical Equipment None Reported. Allergies Allergen ID Allergen Name Allergen Category Reaction Reaction Severity Criticality Documentation Date Start Date Code Code System Note Provider Name and Address Organization Details Recorded Time 218 honey bee venom medicatio n anaphylax is Not available Not available 09/07/2024 96474 7 RxNorm Radha Dani null, [facility] 4 12:04:03 2182 BuTrans medicatio n Not available Not available Not available 09/07/2024 11241 1 RxNorm Radha Dani null, [facility] 4 12:13:00 2183 dicyclomi ne medicatio n Not available Not available Not available 09/07/2024 3361 RxNorm Radha Dani null, [facility] 4 12:13:08 2184 loperamid e medicatio n Not available Not available Not available 09/07/2024 6468 RxNorm Radha Dani null, [facility] 4 12:13:17 2185 promethaz ine medicatio n Not available Not available Not available 09/07/2024 8745 RxNorm Radha Dani null, [facility] 4 12:13:24 2186 codeine medicatio n Not available Not available Not available 09/07/2024 2670 RxNorm Radha Dani null, [facility] 4 12:13:28 90724 yellow hornet venom Not available anaphylax is Not available Not available 11/09/20242021 38574 1 RxNorm React ion: Anaph ylaxi s; Not Available [facility] 5 08:12:46 97702 honey bee venom environme nt anaphylax is Not available Not available 11/09/20242017 43891 7 RxNorm React ion: Anaph ylaxi s; Comme nt: dfnam e: Christina; dlnam e: Wagne r; Physi cian_ Addr1 : [address]; Physi cian_ Addr2 : Jarred 6; Physi cian_ City: [facility]; Physi cian_ State : [place]; Physi cian_ Posta lCode : [address] ; Physi cia_ Phone : tel:[phone]; Physi cian_ Fax: fax:+ [phone]; Physi cian_ Suffi x: RN; Physi cian_ Speci alty: Aleksander yang Nurse ; ; Not Available [facility] 5 08:12:46 02620 wasp venoms environme nt anaphylax is Not available Not available 11/09/20242021 06623 RxNorm React ion: Anaph ylaxi s; Not Available [facility] 5 08:12:47 18997 buprenorp satish medicatio n Not available Not available Not available 11/09/20243 1819 RxNorm Comme nt: dfnam e: Adelaida cee; dlnam e: Ed ; Physi cian_ Suffi x: [place]; ; Not Available [facility] 08:12:47 56277 rosuvasta tin medicatio n myalgias (muscle pain) Not available low 08/17/20252024 99738 2 RxNorm Not Available cyndie - [employer] - prod 5 05:08:03 40637 beeswax medicatio n anaphylax is Not available high 08/17/20252015 1356 RxNorm Not Available [employer] - prod 5 05:08:03 Medications [...] glucose TID DX E11.9 2023 active NPI: [id number]; Not Available Not Available Not Available [...] glucose TID DX E11.9 2022 active NPI: [id number] 42; Not Available Not Available Not Available [...] Rd; Physicia n_Addr2: Jarred C; Physicia n_City: [place] ; Physicia n_State: [place]; Physicia n_Postal Code: [address]; NPI: [id number]; Physicia n_Suffix : PA-C; Physicia n_Phone: tel: [phone]; Physicia n_Fax: fax:[phone]; Physicia n_Specia lty: Creative Resource Manager ; Not Available Not Available Not Available [...] Available No t Available FreeStyle Minerva 3 Inchelium 1 Device by Does not apply route continuo us. 2023 active NPI: [id number] 42; Not Available Not Available Not Available FreeStyle Minerva 3 Plus Sensor device ONE EVERY 15 DAYS . active Not Available Not Available No t Available Steffanie 2nd Gen Pen Needle 32 gauge x 5/32 INJECT 1 EACH UNDER THE SKIN 4 TIMES A DAY active Not Available Not Available No t Available Vitals None Recorded Social History None recorded. Functional Status Question [...] Heart attack Nephew: GI problems, FAP Sister: Kathyaysm, AgeAtOnSet: 60; , Breast cancer, AgeAtOnSet: 65; , Cancer, Migraines Medical History Condition Response Obesity Y Hypertension Y Ear or Hearing Problems Y Gynecological HistoryNo gynecological history recorded. Obstetrics History GPAL:G 0 P 0 0 0 0 Immunizations Vaccine Type Date Status Note Provider Nam e and Address Organization Details Recorded Time Influenza, split virus, quadrivalent, PF 8 completed Not Available [facility] 11/09/2024 12:44:39 pneumococcal polysaccharide PPV23 9 completed Not Available [facility] 11/09/2024 12:44:39 Influenza, MDCK, quadrivalent, PF 9 completed Yudith hutton [facility] 11/30/2024 11:06:14 COVID-19, mRNA, LNP-S, PF, 100 mcg/0.5mL dose or 50 mcg/0.25mL dose 1 completed Yudith hutton [facility] 11/30/2024 11:06:14 Influenza, high-dose, quadrivalent, PF 1 completed Not Available [facility] 11/09/2024 12:44:40 COVID-19, mRNA, LNP-S, PF, 100 mcg/0.5mL dose or 50 mcg/0.25mL dose 1 completed Yudith hutton, [facility] 11/30/2024 11:06:14 COVID-19, mRNA, LNP-S, PF, 100 mcg/0.5mL dose or 50 mcg/0.25mL dose 1 completed Not Available [facility] 11/09/2024 12:44:40 zoster recombinant 1 completed Not Available [facility] 11/09/2024 12:44:40 Influenza, high-dose, quadrivalent, PF 2 completed Not Available [facility] 11/09/2024 12:44:40 Pneumococcal conjugate PCV20, polysaccharide MDT677 conjugate, adjuvant, PF 3 completed Yudith Ward null, [facility] 11/30/2024 11:06:14 zoster recombinant 3 completed Yudith Ward null, [facility] 11/30/2024 11:06:14 influenza, unspecified formulation 5 completed Yudith Ward null, [facility] 11/30/2024 11:06:14 Influenza, adjuvanted, quadrivalent, PF 3 completed Yudith Ward null, [facility] 11/30/2024 11:06:14 RSV, bivalent, protein subunit RSVpreF, diluent reconstituted, 0.5 mL, PF 5 completed Angi Stafford null, [facility] 11/10/2024 13:54:36 Influenza, adjuvanted, trivalent, PF 4 completed Yudith Ward null, [facility] 11/30/2024 11:06:14 Influenza, split virus, trivalent, PF 5 completed Yudith Ward null, [facility] 11/30/2024 11:06:14 Influenza, high-dose, trivalent, PF 5 completed Not Available [facility] 08/18/2025 13:46:42 Past Encounters Encounter ID Performer Location Encounter Start Date Encounter Closed Date Diagnosis/Indication Diagnosis SNOMED-CT Code Diagnosis ICD10 Code Diagnosis IMO Codes Diagnosis Note [id number] MORE Velasco [id number] [id number] [address] [place] [phone] 05/19/2025 13:45:09 05/19/2025 15:05:14 Well controlled type 2 diabetes mellitus 523684657 E11.9 453062 Bee sting 156222438 T63. 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 0800667935 27828 E11.65 Essential hypertension 38641248 I10 Abdominal aortic atherosclerosis 439046080 I70.0 Venous ins ufficiency of lower limb 456382888 I87.2 Insulin tr eated type 2 diabetes mellitus 138565935 E11.29 Chronic ki dney disease stage 3A 319353432 N18.31 Chronic ob structive pulmonary disease 75428678 J44.9 Obstructiv e sleep apnea syndrome 60556508 G47.33 Bilateral adenoma of adrenal glands 9208588556 8570529 D35.01 D35.02 [id number] MORE Velasco [id number] A_PCP [address] [place] [phone] 06/17/2025 06:08:44 06/20/2025 14:45:54 Bilateral cramp of muscle of lower limbs 6250297101 1746231 R25.2 39318354 Vitamin D deficiency 347 27250 E55.9 05537 Essential hypertension 75885117 I10 86187 Calcificat ion of coronary artery 235097964 I25.10 Abdominal aortic atherosclerosis 628887749 I70.0 Health Concerns Section Related Observation LastModified by Organization Detai ls LastModified Time None Recorded Concern Status LastModified by Organization Details LastModified Time None Recorded Payers Encounter Date Sequence Insurance Name Policy Number Policy Gomez Covered Member ID Gomez Member ID Guarantor Name 06/17/2025 1 [employer] (MEDICARE REPLACEMENT /ADVANTAGE - HMO) [id number] 1 Hemalatha Cuello [id number] Hemalatha Cuello Notes Date Note Type Note Provider Name and Address Organization Details Recorded Time 06/17/2025 text/html ROS as noted in the HPI History of Present IllnessHemalatha Cuello presents with severe muscle pain and cramping, which began about a week before her recent vacation. The patient had been taking rosuvastatin but discontinued it due to the severe pain. She reports that the pain was so intense that she could barely move from the couch to the bathroom without support. The patient experienced muscle rippling and hand contractions.In response to the pain, Ms. Cuello stopped taking all her medications, including dextroamphetamine, amlodipine, and losartan. She slept for three days and then resumed taking dextroamphetamine due to excessive sleepiness. She reduced her gabapentin intake from two to one pill. The patient reports that after stopping all medications, her pain subsided for two days but then started to return, though not as severely as before.Recently, Ms. Cuello restarted amlodipine and losartan two days ago. She currently takes two gabapentin in the morning and one at night. She also started Mounjaro (tirzepatide) yesterday as prescribed by her respite coordinator to manage her blood sugar levels. The patient received a Repatha injection as an alternative to the statin.Ms. Cuello attended physical therapy, where her blood pressure was initially measured at 160/90, but improved to 120/80 after restarting her medications. During therapy, she experienced muscle spasms and hardening in her legs when attempting exercises. The physical therapist suggested the possibility of an electrolyte imbalance or lingering medication effects.The patient reports ongoing pain, particularly at night, describing a sensation in her legs like the [place]. She plans to consult with a back surgeon in two weeks regarding her symptoms.Review of SystemsMusculoskeletal : Positive for severe muscle pain, muscle spasms, muscle contractions.Remaining relevant ROS negative MORE Velasco [address] [place] [address], [phone], [facility] 06/17/2025 17:37:43 OBGyn Episode No OBEpisode recorded.
--- OUTSIDE RECORDS SUMMARY | 2025-09-08 22:02 | XMS_ITS | Encounter Summary ---
Author Organization [facility] Address [address] [place] [address] Care Team Providers Care Stenographer Secretary Name Role Phone Katie Turner Primary Care Provider [phone] Harley Ly MD Unavailable [phone] Encounter Details Date Type Department Care Team ([facility] Contact Info) Description 08/14/2021 Scanned Document [facility] Pulmonary [address] [place] [phone] Pulmonary, Scan Social History Tobacco Use Types [...] Upcoming Encounters Date Type Department Care Team ([facility] Contact Info) Description 09/20/2025 9:30 AM EST Appointment [facility] [place] [phone] Harley Ly MD [address] [place] [address] documented as of this encounter Goals Goal [...] on filedocumented in this encounter Care Teams Stenographer Secretary Relationship Specialty Start Date End Date Katie Turner PA PCP - General 04/03/16 Harley Ly MD [address] [place] [address] Primary Pilot Plant Supervisor Cardiovascular Disease 07/27/25 documented as of this encounter
--- OUTSIDE RECORDS SUMMARY | 2025-09-08 22:02 | XMS_ITS | Data Portability ---
Author Organization [place] - [employer], autoContract - [facility] Address [address] [place] [address] Assessment Encounter Date Assessment Date Assessment LastModified by Organization Details LastModified Time 11/30/2024 11/30/2024 Type 2 diabetes with hyperglycemia Shared decision making change ozempic 2 to mounjaro 10 fbw and follow up 2m CGM reviewed DM educ scheduled Hypersomnolence, chronic, after craniotomy remote inc dextrostat 10 to 1 qid 360 0R reeval 2m Monitor blood pressure Scheduled to see sleep med Reviewed benefits and risks of stimulant medication. Significant risks include dry mouth insomnia irritability dysphoria diminished appetite weight loss and headaches. Rare instances of cardiovascular side effects, priapism, tic disorders, and misuse/abuse. Patient believes the benefits of this medication outweigh the risks and patient is aware that close monitoring will be required for as long as the patient takes the medication. chronic bladder pressure w cloudy urine UA/UC-->tx if positive The patient is advised to follow up for any new or worsening symptoms at any time, symptom recurrence after completing therapy or other concerns Continue with prescribed medication adjustments, and adhere to the recommended management plans for each condition. [email or web address] Not available 11/30/2024 18:01:11 02/10/2025 02/10/2025 Diabetes Mellitus - Patient's A1c improved from 9.4 to 7.2 in the last three months. - Occasional hypoglycemic episodes reported, particularly in the afternoon (blood glucose in low 80s or high 70s mg/dL). - Current insulin regimen: Tresiba 60 units in morning, NovoLog 15 units in morning, occasional NovoLog at night if blood sugar is high. - Patient also on Mounjaro, helping with glycemic control. - Plan: - Reduce Tresiba to 55 units in the morning - Reduce morning NovoLog to 10 units - Discontinue evening NovoLog - If hypoglycemia persists: - Further reduce Tresiba to 50 units and morning NovoLog to 5 units - If still low, reduce Tresiba to 45 units and discontinue NovoLog completely - Continue Mounjaro (dose not specified) - Monitor blood glucose levels closely, especially for hypoglycemic episodes - Follow up to assess effectiveness of insulin adjustments Chronic Constipation - Longstanding issues with constipation, exacerbated by GLP-1 agonist therapy (Mounjaro). - Recent symptoms: difficulty with bowel movements, sensation of pressure on the bladder. - Bscb-kuk-vpkletn laxatives tried with limited success. - Concern that severe constipation may contribute to bladder pressure symptoms. - Plan: - check TSH w next labs - Perform abdominal X-ray to assess for fecal loading - Conduct bladder ultrasound to evaluate bladder function and residual volume - Initiate bowel lavage with magnesium citrate for complete cleanout - Start Linzess (linaclotide) at 72, taken in morning on empty stomach - Wait 30 minutes before eating after taking Linzess - If ineffective after one week, consider increasing to two tablets - Consider lactulose as alternative if Linzess not tolerated or ineffective - Educate patient on potential side effects, including diarrhea - Follow up to assess effectiveness of constipation management Acute Dental Pain - Patient underwent tooth extraction due to cracked tooth extending below gumline. - Vicodin prescribed post-procedure for pain management. - Plan: - Continue prescribed pain management as directed by oral surgeon - Provide additional gauze for bleeding control - Advise on proper post-extraction care - Follow up with oral surgeon as scheduled for post-operative care and discussion of future implant (in 6 months) Overall, instruct the patient to follow up as needed, especially if symptoms worsen or new concerns arise. Monitor diabetes management closely and adjust treatment as necessary. Ensure proper management of constipation and post-dental procedure care. [email or web address] Not available 02/10/2025 17:04:40 05/19/2025 05/19/2025 MAW NOV Bee sting R hand Persistent itching Medrol Dose Pack T2DM A1C 7.1 (7.2)(prev 9.4) Tresiba 60 qhs Novolog 15 AM only-->inc to 20 Mounjaro 10 Rosuvastatin 20 Losartan 25 DM education completed Foot/eye care plan in place Renal fxn stable Urine microalb/cr followed by nephrology Adrenal adenoma Hypothyroidism MNG Followed by endocrinology [place] CKD 3 Labs to Monica Loja LE [...] vaccination: Patient refused Other vaccinations: Recommend Shingrix; [id number] BMD:*Normal 06/22/2021 at [facility]-->repeat [place] ASCVD risk: Followed by cardiology Amie LDCT: Per Dr. 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 OV declined Video Cyndie Muscle pain/cramping, severe No weakness No RLS [...] the recommended management plans for each condition. [email or web address] Not available 06/17/2025 17:37:15 08/18/2025 08/18/2025 [facility] MAW 08/18/2025 T2DM A1C [...] Adrenal adenoma Hypothyroidism MNG Followed by endocrinology [place] CKD 3 Labs to Monica Loja LE [...] vaccination: Patient refused Other vaccinations: Recommend Shingrix; [id number] BMD:*Normal 06/22/2021 at [facility]-->repeat [place] ASCVD risk: Followed by bethany Holloway LDCT: Per Dr. 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 Not available 08/18/2025 21:31:02 Plan of Treatment Reminders Order Date Submit Date Provider Last Modified By Organization Details Last Modified Time Details Appointments LAB WORK 5 2025 07:20A M [facility] Nurse Not available Not available Not available PHYSICAL 45 2025 01:45P M MORE Velasco Not available Not available Not available Lab vitamin D, 25-hydro xy, total, serum 2024 025 [facility], [address], [place], [address], 06/18/2025 23:04:29 PTH (parathy roid hormone) , intact + calcium, serum or plasma 2024 025 [facility], [address], [place], [address], 06/18/2025 23:04:26 magnesiu m, serum or plasma 2024 025 [facility], [address], [place], [address], 06/18/2025 23:04:27 CMP, serum or plasma 2024 025 [facility], [address], [place], [address], 06/18/2025 23:04:27 CBC w/ auto diff 2024 025 [facility], [address], [place], [address], 06/18/2025 23:04:28 CK (creatin e kinase), total, serum 2024 025 [facility], [address], [place], [address], 06/18/2025 23:04:28 microalb umin/cre atinine, mass ratio, urine 2024 025 [facility], [address], [place], [address], 05/20/2025 18:41:44 HbA1c (hemoglo bin A1c), blood 2024 025 [facility], [address], [place], [address], 05/19/2025 19:28:43 CMP, serum or plasma 2024 025 [facility], [address], [place], [address], 05/19/2025 19:28:43 lipid panel, serum 2024 025 [facility], [address], [place], [address], 05/19/2025 19:28:42 TSH, serum or plasma 2024 025 [facility], [address], [place], [address], 05/12/2025 21:30:40 CMP, serum or plasma 2024 025 [facility], [address], [place], [address], 05/12/2025 21:30:39 lipid panel, serum 2024 025 [facility], [address], [place], [address], 05/12/2025 21:30:38 HbA1c (hemoglo bin A1c), blood 2024 025 [facility], [address], [place], [address], 05/12/2025 21:30:40 microalb umin/cre atinine, mass ratio, urine 2024 025 [facility], [address], [place], [address], 02/10/2025 17:07:04 urinalys is, dipstick 2024 025 [email or web address] p, [address] [place] [address], [address], 11/30/2024 18:29:36 culture, urine 2024 025 [facility], [address], [place], [address], 12/01/2024 22:40:07 CMP, serum or plasma 2024 025 [facility], [address], [place], [address], 02/03/2025 21:16:08 lipid panel, serum 2024 025 [facility], [address], [place], [address], 02/03/2025 21:16:07 microalb umin/cre atinine, mass ratio, urine 2024 025 [place] [facility], [address], [place], [address], 11/30/2024 11:48:08 HbA1c (hemoglo bin A1c), blood 2024 025 [place] [facility], [address], [place], [address], 02/03/2025 21:16:08 Referral None recorded . Procedures None recorded . Surgeries None recorded . Imaging None recorded . Medication Orders methocar bamol 500 mg tablet 2024 [address] [facility] [address] [place], [address], 08/18/2025 14:28:02 Novolog FlexPen U-100 Insulin aspart 100 unit/mL (3 mL) subcutan eous 2024 025 [facility]/Ph[facility]acy #2021, [address] [place], [address], 08/18/2025 14:28:38 Mounjaro 10 mg/0.5 mL subcutan eous pen injector [address] [address] [facility], [place], [address], 05/19/2025 14:33:52 Medrol (Chuy) 4 mg tablets in a dose pack 2024 025 [facility]/Pharmacy #2021, [address] [facility], [place], [address], 06/17/2025 14:20:07 Linzess 72 mcg capsule 20[address] [facility] [address] [place], [address], 02/10/2025 15:13:22 dextroam phetamin e sulfate 10 mg tablet 2024 025 [facility], [address] [facility], [place], [address], 11/30/2024 11:39:05 Mounjaro 10 mg/0.5 mL subcutan eous pen injector 2024 025 [email or web address] [facility], [address] [facility], [place], [address], 11/30/2024 11:38:38 Patient TargetsNo targets recorded. Patient InstructionsNo instructions recorded. Reason for Referral None Reported. Results Created Date Observation Date Name Description Value Unit Range Abnormal Flag Note LastModifiedBy Organization Detail LastModifiedTime 11/02/19 25 11/04/2024 PROTE IN, TOTAL AND PROTE IN ELECT ROPHO RESIS protein, total 6.1 g/dL 6.1-8. 1 normal Not Available [facility] [address], [address], 11/04/2024 12:38:22 11/02/19 25 11/04/2024 PROTE IN, TOTAL AND PROTE IN ELECT ROPHO RESIS albumin 3.5 g/dL 3.8-4. 8 low Not Available [facility] [address], [address], 11/04/2024 12:38:22 11/02/19 25 11/04/2024 PROTE IN, TOTAL AND PROTE IN ELECT ROPHO RESIS alpha 1 globulin 0.2 g/dL 0.2-0. 3 normal Not Available [facility] [address], [address], 11/04/2024 12:38:22 11/02/19 25 11/04/2024 PROTE IN, TOTAL AND PROTE IN ELECT ROPHO RESIS alpha 2 globulin 0.9 g/dL 0.5-0. 9 normal Not Available [facility] [address] [place], [address], 11/04/2024 12:38:22 11/02/19 25 11/04/2024 PROTE IN, TOTAL AND PROTE IN ELECT ROPHO RESIS beta 1 globulin 0.4 g/dL 0.4-0. 6 normal Not Available [facility] [place] [facility] [address], [place], [address], 11/04/2024 12:38:22 11/02/19 25 11/04/2024 PROTE IN, TOTAL AND PROTE IN ELECT ROP RESIS beta 2 globulin 0.4 g/dL 0.2-0. 5 normal Not Available [facility] [place] [facility] [address], [place], [address], 11/04/2024 12:38:22 11/02/19 25 11/04/2024 PROTE IN, TOTAL AND PROTE IN ELECT ROPHO RESIS gamma globulin 0.7 g/dL 0.8-1. 7 low Not Available [facility] [place] [facility] [address], [place], [address], 11/04/2024 12:38:22 11/02/19 25 11/04/2024 PROTE IN, TOTAL AND PROTE IN ELECT ROPHO RESIS interpretati on Consi stent with hypog ammag lobul inemi a. Serum free light chain s or urine immun ofixa tion shoul d be consi dered if plasm a cell dyscr asias are a possi ble clini geraldine diagn osis. Not Available [facility] [place] [facility] [address], [place], [address], 11/04/2024 12:38:22 11/02/19 25 11/04/2024 COMPR EHENS ELISE METAB OLIC PANEL glucose 205 mg/dL 65-99 high Fasti ng refer ence inter cliff For someo ne witho ut known diabe oscar, a gluco se value >125 mg/dL indic ates that they may have diabe oscar and this shoul d be confi rmed with a follo w-up test. Not Available [facility] [place] [facility] [address], [place], [address], 11/04/2024 12:38:23 11/02/19 25 11/04/2024 COMPR EHENS ELISE METAB OLIC PANEL urea nitrogen (BUN) 19 mg/dL 7-25 normal Not Available [email or web address] [place] [facility] [address], [place], [address], 11/04/2024 12:38:23 11/02/19 25 11/04/2024 COMPR EHENS ELISE METAB OLIC PANEL creatinine 1.24 mg/dL 0.50-1 .05 high Not Available [facility] [address], [place], [address], 11/04/2024 12:38:23 11/02/19 25 11/04/2024 COMPR EHENS ELISE METAB OLIC PANEL eGFR 47 mL/mi n/1.7 3m2 > or = 60 low Not Available [facility] [address], [place], [address], 11/04/2024 12:38:23 11/02/19 25 11/04/2024 COMPR EHENS ELISE METAB OLIC PANEL BUN/creatini ne ratio 15 (calc ) 6-22 normal Not Available [facility] [address], [place], [address], 11/04/2024 12:38:23 11/02/19 25 11/04/2024 COMPR EHENS ELISE METAB OLIC PANEL sodium 138 mmol/ L 135-14 6 normal Not Available [email or web address] [address], [place], [address], 11/04/2024 12:38:23 11/02/19 25 11/04/2024 COMPR EHENS ELISE METAB OLIC PANEL potassium 4.1 mmol/ L 3.5-5. [address] [facility] [place] [facility] [address], [place], [address], 11/04/2024 12:38:23 11/02/19 25 11/04/2024 COMPR EHENS ELISE METAB OLIC PANEL chloride 101 mmol/ L 98-[address] [facility] [place] [facility] [address], [place], [address], 11/04/2024 12:38:23 11/02/19 25 11/04/2024 COMPR EHENS ELISE METAB OLIC PANEL carbon dioxide 31 mmol/ L 20-[address] [facility] [place] [facility] [address], [place], [address], 11/04/2024 12:38:23 11/02/19 25 11/04/2024 COMPR EHENS ELISE METAB OLIC PANEL calcium 9.3 mg/dL 8.6-10 .[address] [facility] [place] [facility] [address], [place], [address], 11/04/2024 12:38:23 11/02/19 25 11/04/2024 COMPR EHENS ELISE METAB OLIC PANEL protein, total 6.1 g/dL 6.1-8. 1 normal Not Available [facility] [address], [place], [address], 11/04/2024 12:38:23 11/02/19 25 11/04/2024 COMPR EHENS ELISE METAB OLIC PANEL albumin 3.9 g/dL 3.6-5. 1 normal Not Available [email or web address] [address], [place], [address], 11/04/2024 12:38:23 11/02/19 25 11/04/2024 COMPR EHENS ELISE METAB OLIC PANEL globulin 2.2 g/dL_ (calc ) 1.9-3. 7 normal Not Available [facility] [address], [place], [address], 11/04/2024 12:38:23 11/02/19 25 11/04/2024 COMPR EHENS ELISE METAB OLIC PANEL albumin/glob ulin ratio 1.8 (calc ) 1.0-2. 5 normal Not Available [facility] [address], [place], [address], 11/04/2024 12:38:23 11/02/19 25 11/04/2024 COMPR EHENS ELISE METAB OLIC PANEL bilirubin, total 0.4 mg/dL 0.2-1. 2 normal Not Available [facility] [address], [place], [address], 11/04/2024 12:38:23 11/02/19 25 11/04/2024 COMPR EHENS ELISE METAB OLIC PANEL alkaline phosphatase 70 U/L 37-153 normal Not Available [facility] [address], [place], [address], 11/04/2024 12:38:23 11/02/19 25 11/04/2024 COMPR EHENS ELISE METAB OLIC PANEL AST 21 U/L 10-35 normal Not Available [facility] [address], [place], [address], 11/04/2024 12:38:23 11/02/19 25 11/04/2024 COMPR EHENS ELISE METAB OLIC PANEL ALT 25 U/L 6-29 normal Not Available [facility] [address], [place], [address], 11/04/2024 12:38:23 11/02/19 25 11/04/2024 KAPPA /LORENZO DA LIGHT CHAIN S FREE WITH RATIO , SERUM kappa light chain, free, serum 20.7 mg/L 3.3-19 .4 high Not Available [facility] [place] [facility] [address], [place], [address], 11/04/2024 12:38:23 11/02/19 25 11/04/2024 KAPPA /LORENZO DA LIGHT CHAIN S FREE WITH RATIO , SERUM lambda light chain, free, serum 15.7 mg/L 5.7-26 .3 normal Not Available [facility] [place] [facility] [address], [place], [address], 11/04/2024 12:38:23 11/02/19 25 11/04/2024 KAPPA /LORENZO DA LIGHT CHAIN S FREE WITH RATIO , SERUM kappa/lambda light chains free with ratio, serum 1.32 0.26-1 .65 normal Free kappa /lorenzo da ratio in serum of krys l indiv idual s is 0.26- 1.65. Exces s produ ction of free kappa or lambd a chain s can alter this ratio . Monoc lonal free light chain s are found in serum of patie nts with multi ple myelo ma, Walde nstro m's macro globu linem ia, mu-he aubree chain disea se, prima ry amylo idosi s, light chain depos ition disea se, monoc lonal gammo ana of undet ermin ed signi fican ce, and lymph oprol ifera tive disor ders. Measu remen t of free light chain ta ntrat ion in serum is usefu l for diagn osis, progn osis, monit oring disea se activ ity and follo wing respo nse to thera py of these disor ders. Not Available [facility] [place] [facility] [address], [place], [address], 11/04/2024 12:38:23 11/02/19 25 11/04/2024 HEMOG LOBIN A1C WITH MPG hemoglobin A1C 9.4 %_of_ total _HGB <5.7 high For someo ne witho ut [...] diabe oscar for child radha. Not Available [facility] [place] [facility] [address], [address], 11/04/2024 12:38:23 11/02/19 25 11/04/2024 HEMOG LOBIN A1C WITH MPG mean plasma glucose 257 mg/dL _(geraldine c) Not Available [facility] [place] [facility] [address], [address], 11/04/2024 12:38:23 11/10/19 25 11/10/2024 rapid influ alan virus A + B and SARS CoV + SARS CoV 2 Ag panel , IA, upper respi rator y speci men Flu A Result: negati ve Not Available [id number]_ pc p [address] [place] [address], [phone], 11/10/2024 14:24:31 11/10/19 25 11/10/2024 rapid influ alan virus A + B and SARS CoV + SARS CoV 2 Ag panel , IA, upper respi rator y speci men Flu B Result: negati ve Not Available [id number]_fvp_ pc p [address] [place] [address], [address], 11/10/2024 14:24:31 11/10/19 25 11/10/2024 rapid influ alan virus A + B and SARS CoV + SARS CoV 2 Ag panel , IA, upper respi rator y speci men Covid Result: negati ve Not Available [id number]_ pc p [address] [place] [address], [phone], 11/10/2024 14:24:31 11/10/19 25 11/10/2024 RSV (resp irato ry syncy tial virus ) Ag, nose RSV negati ve Not Available [id number]_ pc p [address] [place] [address], [address], 11/10/2024 14:24:17 12/01/19 25 12/02/2024 CULTU RE, URINE , ROUTI NE culture, urine, routine SEE NOTE abnormal CULTU RE, URINE , ROUTI NE Micro Numbe r: [id number] Test Statu s: Final Speci men Sourc e: Urine Speci men Quali ty: Adequ ate Resul t: Great er than 100,0 00 CFU/m L of Esche jian a coli E.col i ----- ----- ----- - INT NAKUL AMOX/ CLAVU LANAT E S 4 AMP/S ULBAC FLEMING S 4 CEFAZ ANGELINA NR <=4 2 CEFEP DAVID S <=0.1 2 CEFTA ZIDIM E S <=1 CEFTR IAXON E S <=0.2 5 CIPRO FLOXA ASHU S <=0.0 6 GENTA MICIN S <=1 IMIPE NEM S <=0.2 5 LEVOF LOXAC IN S <=0.1 2 MEROP ENEM S <=0.2 5 NITRO FURAN TOIN I 64 PIP/T AZOBA CTAM S <=4 TRIME THOPR IM/PHILLIPS LFA S <=20 S = Susce ptibl e I = Inter media te R = Resis tant NS = Not susce ptibl e SDD = Susce ptibl e Dose Depen dent * = Not Teste d NR = Not Repor yudi NN = See Thera py Comme nts THERA PY COMME NTS Note 1: For infec tions other than uncom plica yudi UTI cause d by E. coli, K. pneum oniae or P. mirab ilis: Cefaz angelina is resis tant if NAKUL > or = 8 mcg/m L. (Dist ingui shing susce ptibl e versu s inter media te for isola oscar with NAKUL < or = 4 mcg/m L requi res addit ional testi ng.) Note 2: For uncom plica yudi UTI cause d by E. coli, K. pneum oniae or P. mirab ilis: Cefaz angelina is susce ptibl e if NAKUL <32 mcg/m L and predi cts susce ptibl e to the oral agent s cefac vivienne, cefdi veronica, cefpo doxim e, cefpr ozil, cefur oxime , cepha lexin and lorac arbef . Not Available [facility] [address] [place] [address], [place], [address], 12/02/2024 15:10:39 12/03/19 25 12/02/2024 urina lysis , dipst ick Leukocytes Modera te Not Available [id number]_ pc p [address] [place] [address], [phone], 11/30/2024 11:38:01 12/03/19 25 12/02/2024 urina lysis , dipst ick Nitrite negati ve Not Available [id number]_ pc p [address] [place] [address], [phone], 11/30/2024 11:38:01 12/03/19 25 12/02/2024 urina lysis , dipst ick Urobilinogen .2 Not Available [id number]_sma_pc [address], [address], 11/30/2024 11:38:01 12/03/19 25 12/02/2024 urina lysis , dipst ick Protein Trace Not Available [id number]_oms _pc [address], [address], 11/30/2024 11:38:01 12/03/19 25 12/02/2024 urina lysis , dipst ick pH 6.0 Not Available [id number] _pc p [address] [place] [address], [phone], 11/30/2024 11:38:01 12/03/19 25 12/02/2024 urina lysis , dipst ick Blood Negati ve Not Available [id number]_hly_ pc p [address] [place] [address], [address], 11/30/2024 11:38:01 12/03/19 25 12/02/2024 urina lysis , dipst ick Specific [place] 1.025 Not Available [id number] _sma_pc p [address] [place] [address], [phone], 11/30/2024 11:38:01 12/03/19 25 12/02/2024 urina lysis , dipst ick Ketone Negati ve Not Available [id number]_glt_ pc p [address] [place] [address], [phone], 11/30/2024 11:38:01 12/03/19 25 12/02/2024 urina lysis , dipst ick Bilirubin Negati ve Not Available [id number]_zhg_ pc p [address] [place] [address], [phone], 11/30/2024 11:38:01 12/03/19 25 12/02/2024 urina lysis , dipst ick Glucose Negati ve Not Available [id number]_vwn_ pc p [address] [place] [address], [phone], 11/30/2024 11:38:01 12/03/19 25 12/02/2024 urina lysis , dipst ick Appearance Slight ly Cloudy Not Available [id number]_xbo_ pc p [address] [place] [address], [phone], 11/30/2024 11:38:01 12/03/19 25 12/02/2024 urina lysis , dipst ick Color Yellow Not Available [id number]_sse _pc p [address] [place] [address], [place], [address], 11/30/2024 11:38:01 02/04/20 25 02/03/2025 LIPID PANEL WITH REFLE X TO DIREC T LDL cholesterol, total 90 mg/dL <200 normal Not Available [facility] [place] [facility] [address], [address], 02/03/2025 23:34:35 02/04/20 25 02/03/2025 LIPID PANEL WITH REFLE X TO DIREC T LDL HDL cholesterol 38 mg/dL > or = 50 low Not Available [facility] [place] [facility] [address], [place], [address], 02/03/2025 23:34:35 02/04/20 25 02/03/2025 LIPID PANEL WITH REFLE X TO DIREC T LDL triglyceride s 97 mg/dL <150 normal Not Available [facility] [place] [facility] [address], [place], [address], 02/03/2025 23:34:35 02/04/20 25 02/03/2025 LIPID PANEL WITH REFLE X TO DIREC T LDL LDL-choleste rol 34 mg/dL _(geraldine c) normal Refer ence range : <100 Era able range <100 mg/dL for prima ry preve ntion ; <70 mg/dL for patie nts with CHD or diabe tic patie nts with > or = 2 CHD risk facto rs. LDL-C is now calcu lated using the Irish n-Hop kins hyacinthu jer n, which is a valid ated novel hawa edwards than the Fried carmen equat ion in the estim ation of LDL-C . Irish mann SS et al. PARAS. 2013; 310(1 9): 2061- 2068 (http ://ed ucati on.Qu estDi newScales. com/f aq/FA Q164) Not Available [facility] [place] [facility] [address], [place], [address], 02/03/2025 23:34:35 02/04/20 25 02/03/2025 LIPID PANEL WITH REFLE X TO DIREC T LDL chol/HDLC ratio 2.4 (calc ) <5.0 normal Not Available [facility] [place] [facility] [address], [place], [address], 02/03/2025 23:34:35 02/04/20 25 02/03/2025 LIPID PANEL WITH REFLE X TO DIREC T LDL non HDL cholesterol 52 mg/dL _(geraldine c) <130 normal For patie nts with diabe oscar plus 1 major ASCVD risk facto r, treat ing to a non-H DL-C goal of <100 mg/dL (LDL- C of <70 mg/dL ) is consi dered a thera peuti c optio n. Not Available [facility] [place] [facility] [address], [place], [address], 02/03/2025 23:34:35 02/04/20 25 02/03/2025 COMPR EHENS ELISE METAB OLIC PANEL glucose 108 mg/dL 65-99 high Fasti ng refer ence inter cliff For someo ne witho ut known diabe oscar, a gluco se value betwe en 100 and 125 mg/dL is consi stent with predi abete s and shoul d be confi rmed with a follo w-up test. Not Available [facility] [place] [facility] [address], [place], [address], 02/03/2025 23:34:36 02/04/20 25 02/03/2025 COMPR EHENS ELISE METAB OLIC PANEL urea nitrogen (BUN) 21 mg/dL 7-25 normal Not Available [facility] [place] [facility] [address], [place], [address], 02/03/2025 23:34:36 02/04/20 25 02/03/2025 COMPR EHENS ELISE METAB OLIC PANEL creatinine 1.33 mg/dL 0.50-1 .05 high Not Available [facility] [address], [place], [address], 02/03/2025 23:34:36 02/04/20 25 02/03/2025 COMPR EHENS ELISE METAB OLIC PANEL eGFR 43 mL/mi n/1.7 3m2 > or = 60 low Not Available [facility] [address], [place], [address], 02/03/2025 23:34:36 02/04/20 25 02/03/2025 COMPR EHENS ELISE METAB OLIC PANEL BUN/creatini ne ratio 16 (calc ) 6-22 normal Not Available [facility] [address], [place], [address], 02/03/2025 23:34:36 02/04/20 25 02/03/2025 COMPR EHENS ELISE METAB OLIC PANEL sodium 142 mmol/ L 135-14 6 normal Not Available [facility] [address], [place], [address], 02/03/2025 23:34:36 02/04/20 25 02/03/2025 COMPR EHENS ELISE METAB OLIC PANEL potassium 4.3 mmol/ L 3.5-5. 3 normal Not Available [facility] [address], [place], [address], 02/03/2025 23:34:36 02/04/20 25 02/03/2025 COMPR EHENS ELISE METAB OLIC PANEL chloride 105 mmol/ L 98-110 normal Not Available [email or web address] [address], [place], [address], 02/03/2025 23:34:36 02/04/20 25 02/03/2025 COMPR EHENS ELISE METAB OLIC PANEL carbon dioxide 29 mmol/ L 20-32 normal Not Available [facility] [address], [place], [address], 02/03/2025 23:34:36 02/04/20 25 02/03/2025 COMPR EHENS ELISE METAB OLIC PANEL calcium 9.0 mg/dL 8.6-10 .4 normal Not Available [facility] [address], [place], [address], 02/03/2025 23:34:36 02/04/20 25 02/03/2025 COMPR EHENS ELISE METAB OLIC PANEL protein, total 5.9 g/dL 6.1-8. 1 low Not Available [facility] [address], [place], [address], 02/03/2025 23:34:36 02/04/20 25 02/03/2025 COMPR EHENS ELISE METAB OLIC PANEL albumin 3.8 g/dL 3.6-5. 1 normal Not Available [facility] [address], [place], [address], 02/03/2025 23:34:36 02/04/20 25 02/03/2025 COMPR EHENS ELISE METAB OLIC PANEL globulin 2.1 g/dL_ (calc ) 1.9-3. 7 normal Not Available [facility] [address], [place], [address], 02/03/2025 23:34:36 02/04/20 25 02/03/2025 COMPR EHENS ELISE METAB OLIC PANEL albumin/glob ulin ratio 1.8 (calc ) 1.0-2. 5 normal Not Available [facility] [address], [place], [address], 02/03/2025 23:34:36 02/04/20 25 02/03/2025 COMPR EHENS ELISE METAB OLIC PANEL bilirubin, total 0.5 mg/dL 0.2-1. 2 normal Not Available [facility] [address], [place], [address], 02/03/2025 23:34:36 02/04/20 25 02/03/2025 COMPR EHENS ELISE METAB OLIC PANEL alkaline phosphatase 66 U/L 37-153 normal Not Available [facility] [address], [place], [address], 02/03/2025 23:34:36 02/04/20 25 02/03/2025 COMPR EHENS ELISE METAB OLIC PANEL AST 30 U/L 10-35 normal Not Available [email or web address] [address], [place], [address], 02/03/2025 23:34:36 02/04/20 25 02/03/2025 COMPR EHENS ELISE METAB OLIC PANEL ALT 31 U/L 6-29 high Not Available [facility] [address], [place], [address], 02/03/2025 23:34:36 02/04/20 25 02/03/2025 HEMOG LOBIN A1C WITH MPG hemoglobin A1C 7.2 % <5.7 high For someo ne witho [...] diabe oscar for child radha. Not Available [facility] [place] [facility] [address], [place], [address], 02/03/2025 21:16:08 02/04/20 25 02/03/2025 HEMOG LOBIN A1C WITH MPG mean plasma glucose 179 mg/dL _(geraldine c) Not Available [facility] [place] [facility] [address], [place], [address], 02/03/2025 21:16:08 05/12/20 25 05/12/2025 LIPID PANEL WITH REFLE X TO DIREC T LDL cholesterol, total 90 mg/dL <200 normal Not Available [facility] [place] [facility] [address], [place], [address], 05/12/2025 22:07:43 05/12/20 25 05/12/2025 LIPID PANEL WITH REFLE X TO DIREC T LDL HDL cholesterol 39 mg/dL > or = 50 low Not Available [facility] [place] [facility] [address], [place], [address], 05/12/2025 22:07:43 05/12/20 25 05/12/2025 LIPID PANEL WITH REFLE X TO DIREC T LDL triglyceride s 118 mg/dL <150 normal Not Available [facility] [place] [facility] [address], [place], [address], 05/12/2025 22:07:43 05/12/20 25 05/12/2025 LIPID PANEL WITH REFLE X TO DIREC T LDL LDL-choleste rol 31 mg/dL _(geraldine c) normal Refer ence range : <100 Era able range <100 mg/dL for prima ry preve ntion ; <70 mg/dL for patie nts with CHD or diabe tic patie nts with > or = 2 CHD risk facto rs. LDL-C is now calcu lated using the Irish n-Hop kins calcu jer n, which is a valid ated novel hawa clay accur acy than the Fried carmen equat ion in the estim ation of LDL-C . Irish mann SS et al. PARAS. 2013; 310(1 9): 2061- 2068 (http ://ed ucati on.Qu [employer]. com/f aq/FA Q164) Not Available [facility] [place] [facility] [address], [place], [address], 05/12/2025 22:07:43 05/12/20 25 05/12/2025 LIPID PANEL WITH REFLE X TO DIREC T LDL chol/HDLC ratio 2.3 (calc ) <5.0 normal Not Available [facility] [place] [facility] [address], [place], [address], 05/12/2025 22:07:43 05/12/20 25 05/12/2025 LIPID PANEL WITH REFLE X TO DIREC T LDL non HDL cholesterol 51 mg/dL _(geraldine c) <130 normal For patie nts with diabe oscar plus 1 major ASCVD risk facto r, treat ing to a non-H DL-C goal of <100 mg/dL (LDL- C of <70 mg/dL ) is consi dered a thera peuti c optio n. Not Available [facility] [place] [facility] [address], [place], [address], 05/12/2025 22:07:43 05/12/20 25 05/12/2025 COMPR EHENS ELISE METAB OLIC PANEL glucose 147 mg/dL 65-99 high Fasti ng refer ence inter cliff For someo ne witho ut known diabe oscar, a gluco se value >125 mg/dL indic ates that they may have diabe oscar and this shoul d be confi rmed with a follo w-up test. Not Available [facility] [place] [facility] [address], [place], [address], 05/12/2025 22:07:45 05/12/20 25 05/12/2025 COMPR EHENS ELISE METAB OLIC PANEL urea nitrogen (BUN) 21 mg/dL 7-25 normal Not Available [facility] [address], [place], [address], 05/12/2025 22:07:45 05/12/20 25 05/12/2025 COMPR EHENS ELISE METAB OLIC PANEL creatinine 1.40 mg/dL 0.60-1 .00 high Not Available [facility] [address], [place], [address], 05/12/2025 22:07:45 05/12/20 25 05/12/2025 COMPR EHENS ELISE METAB OLIC PANEL eGFR 40 mL/mi n/1.7 3m2 > or = 60 low Not Available [facility] [[email or web address] [address], [place], [address], 05/12/2025 22:07:45 05/12/20 25 05/12/2025 COMPR EHENS ELISE METAB OLIC PANEL BUN/creatini ne ratio 15 (calc ) 6-22 normal Not Available [facility] [address], [place], [address], 05/12/2025 22:07:45 05/12/20 25 05/12/2025 COMPR EHENS ELISE METAB OLIC PANEL sodium 140 mmol/ L 135-14 6 normal Not Available [facility] [address], [place], [address], 05/12/2025 22:07:45 05/12/20 25 05/12/2025 COMPR EHENS ELISE METAB OLIC PANEL potassium 4.5 mmol/ L 3.5-5. 3 normal Not Available [facility] [[email or web address] [address], [place], [address], 05/12/2025 22:07:45 05/12/20 25 05/12/2025 COMPR EHENS ELISE METAB OLIC PANEL chloride 104 mmol/ L 98-110 normal Not Available [facility] [address], [place], [address], 05/12/2025 22:07:45 05/12/20 25 05/12/2025 COMPR EHENS ELISE METAB OLIC PANEL carbon dioxide 28 mmol/ L 20-32 normal Not Available [facility] [address], [place], [address], 05/12/2025 22:07:45 05/12/20 25 05/12/2025 COMPR EHENS ELISE METAB OLIC PANEL calcium 9.1 mg/dL 8.6-10 .4 normal Not Available [facility] [address], [place], [address], 05/12/2025 22:07:45 05/12/20 25 05/12/2025 COMPR EHENS ELISE METAB OLIC PANEL protein, total 6.1 g/dL 6.1-8. 1 normal Not Available [facility] [address], [place], [address], 05/12/2025 22:07:45 05/12/20 25 05/12/2025 COMPR EHENS ELISE METAB OLIC PANEL albumin 3.9 g/dL 3.6-5. 1 normal Not Available [facility] [address], [place], [address], 05/12/2025 22:07:45 05/12/20 25 05/12/2025 COMPR EHENS ELISE METAB OLIC PANEL globulin 2.2 g/dL_ (calc ) 1.9-3. 7 normal Not Available [facility] [address], [place], [address], 05/12/2025 22:07:45 05/12/20 25 05/12/2025 COMPR EHENS ELISE METAB OLIC PANEL albumin/glob ulin ratio 1.8 (calc ) 1.0-2. 5 normal Not Available [facility] [address], [place], [address], 05/12/2025 22:07:45 05/12/20 25 05/12/2025 COMPR EHENS ELISE METAB OLIC PANEL bilirubin, total 0.4 mg/dL 0.2-1. 2 normal Not Available [facility] [address], [place], [address], 05/12/2025 22:07:45 05/12/20 25 05/12/2025 COMPR EHENS ELISE METAB OLIC PANEL alkaline phosphatase 70 U/L 37-153 normal Not Available [facility] [address], [place], [address], 05/12/2025 22:07:45 05/12/20 25 05/12/2025 COMPR EHENS ELISE METAB OLIC PANEL AST 24 U/L 10-35 normal Not Available [facility] [address], [place], [address], 05/12/2025 22:07:45 05/12/20 25 05/12/2025 COMPR EHENS ELISE METAB OLIC PANEL ALT 29 U/L 6-29 normal Not Available [facility] [address], [place], [address], 05/12/2025 22:07:45 05/12/20 25 05/12/2025 TSH W/REF AMBAR TO FT4 TSH w/reflex to FT4 2.32 mIU/L 0.40-4 .50 normal Not Available [facility] [[email or web address] [facility] [address], [address], 05/12/2025 21:30:40 05/12/20 25 05/12/2025 HEMOG LOBIN A1C WITH EAG hemoglobin A1C 7.1 % <5.7 high For someo ne witho [...] diabe oscar for child radha. Not Available [facility] [address], [place], [address], 05/12/2025 21:30:40 05/12/20 25 05/12/2025 HEMOG LOBIN A1C WITH EAG EAG (mg/dL) 157 mg/dL Not Available [facility] [address], [place], [address], 05/12/2025 21:30:40 05/12/20 25 05/12/2025 HEMOG LOBIN A1C WITH EAG EAG (mmol/L) 8.7 mmol/ L Not Available [facility] [address], [address], 05/12/2025 21:30:40 05/19/20 25 05/20/2025 ALBUM IN, RANDO M URINE W/CRE ATINI NE creatinine, random urine 99 mg/dL 20-275 normal Not Available [facility] [address] [place], [address], 05/20/2025 18:41:44 05/19/20 25 05/20/2025 ALBUM IN, RANDO M URINE W/CRE ATINI NE albumin, urine 5.0 mg/dL see note: normal Refer ence Range : Refer ence Range Not estab lishe d Not Available [facility] [place] [facility] [address], [place], [address], 05/20/2025 18:41:44 05/19/20 25 05/20/2025 ALBUM IN, RANDO M URINE W/CRE ATINI [...] ostic categ ory. Not Available [facility] [place] [facility] [address], [place], [address], 05/20/2025 18:41:44 06/18/20 25 06/21/2025 [facility] AND IONIZ ED CALCI UM parathyroid [...] or Low Krys l High Not Available [facility] [[email or web address] [place] [facility] [address], [place], [address], 06/21/2025 17:09:59 06/18/20 25 06/21/2025 PTH, INTAC T ([facility] ) AND IONIZ ED CALCI UM calcium 9.6 mg/dL 8.6-10 .4 normal Not Available [facility] [[email or web address] [place] [facility] [address], [place], [address], 06/21/2025 17:09:59 06/18/20 25 06/21/2025 PTH, INTAC T ([facility] ) AND IONIZ ED CALCI UM calcium, ionized 5.3 mg/dL 4.7-5. 5 normal Not Available [facility] [[email or web address] [place] [facility] [address], [place], [address], 06/21/2025 17:09:59 06/18/20 25 06/19/2025 MAGNE SIUM magnesium 2.0 mg/dL 1.5-2. 5 normal Not Available [facility] [[email or web address] [place] [facility] [address], [place], [address], 06/19/2025 08:39:23 06/18/20 25 06/19/2025 COMPR EHENS ELISE METAB OLIC PANEL glucose 93 mg/dL 65-139 normal Non-f astin g refer ence inter cliff Not Available [facility] [[email or web address] [address], [place], [address], 06/19/2025 08:39:24 06/18/20 25 06/19/2025 COMPR EHENS ELISE METAB OLIC PANEL urea nitrogen (BUN) 20 mg/dL 7-25 normal Not Available [email or web address] [address], [place], [address], 06/19/2025 08:39:24 09/19/20 25 06/19/2025 COMPR EHENS ELISE METAB OLIC PANEL creatinine 1.26 mg/dL 0.60-1 .00 high Not Available [facility] [address], [place], [address], 06/19/2025 08:39:24 06/18/20 25 06/19/2025 COMPR EHENS ELISE METAB OLIC PANEL eGFR 46 mL/mi n/1.7 3m2 > or = 60 low Not Available [facility] [address], [place], [address], 06/19/2025 08:39:24 06/18/20 25 06/19/2025 COMPR EHENS ELISE METAB OLIC PANEL BUN/creatini ne ratio 16 (calc ) 6-22 normal Not Available [facility] [address], [place], [address], 06/19/2025 08:39:24 06/18/20 25 06/19/2025 COMPR EHENS ELISE METAB OLIC PANEL sodium 142 mmol/ L 135-14 6 normal Not Available [facility] [address], [place], [address], 06/19/2025 08:39:24 06/18/20 25 06/19/2025 COMPR EHENS ELISE METAB OLIC PANEL potassium 4.5 mmol/ L 3.5-5. 3 normal Not Available [facility] [address], [place], [address], 06/19/2025 08:39:24 06/18/20 25 06/19/2025 COMPR EHENS ELISE METAB OLIC PANEL chloride 105 mmol/ L 98-110 normal Not Available [facility] [address], [place], [address], 06/19/2025 08:39:24 06/18/20 25 06/19/2025 COMPR EHENS ELISE METAB OLIC PANEL carbon dioxide 29 mmol/ L 20-[address] [facility] [place] [facility] [address], [place], [address], 06/19/2025 08:39:24 06/18/20 25 06/19/2025 COMPR EHENS ELISE METAB OLIC PANEL calcium 9.6 mg/dL 8.6-10 .4 normal Not Available [facility] [address], [place], [address], 06/19/2025 08:39:24 06/18/20 25 06/19/2025 COMPR EHENS ELISE METAB OLIC PANEL protein, total 6.0 g/dL 6.1-8. 1 low Not Available [facility] [address], [place], [address], 06/19/2025 08:39:24 06/18/20 25 06/19/2025 COMPR EHENS ELISE METAB OLIC PANEL albumin 3.9 g/dL 3.6-5. 1 normal Not Available [facility] [address], [place], [address], 06/19/2025 08:39:24 06/18/20 25 06/19/2025 COMPR EHENS ELISE METAB OLIC PANEL globulin 2.1 g/dL_ (calc ) 1.9-3. 7 normal Not Available [facility] [address], [place], [address], 06/19/2025 08:39:24 06/18/20 25 06/19/2025 COMPR EHENS ELISE METAB OLIC PANEL albumin/glob ulin ratio 1.9 (calc ) 1.0-2. 5 normal Not Available [facility] [address], [place], [address], 06/19/2025 08:39:24 06/18/20 25 06/19/2025 COMPR EHENS ELISE METAB OLIC PANEL bilirubin, total 0.3 mg/dL 0.2-1. 2 normal Not Available [facility] [address], [place], [address], 06/19/2025 08:39:24 06/18/20 25 06/19/2025 COMPR EHENS ELISE METAB OLIC PANEL alkaline phosphatase 87 U/L 37-153 normal Not Available [facility] [address], [place], [address], 06/19/2025 08:39:24 06/18/20 25 06/19/2025 COMPR EHENS ELISE METAB OLIC PANEL AST 24 U/L 10-35 normal Not Available [facility] [address], [place], [address], 06/19/2025 08:39:24 06/18/20 25 06/19/2025 COMPR EHENS ELISE METAB OLIC PANEL ALT 26 U/L 6-29 normal Not Available [facility] [address], [place], [address], 06/19/2025 08:39:24 06/18/20 25 06/19/2025 CREAT INE KINAS E, TOTAL creatine kinase, total 207 U/L 18-225 normal Not Available [facility] [address], [place], [address], 06/19/2025 08:39:25 06/18/20 25 06/18/2025 CBC (INCL UDES DIFF/ PLT) white blood cell count 6.7 thous and/u L 3.8-10 .8 normal Not Available [facility] [address], [place], [address], 06/18/2025 23:04:28 06/18/20 06/18/2025 CBC (INCL UDES DIFF/ PLT) red blood cell count 4.75 kj on/uL 3.80-5 .10 normal Not Available [facility] [place] [facility] [address], [place], [address], 06/18/2025 23:04:28 06/18/20 25 06/18/2025 CBC (INCL UDES DIFF/ PLT) hemoglobin 14.1 g/dL 11.7-1 5.5 normal Not Available [email or web address] [address], [place], [address], 06/18/2025 23:04:28 06/18/20 25 06/18/2025 CBC (INCL UDES DIFF/ PLT) hematocrit 43.0 % 35.0-4 5.0 normal Not Available [facility] [[email or web address] [place] [facility] [address], [place], [address], 06/18/2025 23:04:28 06/18/20 25 06/18/2025 CBC (INCL UDES DIFF/ PLT) MCV 90.5 fL 80.0-1 00.0 normal Not Available [facility] [[email or web address] [place] [facility] [address], [place], [address], 06/18/2025 23:04:28 06/18/20 25 06/18/2025 CBC (INCL UDES DIFF/ PLT) MCH 29.7 pg 27.0-3 3.0 normal Not Available [email or web address] [address], [place], [address], 06/18/2025 23:04:28 06/18/20 25 06/18/2025 CBC (INCL UDES DIFF/ PLT) MCHC 32.8 g/dL 32.0-3 6.0 normal For adult s, a sligh t decre ase in the calcu lated MCHC value (in the range of 30 to 32 g/dL) is most likel y not clini carroll signi fican t; frank er, it shoul d be inter prete d with cauti on in [facility] with other red cell lora eters and the patie nt's clini geraldine condi tion. Not Available [facility] [place] [facility] [address], [place], [address], 06/18/2025 23:04:28 06/18/20 25 06/18/2025 CBC (INCL UDES DIFF/ PLT) RDW 12.9 % 11.0-1 5.0 normal Not Available [facility] [place] [facility] [address], [place], [address], 06/18/2025 23:04:28 06/18/20 25 06/18/2025 CBC (INCL UDES DIFF/ PLT) platelet count 282 thous and/u L 140-40 0 normal Not Available [facility] [place] [facility] [address], [place], [address], 06/18/2025 23:04:28 06/18/20 25 06/18/2025 CBC (INCL UDES DIFF/ PLT) MPV 9.1 fL 7.5-12 .5 normal Not Available [facility] [place] [facility] [address], [place], [address], 06/18/2025 23:04:28 06/18/20 25 06/18/2025 CBC (INCL UDES DIFF/ PLT) absolute neutrophils 4516 cells /uL 1500-7 800 normal Not Available [facility] [place] [facility] [address], [place], [address], 06/18/2025 23:04:28 06/18/20 25 06/18/2025 CBC (INCL UDES DIFF/ PLT) absolute lymphocytes 1253 cells /uL 850-39 00 normal Not Available [facility] [place] [facility] [address], [place], [address], 06/18/2025 23:04:28 06/18/20 25 06/18/2025 CBC (INCL UDES DIFF/ PLT) absolute monocytes 717 cells /uL 200-95 0 normal Not Available [facility] [place] [facility] [address], [place], [address], 06/18/2025 23:04:28 06/18/20 25 06/18/2025 CBC (INCL UDES DIFF/ PLT) absolute eosinophils 168 cells /uL 15-500 normal Not Available [facility] [place] [facility] [address], [place], [address], 06/18/2025 23:04:28 06/18/20 25 06/18/2025 CBC (INCL UDES DIFF/ PLT) absolute basophils 47 cells /uL 0-200 normal Not Available [facility] [place] [facility] [address], [place], [address], 06/18/2025 23:04:28 06/18/20 25 06/18/2025 CBC (INCL UDES DIFF/ PLT) neutrophils 67.4 % normal Not Available [facility] [place] [facility] [address], [place], [address], 06/18/2025 23:04:28 06/18/20 25 06/18/2025 CBC (INCL UDES DIFF/ PLT) lymphocytes 18.7 % normal Not Available [facility] [place] [facility] [address], [place], [address], 06/18/2025 23:04:28 06/18/20 25 06/18/2025 CBC (INCL UDES DIFF/ PLT) monocytes 10.7 % normal Not Available [facility] [place] [facility] [address], [address], 06/18/2025 23:04:28 06/18/20 25 06/18/2025 CBC (INCL UDES DIFF/ PLT) eosinophils 2.5 % normal Not Available [facility] [place] [facility] [address] [place], [place], [address], 06/18/2025 23:04:28 06/18/20 25 06/18/2025 CBC (INCL UDES DIFF/ PLT) basophils 0.7 % normal Not Available [facility] [address], [place], [address], 06/18/2025 23:04:28 06/18/20 25 06/21/2025 VITAM IN D,25- OH,TO IZABEL,I A vitamin D,25-oh,tota l,ia 42 NG/mL 30-100 normal Vitam in D Statu s 25-OH Vitam in D: Defic iency : <20 ng/mL Insuf ficie ncy: 20 - 29 ng/mL Optim al: > or = 30 ng/mL For 25-OH Vitam in D testi ng on patie nts on D2-phillips pplem entat ion and patie nts for whom quant itati on of D2 and D3 fract ions is requi red, the [facility] Ass[facility] eD(TM ) 25-OH VIT D, (D2,D 3), LC/MS /MS is recom gwendolyn d: order code [id number] (annika ents >2yrs ). See Note [address] to have a [employer] flori copy faxed has been kale edg [place]: [phone] Note 1 For addit ional infor viktoria chambers refer to http: //[facility] lindsay [email or web address].c om/fa q/FAQ 199 (This link is being provi ded for infor anjali mike/ wanda tovar purpo ses only. ) Not Available [facility] [address] [place], [place], [address], 06/21/2025 17:10:03 08/10/20 25 08/11/2025 LIPID PANEL WITH REFLE X TO DIREC T LDL cholesterol, total 111 mg/dL <200 normal Not Available [facility] [[email or web address]] [facility] [address], [place], [address], 08/11/2025 02:45:33 08/10/20 25 08/11/2025 LIPID PANEL WITH REFLE X TO DIREC T LDL HDL cholesterol 46 mg/dL > or = 50 low Not Available [facility] [[email or web address]] [facility] [address], [place], [address], 08/11/2025 02:45:33 08/10/20 25 08/11/2025 LIPID PANEL WITH REFLE X TO DIREC T LDL triglyceride s 154 mg/dL <150 high Not Available [facility] [[email or web address] [address], [place], [address], 08/11/2025 02:45:33 08/10/2008/11/2025 LIPID PANEL WITH REFLE X TO [...] calcu lated using the Irish n-Hop kins calcu jer n, which is a valid ated novel metho d tri cerdate r accur acy than the Fried carmen equat ion in the estim ation of LDL-C . Irish REDDY et al. PARAS. 2013; 310(1 9): 2061- 2068 (http ://ed ucati on.Qu Penelope [employer]. com/f aq/FA Q164) Not Available [facility] [address], [place], [address], 08/11/2025 02:45:33 08/10/20 25 08/11/2025 LIPID PANEL WITH REFLE X TO DIREC T LDL chol/HDLC ratio 2.4 (calc ) <5.0 normal Not Available [facility] [address], [place], [address], 08/11/2025 02:45:33 08/10/2008/11/2025 LIPID PANEL WITH REFLE X TO DIREC T LDL non HDL cholesterol 65 mg/dL _(geraldine c) <130 normal For patie nts with diabe oscar plus 1 major ASCVD risk facto r, treat ing to a non-H DL-C goal of <100 mg/dL (LDL- C of <70 mg/dL ) is consi dered a thera peuti c optio n. Not Available [facility] [place] [facility] [address], [place], [address], 08/11/2025 02:45:33 08/10/2008/11/2025 COMPR EHENS ELISE METAB OLIC PANEL glucose 133 mg/dL 65-99 high Fasti ng refer ence inter cliff For someo ne witho ut known diabe oscar, a gluco se value >125 mg/dL indic ates that they may have diabe oscar and this shoul d be confi rmed with a follo w-up test. Not Available [facility] [place] [facility] [address], [place], [address], 08/11/2025 02:45:34 08/10/2008/11/2025 COMPR EHENS ELISE METAB OLIC PANEL urea nitrogen (BUN) 18 mg/dL 7-25 normal Not Available [facility] [place] [facility] [address], [place], [address], 08/11/2025 02:45:34 08/10/20 25 08/11/2025 COMPR EHENS ELISE METAB OLIC PANEL creatinine 1.10 mg/dL 0.60-1 .00 high Not Available [facility] [place] [facility] [address], [place], [address], 08/11/2025 02:45:34 08/10/20 25 08/11/2025 COMPR EHENS ELISE METAB OLIC PANEL eGFR 54 mL/mi n/1.7 3m2 > or = 60 low Not Available [facility] [address], [place], [address], 08/11/2025 02:45:34 08/10/20 25 08/11/2025 COMPR EHENS ELISE METAB OLIC PANEL BUN/creatini ne ratio 16 (calc ) 6-22 normal Not Available [facility] [address], [place], [address], 08/11/2025 02:45:34 08/10/20 25 08/11/2025 COMPR EHENS ELISE METAB OLIC PANEL sodium 140 mmol/ L 135-14 6 normal Not Available [facility] [address], [place], [address], 08/11/2025 02:45:34 08/10/20 25 08/11/2025 COMPR EHENS ELISE METAB OLIC PANEL potassium 4.3 mmol/ L 3.5-5. 3 normal Not Available [facility] [address], [place], [address], 08/11/2025 02:45:34 08/10/20 25 08/11/2025 COMPR EHENS ELISE METAB OLIC PANEL chloride 104 mmol/ L 98-110 normal Not Available [facility] [address], [place], [address], 08/11/2025 02:45:34 08/10/20 25 08/11/2025 COMPR EHENS ELISE METAB OLIC PANEL carbon dioxide 30 mmol/ L 20-32 normal Not Available [facility] [address], [address], 08/11/2025 02:45:34 08/10/20 25 08/11/2025 COMPR EHENS ELISE METAB OLIC PANEL calcium 9.2 mg/dL 8.6-10 .4 normal Not Available [facility] [address], [place], [address], 08/11/2025 02:45:34 08/10/20 25 08/11/2025 COMPR EHENS ELISE METAB OLIC PANEL protein, total 5.8 g/dL 6.1-8. 1 low Not Available [facility] [address], [place], [address], 08/11/2025 02:45:34 08/10/20 25 08/11/2025 COMPR EHENS ELISE METAB OLIC PANEL albumin 3.8 g/dL 3.6-5. 1 normal Not Available [facility] [address], [place], [address], 08/11/2025 02:45:34 08/10/20 25 08/11/2025 COMPR EHENS ELISE METAB OLIC PANEL globulin 2.0 g/dL_ (calc ) 1.9-3. 7 normal Not Available [facility] [address], [place], [address], 08/11/2025 02:45:34 08/10/20 25 08/11/2025 COMPR EHENS ELISE METAB OLIC PANEL albumin/glob ulin ratio 1.9 (calc ) 1.0-2. 5 normal Not Available [facility] [address], [place], [address], 08/11/2025 02:45:34 08/10/20 25 08/11/2025 COMPR EHENS ELISE METAB OLIC PANEL bilirubin, total 0.3 mg/dL 0.2-1. 2 normal Not Available [facility] [address], [place], [address], 08/11/2025 02:45:34 08/10/20 25 08/11/2025 COMPR EHENS ELISE METAB OLIC PANEL alkaline phosphatase 80 U/L 37-153 normal Not Available [facility] [place] [facility] [address], [place], [address], 08/11/2025 02:45:34 08/10/20 25 08/11/2025 COMPR EHENS ELISE METAB OLIC PANEL AST 22 U/L 10-35 normal Not Available [facility] [place] [facility] [address], [place], [address], 08/11/2025 02:45:34 08/10/20 25 08/11/2025 COMPR EHENS ELISE METAB OLIC PANEL ALT 21 U/L 6-29 normal Not Available [facility] [place] [facility] [address], [place], [address], 08/11/2025 02:45:34 08/10/20 25 08/10/2025 HEMOG LOBIN [...] diabe oscar for child radha. Not Available [facility] [address], [place], [address], 08/10/2025 23:21:22 08/10/20 25 08/10/2025 HEMOG LOBIN A1C WITH EAG EAG (mg/dL) 148 mg/dL Not Available [facility] [address], [address], 08/10/2025 23:21:22 08/10/20 25 08/10/2025 HEMOG LOBIN A1C WITH EAG EAG (mmol/L) 8.2 mmol/ L Not Available [facility] [address], [address], 08/10/2025 23:21:22 08/18/20 25 08/19/2025 ALBUM IN, RANDO M URINE W/CRE ATINI NE creatinine, random urine 47 mg/dL 20-275 normal Not Available [facility] [address], [address], 08/19/2025 17:12:49 08/18/20 25 08/19/2025 ALBUM IN, RANDO M URINE W/CRE ATINI NE albumin, urine 8.5 mg/dL see note: normal Refer ence Range : Refer ence Range Not estab lishe d Not Available [facility] [address], [address], 08/19/2025 17:12:49 08/18/20 25 08/19/2025 ALBUM IN, [...] a diagn ostic categ ory. Not Available [facility] [place] [facility] [address], [place], [address], 08/19/2025 17:12:49 02/13/20 25 02/12/2025 US, bladd er No observ ation record ed. [facility] [address], [place], [address], 02/18/2025 06:55:15 02/13/20 25 02/12/2025 XR, abdom en + RF, upper gastr ointe yan l tract , w/ contr ast PO No observ ation record ed. [facility] ([facility]) [address], [place], [address], 02/18/2025 06:55:15 03/02/20 25 03/02/2025 CT, abdom en, w/wo contr ast No observ ation record ed. [email or web address] [facility] [place] [address], [place], [address], 03/06/2025 13:17:06 03/23/20 25 03/23/2025 LDCT, chest , for lung cance r scree kobe No observ ation record ed. [facility] [place] [address], [place], [address], 03/28/2025 18:25:55 06/07/20 25 02/26/2025 CT, adren al, w/ wo contr ast No observ ation record ed. [facility] [place] [address], [place], [address], 06/13/2025 12:12:36 07/12/20 25 07/12/2025 XR, cervi geraldine spine , 2 or 3 view No observ ation record ed. [email or web address] [facility] [place] [address], [place], [address], 07/18/2025 12:33:16 07/30/2007/30/2025 MRI, shoul elizabet, w/o contr ast No observ ation record ed. [facility] [place] [address], [place], [address], 08/01/2025 20:21:20 08/09/20 25 07/30/2025 MRI, cervi cotho racol umbar spine , w/o contr ast No observ ation record ed. [email or web address] [facility] [place] [address], [place], [address], 08/15/2025 18:45:33 09/06/20 US, duple x, abdom en No observ ation record ed. [email or web address] Not Available 09/06 14:29:09 Result Notes None recorded. Problems Name Problem SNOMED Code Status Onset Date Resolution Date Notes Provider Name and Address Organization Details Recorded Time Hypersom kranthi 08886831 Active 2014 Hypersom nolence; PIH6Jyrl ription: Hypersom nolence; FTN76Rbn cription : Hypersom nolence; dlname: Aliyah; dfname: Lana ; dminit: A; Physicia n_Suffix : PA-C; Physicia n_Phone: tel:[phone]; Physicia n_Fax: fax:[phone]; Physicia n_Specia lty: Neurolog y; Physicia n_Addr1: [address]; Physicia n_Addr2: [address]; Physicia n_City: [facility]; Physicia n_State: [place]; Physicia n_Postal Code: [address]; NPI: [id number]; Not Available [facility] 11:52:33 Hypersom kranthi with sleep apnea 13355153 Active 2014 Sleep apnea with hypersom nolence; CAV5Ebry ription: Sleep apnea with hypersom nolence; EPV71Pof cription : Sleep apnea with hypersom nolence; dlname: Arslan; dfname: Tevin; dminit: [place]; Physicia n_Suffix : ; Physicia n_Phone: tel:[phone]; Physicia n_Fax: fax: [phone]; Physicia n_Specia lty: Pulmonar y Disease; Physicia n_Addr1: [address]; Physicia n_Addr2: [address], Lower Lvl; Physicia n_City: [facility]; Physicia n_State: [place]; Physicia n_Postal Code: [address]; NPI: [id number]; Not Available [facility] 11:52:32 Electroc ardiogra m abnormal 521137999 Active 2015 Abnormal EKG; GQQ5Cypl ription: Abnormal EKG; VXY05Nwr cription : Abnormal EKG; dlname: Razia; dfname: Marty; Physicia n_Suffix : ; Physicia n_Phone: tel:[phone]; Physicia n_Fax: fax:[phone]; Physicia n_Specia lty: Cardiolo gy; Physicia n_Addr1: [address] [facility]; Physicia n_Addr2: [address]; Physicia n_City: [place] ; Physicia n_State: [place]; Physicia n_Postal Code: [address]; NPI: [id number]; Not Available [facility] 11:52:30 History of surgery for cerebral aneurysm 644697428 Active 2015 H/O cerebral aneurysm repair; SCJ5Uohi ription: H/O cerebral aneurysm repair; DEX42Ejo cription : H/O cerebral aneurysm repair; NPI: [id number]; Not Available [facility] 11:52:31 Essentia l hyperten michaelle 65541435 Active 2015 Essentia l hyperten michaelle; PCW4Rezb ription: Essentia l hyperten michaelle; FBH36Zjt cription : Essentia l hyperten michaelle; NPI: [id number]; Not Available [facility] 5 11:52:35 Kidney stone 85315342 Active 2017 Nephroli thiasis; IAQ8Lles ription: Nephroli thiasis; YTW64Wzx cription : Nephroli thiasis; dlname: Dani; dfname: Radha; Physicia n_Suffix : [place]; Physicia n_Phone: tel:[phone]; Physicia n_Fax: fax:[phone]; Physicia n_Addr1: [address]; Physicia n_Addr2: [address]; Physicia n_City: [place] ; Physicia n_State: [place]; Physicia n_Postal Code: [address]; Not Available [facility] 5 11:52:31 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 77262482378 564317 Active 2017 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 on EMG/NCV 12/30/2016 ; XYU5Ifmg ription: Neuropat hy involvin g both lower extremit ies; PYP23Okn cription : Neuropat hy involvin g both lower extremit ies; NPI: [id number]; Not Available [facility] 5 11:52:33 Abdomina l aortic atherosc lerosis 613944909 Active 2017 Abdomina l aortic atherosc lerosis on CT 06/2017; ZMD2Jctd ription: Abdomina l aortic atherosc lerosis; QAS59Irb cription : Abdomina l aortic atherosc lerosis; NPI: [id number]; Not Available [facility] 5 11:52:29 Obstruct elise sleep apnea syndrome 38797426 Active 2017 Obstruct elise sleep apnea on CPAP; TKL8Inwu ription: Obstruct elise sleep apnea on CPAP; YHO61Phd cription : Obstruct elise sleep apnea on CPAP; NPI: [id number] 42; Not Available [facility] 5 11:52:38 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 81774337 Active 2017 DDD (degener ative disc disease) , lumbosac ral; RUJ3Tref ription: DDD (degener ative disc disease) , lumbosac ral; DAV12Xcb cription : DDD (degener ative disc disease) , lumbosac ral; NPI: [id number]; Not Available [facility] 5 11:52:34 Synovial osteocho ndromato sis 071624247 Active 2017 Osteocho ndromato sis, synovial (right shoulder ); FWS7Lszj ription: Osteocho ndromato sis, synovial ; QVL82Lwh cription : Osteocho ndromato sis, synovial ; NPI: [id number] 42; Not Available [facility] 5 11:52:36 Bilatera l trochant rita bursitis 71267641255 071437 Active 2017 Trochant rita bursitis of both hips; EJY5Fitq ription: Trochant rita bursitis of both hips; NGW70Keh cription : Trochant rita bursitis of both hips; NPI: [id number] 42; Not Available [facility] 5 11:52:38 Hypergly cemia due to type 2 diabetes mellitus 61110684258 9109 Active 2018 Type 2 diabetes mellitus with hypergly cemia, with long-ter m current use of insulin; WIH4Zrph ription: Type 2 diabetes mellitus with hypergly cemia, with long-ter m current use of insulin; WWJ76Tla cription : Type 2 diabetes mellitus with hypergly cemia, with long-ter m current use of insulin; NPI: [id number] 42; Not Available [facility] 5 11:52:34 Spinal stenosis of lumbar region 84877774 Active 2018 Spinal stenosis of lumbar region with neurogen ic claudica tion; CRF7Yopa ription: Spinal stenosis of lumbar region with neurogen ic claudica tion; WSB01Uqk cription : Spinal stenosis of lumbar region with neurogen ic claudica tion; NPI: [id number] 42; Not Available [facility] 5 11:52:36 Chronic obstruct elise pulmonar y disease 25396525 Active 2018 COPD (chronic obstruct elise pulmonar y disease) ; QLZ2Tkqc ription: COPD (chronic obstruct elise pulmonar y disease) ; HLT23Lmb cription : COPD (chronic obstruct elise pulmonar y disease) ; dlname: Viet; dfname: Victor Manuel; Physicia n_Suffix : ; Physicia n_Phone: tel: [phone]; Physicia n_Fax: fax: [phone]; Physicia n_Specia lty: [facility] ; Physicia n_Addr1: [address] [place] [address]; Physicia n_Addr2: [facility]; Physicia n_City: [place] ; Physicia n_State: [place]; Physicia n_Postal Code: [address]; NPI: [id number]; Not Available [facility] 5 11:52:32 Pneumoni a 056553745 Active 2018 Pneumoni a 12/2018; YEM8Cdcs ription: Pneumoni a; FSY24Zki cription : Pneumoni a; NPI: [id number]; Not Available [facility] 11:52:30 Sepsis 31038078 Completed 201805/19/2025 Sepsis 12/2018 MORE Velasco [address] [place] [address], [address] , [facility] 19:24:41 Acute respirat ory failure 36994189 Completed 201802/10/2025 Acute respirat ory failure with hypoxia 12/2018 MORE Velasco [address] [place] [address], [address] , [facility] 5 17:03:38 Trochant rita bursitis of right hip 85356820663 9100 Active 2018 Trochant rita bursitis of right hip; BSG0Jcfj ription: Trochant rita bursitis of right hip; ZQJ79Nde cription : Trochant rita bursitis of right hip; dlname: Luis Fernando; dfname: Quinn; Physicia n_Suffix : [place], [place]; Not Available [facility] 5 11:52:38 Calcific ation of coronary artery 589755963 Active 2018 Extensiv e coronary artery calcific ation seen on CTA chest HH 01/01/2019 ; IDD3Adsd ription: Coronary artery calcific ation seen on CAT scan; GNA99Wck cription : Coronary artery calcific ation seen on CAT scan; NPI: [id number]; Not Available [facility] 5 11:52:30 Ex-smoke r 5817764 Active 2018 Former smoker; JDT8Rcss ription: Former smoker; ORU81Yqg cription : Former smoker; NPI: [id number] 42; Not Available [facility] 5 11:52:34 Adenoma of right adrenal gland 32996839803 110805 Active 2018 Adenoma of right adrenal gland on CTA 01/01/2019 ; WHX0Kuju ription: Adenoma of right adrenal gland; QQX69Pux cription : Adenoma of right adrenal gland; NPI: [id number] 42; Not Available [facility] 5 11:52:32 Heart failure with normal ejection fraction 538074806 Active 2018 Heart failure with preserve d ejection fraction , NYHA class I; MBR7Uipy ription: Heart failure with preserve d ejection fraction , NYHA class I; ACK07Kok cription : Heart failure with preserve d ejection fraction , NYHA class I; NPI: [id number] 42; Not Available [facility] 5 11:52:37 Insulin treated type 2 diabetes mellitus 413402793 Active 2019 Type 2 diabetes mellitus with microalb uminuria , with long-ter m current use of insulin; RDZ7Jxks ription: Type 2 diabetes mellitus with microalb uminuria , with long-ter m current use of insulin; TLQ80Jui cription : Type 2 diabetes mellitus with microalb uminuria , with long-ter m current use of insulin; NPI: [id number] 42; Not Available [facility] 5 11:52:35 Chronic kidney disease stage 3A 671685733 Active 2019 Stage 3a chronic kidney disease; XOF8Vdhv ription: Stage 3a chronic kidney disease; CBD25Cna cription : Stage 3a chronic kidney disease; NPI: [id number] 42; Not Available [facility] 11:52:30 Nodule of lung 834834245 Active 2020 Pulmonar y nodule; GVI9Tonk ription: Pulmonar y nodule; SXH32Kzs cription : Pulmonar y nodule; NPI: [id number] 42; Not Available [facility] 11:52:32 Venous insuffic iency of lower limb 690768266 Active 2020 Venous insuffic iency of both lower extremit ies; DDG1Guxu ription: Venous insuffic iency of both lower extremit ies; EVB89Lan cription : Venous insuffic iency of both lower extremit ies; NPI: [id number] 42; Not Available [facility] 11:52:37 Bilatera l adenoma of adrenal glands 75125343633 460226 Active 2024 MORE Velasco [address] [place] [address], [address] , [facility] 5 10:06:32 Chronic kidney disease stage 3 029633954 Active 2024 MORE Velasco [address] [place] [address], [address] , [facility] 5 10:06:34 Uncontro lled type 2 diabetes mellitus 684509987 Active 2024 MORE Velasco [address] [place] [address], [address] , [facility] 5 10:06:37 Acquired hypothyr oidism 010331119 Active 2024 MORE Velasco [address] [place] [address], [address] , [facility] 19:27:40 Problem Notes None recorded. Procedures Surgical [...] [place] 12/08/2024 04:02:35 Appendectomy completed Not Available [facility] 12/08/2024 04:02:35 Imaging Results None recorded. Procedure Notes None recorded. Medical Equipment None Reported. Allergies Allergen ID Allergen Name Allergen Category Reaction Reaction Severity Criticality Documentation Date Start Date Code Code System Note Provider Name and Address Organization Details Recorded Time 2181 honey bee venom medicatio n anaphylax is Not available Not available 09/07/2024 91031 7 RxNorm Radha Dani null, [facility] 4 12:04:03 2182 BuTrans medicatio n Not available Not available Not available 09/07/2024 87327 1 RxNorm Radha Dani null, [facility] 4 12:13:00 2183 dicyclomi ne medicatio n Not available Not available Not available 09/07/2024 3361 RxNorm Radha Dani null, [facility] 4 12:13:08 2184 loperamid e medicatio n Not available Not available Not available 09/07/2024 6468 RxNorm Radha Dani null, [facility] 4 12:13:17 2185 promethaz ine medicatio n Not available Not available Not available 09/07/2024 8745 RxNorm Radha Dani null, [facility] 4 12:13:24 2186 codeine medicatio n Not available Not available Not available 09/07/2024 2670 RxNorm Radha Dani null, [facility] 4 12:13:28 82585 yellow hornet venom Not available anaphylax is Not available Not available 11/09/20242021 25500 1 RxNorm React ion: Anaph ylaxi s; Not Available [facility] 5 08:12:46 83207 honey bee venom environme nt anaphylax is Not available Not available 11/09/20242017 65548 7 RxNorm React ion: Anaph ylaxi s; Comme nt: dfnam e: Christina; dlnam e: Armaan clay; Physi cian_ Addr1 : [address]; Physi cian_ Addr2 : [address]; Physi cian_ City: [facility] ord; Physi cian_ State : [place]; Physi cian_ Posta lCode : [address] ; Physi cian_ Phone : tel:[phone]; Physi cian_ Fax: fax:[phone]; Physi cian_ Suffi x: RN; Physi cian_ Speci alty: Aleksander yang Nurse ; ; Not Available [facility] 5 08:12:46 85590 wasp venoms environme nt anaphylax is Not available Not available 11/09/20242021 21744 RxNorm React ion: Anaph ylaxi s; Not Available [facility] 5 08:12:47 98828 buprenorp satish medicatio n Not available Not available Not available 11/09/20242022 1819 RxNorm Comme nt: dfnam e: Adelaida cee; dlnam e: Ed ; Physi cian_ Suffi x: [place]; ; Not Available [facility] 5 08:12:47 42883 rosuvasta tin medicatio n myalgias (muscle pain) Not available low 08/17/20252024 39749 2 RxNorm Not Available [facility] 5 05:08:03 87377 beeswax medicatio n anaphylax is Not available high 08/17/20252015 1356 RxNorm Not Available [facility] prod 05:08:03 Medications Name Sig Start Date Stop [...] glucose TID DX E11.9 2023 active NPI: [id number]; Not Available Not Available Not Available [...] glucose TID DX E11.9 2022 active NPI: [id number]; Not Available Not Available Not Available [...] active dfname: Nam; dlname: Chepe; Physicia n_Addr1: [address] [place] [address]; Physicia n_Addr2: [facility]; Physicia n_City: [place] ; Physicia n_State: [place]; Physicia n_Postal Code: [address]; NPI: [id number]; Physicia n_Suffix : PA-C; Physicia n_Phone: tel:[phone]; Physicia n_Fax: fax:[phone]; Physicia n_Specia lty: Occupancy Specialist ; Not Available Not Available Not Available [...] Available No t Available FreeStyle Minerva 3 [place] 1 Device by Does not apply route continuo us. 2023 active NPI: [id number]; Not Available Not Available Not Available FreeStyle Minerva 3 Plus Sensor device ONE EVERY 15 DAYS . active Not Available Not Available No t Available Steffanie 2nd Gen Pen Needle 32 gauge x 5/32 INJECT 1 EACH UNDER THE SKIN 4 TIMES A DAY active Not Available Not Available No t Available Vitals Date Recorded Body height Body temperature Heart rate Body mass index (BMI) Body weight Systolic And Diastolic Provider Name and Address Organization Details Last Updated DateTime 5 170.18 cm 97.9 [degF] 85 /min 35.9 kg/m2 600473. 65 g 140/83 mm[Hg] Yudith Ward [facility] 5 11:05:11 Date Recorded Body height Heart rate Systolic And Diastolic Provider Name and Address Organization Details Last Updated DateTime 02/10/2025 170.18 cm 76 /min 163/83 mm[Hg] Radha Louise [facility] 02/10/2025 14:45:57 Date Recorded Body height Heart rate Oxygen saturation Body temperature Body mass index (BMI) Body weight Systolic And Diastolic Systolic And Diastolic Provider Name and Address Organization Details Last Updated DateTime 170.18 cm 86 /min 98 % 98.2 [degF] 36.2 kg/m2 337032. 84 g 135/76 mm[Hg] 94/64 mm[Hg] Yudith Ed [facility] 13:53:43 Date Recorded Systolic And Diastolic Provider Name and Address Organization Details Last Updated DateTime 08/18/2025 139/77 mm[Hg] MORE Velasco [address] [place] [address], [phone], [facility] 08/18/2025 21:33:03 Date Recorded Body height Oxygen saturation Provider Name and Address Organization Details Last Updated DateTime 08/18/2025 170.18 cm 96 % Elicia Alarcon [facility] 08/18/2025 14:11:27 Social History None recorded. Functional [...] virus, quadrivalent, PF 8 completed Not Available [facility] 11/09/2024 12:44:39 pneumococcal polysaccharide PPV23 9 completed Not Available [facility] 11/09/2024 12:44:39 Influenza, MDCK, quadrivalent, PF 9 completed Yudith Ward null, [facility] 11/30/2024 11:06:14 COVID-19, mRNA, LNP-S, PF, 100 mcg/0.5mL dose or 50 mcg/0.25mL dose 1 completed Yudith Ward null, [facility] 11/30/2024 11:06:14 Influenza, high-dose, quadrivalent, PF 1 completed Not Available [facility] 11/09/2024 12:44:40 COVID-19, mRNA, LNP-S, PF, 100 mcg/0.5mL dose or 50 mcg/0.25mL dose 1 completed Yudith Ward null, [facility] 11/30/2024 11:06:14 COVID-19, mRNA, LNP-S, PF, 100 mcg/0.5mL dose or 50 mcg/0.25mL dose 1 completed Not Available [facility] 11/09/2024 12:44:40 zoster recombinant 1 completed Not Available [facility] 11/09/2024 12:44:40 Influenza, high-dose, quadrivalent, PF 2 completed Not Available [facility] 11/09/2024 12:44:40 Pneumococcal conjugate PCV20, polysaccharide [id number] conjugate, adjuvant, PF 3 completed Yudith Ward null, [facility] 11/30/2024 11:06:14 zoster recombinant 3 completed Yudith Ward null, [facility] 11/30/2024 11:06:14 influenza, unspecified formulation 5 completed Yudith Ward null, [facility] 11/30/2024 11:06:14 Influenza, adjuvanted, quadrivalent, PF 3 completed Yudith Ward null, [facility] 11/30/2024 11:06:14 RSV, bivalent, protein subunit RSVpreF, diluent reconstituted, 0.5 mL, PF 5 completed Angi Stafford null, [facility] 11/10/2024 13:54:36 Influenza, adjuvanted, trivalent, PF 4 completed Yudith Ward null, [facility] 11/30/2024 11:06:14 Influenza, split virus, trivalent, PF 5 completed Yudith Ward null, [facility] 11/30/2024 11:06:14 Influenza, high-dose, trivalent, PF 5 completed Not Available [facility] 08/18/2025 13:46:42 Past Encounters Encounter ID Performer Location Encounter Start Date Encounter Closed Date Diagnosis/Indication Diagnosis SNOMED-CT Code Diagnosis ICD10 Code Diagnosis IMO Codes Diagnosis Note [id number] MORE Velasco [id number] A_PCP [address] [place] [address] [id number] 1 09/07/2024 11:54:09 09/07/2024 13:38:33 Infection of tooth 434937944 K04.7 Jaw pain 811442257 R68.8 4 Pain in axilla 259806160 M79.629 [id number] MORE Velasco [id number] A_PCP [address] [place] [address] [id number] 1 11/05/2024 08:09:37 11/05/2024 11:51:59 Uncontrolled type 2 diabetes mellitus 225128060 E11.65 Diplopia 13068373 H53.2 Chronic ki dney disease stage 3 549560643 N18.30 Bilateral adenoma of adrenal glands 8693038132 9412842 D35.01 D35.02 Bilateral cramp of muscle of lower limbs 4363662297 0281000 R25.2 [id number] MORE Velasco [id number] A_PCP [address] [place] [address] [id number] 1 11/10/2024 13:47:28 11/10/2024 14:42:28 Acute cough 7453915970 07751402 R05.1 [id number] MORE Velasco037_SM A_PCP [address] [place] [address] [id number] 1 11/18/2024 16:06:01 11/19/2024 12:19:39 Excessive day and night-time sleepiness 840413443 G47.19 Hyperglyce jackeline due to type 2 diabetes mellitus 0379095777 36777 E11.65 Adrenal adenoma 02973437 8 D35.00 [id number] MORE Velasco [id number] A_PCP [address] [place] [address] [id number] 1 11/24/2024 13:58:10 11/26/2024 11:40:08 Insulin treated type 2 diabetes mellitus 004005487 E11.29 Bilateral adenoma of adrenal glands 2013889131 9431070 D35.01 D35.02 History of surgery for cerebral aneurysm 518602933 Z98.890 Hyperglyce jackeline due to type 2 diabetes mellitus 4070747227 19109 E11.65 Hypersomnia 56752286 G47 .10 [id number] MORE Velasco [id number] A_PCP [address] [place] [address] [id number] 1 11/30/2024 10:54:46 11/30/2024 11:47:52 Hyperglycemia due to type 2 diabetes mellitus 3620795204 19109 E11.65 Hypersomnia 29794010 G47 .10 Recurrent urinary tract infection 533924606 N39.0 [id number] MORE Velasco [id number] A_PCP [address] [place] [address] [id number] 1 02/10/2025 14:32:37 02/11/2025 13:45:48 Uncontrolled type 2 diabetes mellitus 485850569 E11.65 Chronic constipation 236 989754 K59.09 298401 [id number] MORE Velasco [id number] A_PCP [address] [place] [address] [id number] 1 05/19/2025 13:45:09 05/19/2025 15:05:14 Well controlled type 2 diabetes mellitus 936650447 E11.9 [id number] Bee sting 142049149 T63. 441A [id number] Hyperglyce jackeline due to type 2 diabetes mellitus 2449439342 72289 E11.65 Essential hypertension 67293556 I10 Abdominal aortic atherosclerosis 237336784 I70.0 Venous ins ufficiency of lower limb 190857924 I87.2 Insulin tr eated type 2 diabetes mellitus 162707169 E11.29 Chronic ki dney disease stage 3A 822337099 N18.31 Chronic ob structive pulmonary disease 60550112 J44.9 Obstructiv e sleep apnea syndrome 10650427 G47.33 Bilateral adenoma of adrenal glands 3754120608 5528589 D35.01 D35.02 [id number] MORE Velasco [id number] A_PCP [address] [place] [address] [id number] 1 06/17/2025 06:08:44 06/20/2025 14:45:54 Bilateral cramp of muscle of lower limbs 0930645416 0814546 R25.2 11031728 Vitamin D deficiency 347 55187 E55.9 69404 Essential hypertension 04143973 I10 41140 Calcificat ion of coronary artery 665677463 I25.10 Abdominal aortic atherosclerosis 972664519 I70.0 [id number] MORE Velasco [id number] A_PCP [address] [place] [address] [id number] 1 08/18/2025 13:45:49 08/18/2025 14:41:25 Well controlled type 2 diabetes mellitus 582043882 E11.9 376848 Essential hypertension 97980593 I10 Abdominal aortic atherosclerosis 130141038 I70.0 Venous ins ufficiency of lower limb 259043711 I87.2 Insulin tr eated type 2 diabetes mellitus 525345143 E11.29 Chronic ki dney disease stage 3A 880712209 N18.31 Spasm 54158197 M62.838 91325 Type 2 clyde betes mellitus without complication 189387029 E11.9 General ex amination of patient 870420618 Z00.00 [id number] Health Concerns Section Related Observation LastModified by Organization Detai ls LastModified Time None Recorded Concern Status LastModified by Organization Details LastModified Time None Recorded Advance Directives Directive None Recorded Payers Insurance Date Sequence Insurance Name Policy Number Policy Gomez Covered Member ID Gomez Member ID Guarantor Name 08/14/2025 1 [employer] (MEDICARE REPLACEMENT /ADVANTAGE - HMO) [id number] Hemalatha Cuello [id number] Hemalatha Cuello Notes Date Note Type Note Provider Name and Address Organization Details Recorded Time 11/30/2024 text/html ROS as noted in the HPI Follow up on Novolog The patient reports symptoms suggestive of a possible urinary tract infection, including bladder pressure and frequent urination, but denies burning sensation. She does not report classic UTI symptoms such as dysuria, urgency with inability to void, or cloudy urine. The patient has been experiencing difficulty with glycemic control, occasionally forgetting to administer her dinner insulin, estimating that she misses approximately 3 doses out of 7 days. Her current insulin regimen includes NovoLog 15 units with breakfast and 5 units with dinner, as well as Tresiba 60 units in the morning The patient's meal schedule typically consists of breakfast between 7:00 AM and 9:00 AM, and dinner between 6:00 PM and 8:00 PM, with no regular lunch. She occasionally has afternoon snacks, which include high-carbohydrate items such as Nilla wafers, chocolate milk, or cheese and crackers. Daytime somnolence continues to be severe and debilitating. She is scheduled to see sleep medicine but not for another couple of months.Additionally, the patient expressed concerns about potential changes in healthcare policy affecting medication costs Relevant ROS negative except as noted above. MORE Velasco [address] [place] [address], [phone], [facility] 12/01/2024 07:29:14 02/10/2025 text/html ROS as noted in the HPI Hemalatha Ceullo presents with multiple concerns including severe tooth pain following a tooth extraction, difficulty urinating, constipation, and issues with blood sugar management.The patient had a tooth extracted a couple of hours prior to the visit due to a crack that extended below the gumline. She describes the pain as killing her and reports that the extraction was particularly difficult, requiring 2 jackhammers according to the oral surgeon. The patient was given 2 Vicodin for pain management. She is experiencing ongoing bleeding from the extraction site. Hemalatha reports a 4-month history of urinary symptoms, describing it as feeling like somebody is sitting on my bladder. She had a urinalysis 3 weeks after symptom onset that showed an infection. Despite treatment, the symptoms have persisted. A kidney ultrasound and blood tests ordered by her welfare aide were reportedly normal. The patient also describes chronic constipation, which has worsened recently. She reports having small, round stool like little round stones for a couple of months, though she was still having daily bowel movements. Yesterday, she experienced a vicious upset stomach. She has tried lgyw-zti-mytlwue laxatives with limited success. Regarding her diabetes management, Hemalatha reports occasional low blood sugar readings, particularly in the afternoon. Yesterday at 4 PM, her blood sugar was in the low 80s or high 70s. She also experiences lows sometimes in the morning. She is currently taking Tresiba 60 units in the morning, NovoLog 15 units in the morning, and occasionally 8 units of NovoLog at night if her sugar is high. She is also on Mounjaro, which she reports does not cause her blood sugar to go as high as it did on Ozempic. Her medical history includes diabetes mellitus, with A1c values of 7.2%, 9.4%, and 8.4% in the past year, chronic constipation, urinary symptoms possibly related to constipation, and a total hysterectomy at age 38. The patient is planning a 70th birthday cruise with family in March. Review of Systems:HEENT: Positive for mouth pain and bleeding after tooth extraction.Gastrointes tinal: Positive for constipation.Genitouri nary: Positive for bladder pressure, difficulty urinating.Endocrine: Positive for episodes of low blood sugar (hypoglycemia).Remaini ng relevant ROS negative. MORE Velasco [address] [place] [address], [phone], [facility] 02/10/2025 17:06:06 05/19/2025 text/html ROS as noted in the HPI History of Present IllnessHemalatha Cuello, a patient with a history of diabetes, brain aneurysm, and recent bee sting, presents for follow-up on lab results and multiple ongoing health concerns. Her chief complaints include leg pain, difficulty walking, and swelling in her legs.The patient reports being stung by a bee 4 days ago, resulting in swelling and itching in her hand. She describes her fingers as looking like sausages and expresses concern about developing cellulitis from scratching. She did not need to use her EpiPen but has been taking Benadryl for symptom relief, though she dislikes its sedating effects.Ms. Cuello describes severe leg pain that began about two weeks ago, nearly preventing her from going on a planned cruise. The pain is most intense when lying down at night, affecting her entire legs from thighs to feet. She reports it feeling like her legs were being crushed and states she couldn't sleep for two nights due to the severity. The pain improves somewhat upon waking and standing. She also notes difficulty walking, shortness of breath with exertion, and purple discoloration of her feet. Additionally, she experiences muscle spasms, describing it as feeling like somebody is strumming my muscles like a guitar. The patient reports improvement in her diabetes management, noting that her new glucose sensors seem to be working better than previous ones. She denies experiencing low blood sugar episodes. Ms. Cuello also mentions resolution of a previous double vision issue after getting prism lenses, which she attributes to complications from her past brain aneurysm rupture.Review of SystemsGeneral: Positive for fatigue.Skin: Positive for itching.HEENT: Positive for double vision when lying down.Cardiovascular: Positive for purple feet.Respiratory: Positive for difficulty breathing with exertion (chronic).Musculoskele izabel: Positive for leg pain, muscle cramps, muscle weakness, and muscle spasms.Remaining relevant ROS negative MORE Velasco [address] [place] [address], [phone], [facility] 05/19/2025 19:29:09 06/17/2025 text/html ROS as noted in the HPI History of Present IllnessFrisma Cuello presents with severe muscle pain and [...] Mounjaro (tirzepatide) yesterday as prescribed by her timber robber to manage her blood sugar levels. The [...] muscle contractions.Remaining relevant ROS negative MORE Velasco [address] [place] [address], [id number], [facility] 06/17/2025 17:37:43 08/18/2025 text/html ROS as noted in the [...] units due to medication access issues with [facility] pharmacy, but her blood sugars remain well controlled at the lower dose. She continues to check her blood sugars regularly.She is experiencing significant mobility limitations, describing that she cannot walk far before her legs feel like they're made out of concrete. She has been evaluated by tobacco buyer who recommended compression socks, though she reports [...] a refill of her NovoLog insulin.Review of SystemsCardiovascular: Positive for bilateral leg discoloration and swellingMusculoskeleta l: Positive for leg pain, positive for legs feeling like concrete when walking, positive for muscle spasms at night, positive for sciatica-like pain in left leg when lying down, positive for inability to lie on back due to pain radiating down leg, positive for jaw pain following dental procedure.Neurological : Positive for diabetic neuropathy in feet, improved with gabapentin.Remaining relevant ROS negative MORE Velasco [address] [place] [address], [phone], [place] [facility] 08/18/2025 21:33:58 OBGyn Episode No OBEpisode recorded.
--- OUTSIDE RECORDS SUMMARY | 2025-09-08 22:02 | XMS_ITS | Clinical Summary ---
Author Organization [facility] ity Address [address] [place] [address] Care Team Providers Care Extractor Puller Name Role Phone Katie Turner Primary Care Provider [phone] Allergies Active Allergy Reactions Criticality Noted Date Comments Bee Venom Protein (Honey Bee) Anaphylaxis High 11/03 Honey Bees Codeine Nausea And Vomiting Low 05/18/2015 Hornet Venom Anaphylaxis High 07/31/2022 Venom-Wasp Anaphylaxis High 07/31/2022 Medications lancets lancets USE DIRECTED THREE TIMES PER DAY 0 Active amLODIPine (NORVASC) 2.5 mg tablet TAKE 1 TABLET BY MOUTH EVERY DAY 2 Active pen needle, diabetic 32 gauge x 5/32 needle BD Pen Needle Steffanie 2nd Gen 32G X 4 MM MISC Use once daily as directed 2 Active blood-glucose meter (ACCU-CHEK KATLYN PLUS METER MISC) USE DIRECTED THREE TIMES PER DAY 0 Active blood sugar diagnostic (Accu-Chek Katlyn Plus test strp) test strip USE DIRECTED THREE TIMES PER DAY 1 Active dextroamphetamine sulfate (ZENZEDI) 10 mg tablet Take 1 tablet (10 mg total) by mouth 3 (three) times a day. 2 Active losartan (COZAAR) 25 mg tablet TAKE 1 TABLET BY MOUTH EVERY DAY 2 Active insulin degludec (Tresiba FlexTouch U-200) 200 unit/mL (3 mL) CONCENTRATED injection pen INJECT 50 UNITS UNDER THE SKIN DAILY. STOP XULTOPHY 2 Active pregabalin (LYRICA) 100 mg capsule 1 po tid for chronic pain 2 Active regadenoson (Lexiscan) 0.4 mg/5 mL injection 0 Active rosuvastatin (CRESTOR) 20 mg tablet TAKE 1 TABLET (20 MG TOTAL) BY MOUTH DAILY. TO PREVENT HEART ATTACK AND STROKE 1 Active timolol (TIMOPTIC) 0.5 % ophthalmic solution INSTILL 1 DROP INTO BOTH EYES TWICE A DAY DIRECTED 9 Active tirzepatide (Mounjaro) 5 mg/0.5 mL pen injector Inject 0.5 mL (5 mg total) under the skin every 7 days. Stop Ozempic 2 Active traMADoL (ULTRAM) 50 mg tablet 1-2 po bid prn pain. Do not take within 12 hours of Vicodin 2 Active Active Problems Problem Noted Date Diagnosed Date Positive colorectal cancer screening using Colog uard test 02/14/2022 Pulmonary nodule 05/04/2021 Venous insufficiency of both lower extremities 0 05/04/2021 Stage 3a chronic kidney disease 08/10/2020 De Quervain's syndrome (tenosynovitis) 9 Heart failure with preserved ejection fraction, NYHA class I 05/19/2019 Adenoma of right adrenal gland 03/03/2019 Coronary artery calcification seen on CAT scan 0 02/10/2019 Acute respiratory failure with hypoxia 9 Pneumonia 12/29/2018 Sepsis 12/29/2018 Trochanteric bursitis of right hip 12/29/2018 COPD (chronic obstructive pulmonary disease) Spinal stenosis of lumbar region 10/15/2018 DDD (degenerative disc disease), lumbosacral Osteochondromatosis, 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 Post-op neurosurgery/neurology consultation was negative. Patient treated unsuccessfully with medication for narcolepsy and was still falling asleep at work, while driving, etc. Pharmacist finally recommended dextroamphetamine 10 qid; patient started in 2003 and was finally able to work and drive without falling asleep. She was able to reduce dose to 10 mg tid in 2016. Subsequent attempts to reduce dose further have resulted in severe recurrent hypersomnolence. Patient is adequately treated for OSAS. Immunizations Immunization Administration Dates Next Due Influenza Quadravalent, 0.5m l (Fluzone High-dose) 65yo and older 07/28/2022,07/11/2021 Influenza Quadravalent, MDCK , 0.5ml, preservative free (Flucelvax) 6mo and older 06/13/2019 Influenza Quadrivalent, 0.5m l, preservative free (Fluarix; FluLaval; Fluzone) ages 6mo and older (Afluria) 3yo and older 06/17/2018 Pneumococcal polysaccharide 23 valent (Pneumovax 23) 2yo and older 01/16/2019 Zoster recombinant (Shingrix) 19yo and older Surgical History Surgery Date Site/Laterality Comments APPENDECTOMY PROCEDURE:APPENDECTOMY GALLBLADDER SURGERY PROCEDURE:GALLBLADDER SURGERY HAND SURGERY Right PROCEDURE:HAND SURGERY TOTAL SHOULDER ARTHROPLASTY 08/30/2015 Left PROCEDURE:TOTAL SHOULDER REPLACEMENT TOTAL ABDOMINAL HYSTERECTOMY PROCEDURE:TOTAL ABDOMINAL HYSTERECTOMY CHOLECYSTECTOMY 2010 PROCEDURE:LAPAROSCOPIC CHOLECYSTECTOMY SHOULDER SURGERY Bilateral PROCEDURE:SHOULDER SURGERY CARPAL TUNNEL RELEASE 08/2016 Left PROCEDURE:CARPAL TUNNEL RELEASE;COMMENT:STS Left- Thumb RF BRAIN SURGERY PROCEDURE:BRAIN SURGERY CEREBRAL ANEURYSM REPAIR 2002 PROCEDURE:CEREBRAL ANEURYSM REPAIR BACK SURGERY PROCEDURE:BACK SURGERY COLONOSCOPY 08/01/2022 N/A PROCEDURE:COLONOSCOPY;COMMENT :Procedure: COLONOSCOPY PEDISCOPE; Surgeon: Zander Cannon MD; Location: [facility]; Service: Gastroenterology; Laterality: N/A; BREAST BIOPSY 2010 Left PROCEDURE:BREAST BIOPSY;COMMENT:Benign BREAST BIOPSY 03/19/2024 Right PROCEDURE:BREAST BIOPSY;COMMENT:Stereotactic bx Medical History Medical History Date Comments Hypertension DX:Hypertension Diabetes mellitus without co mplication (CMS/HCC V24, CMS/HCC V28) 11/08/2015 DX:Diabetes mellitus withou t complication (HCC) Smoker DX:Smoker Obstructive sleep apnea DX:Obstr uctive sleep apnea Tachycardia DX:Tachycardia Hx of echocardiogram 04/2015 DX:Hx of ec hocardiogram;COMMENT:nl echo; no pulm htn Obesity 11/08/2015 DX:Obesity H/O cerebral aneurysm repair 2002 DX: H/O cerebral aneurysm repair;COMMENT:s/p clipping at [facility] Narcolepsy DX:Narcolepsy Fractures DX:Fractures;COM MENT:Foot Coronary artery calcificatio n seen on CAT scan 02/10/2019 DX:Coronary artery calcifica tion seen on CAT scan Diastolic dysfunction DX:Diastol ic dysfunction Status post replacement of r ight shoulder joint 07/17/2018 DX:Status post replacement o f right shoulder joint Status post replacement of l eft shoulder joint 07/17/2018 DX:Status post replacement o f left shoulder joint PONV (postoperative nausea a nd vomiting) DX:PONV (postoperative nause a and vomiting) Glaucoma DX:Glaucoma;COMM ENT:mild HL (hearing loss) DX:HL (hearing loss);COMMENT:right ear hearing loss s/p brain surgery De Quervain's syndrome (tenosynovitis) 9 DX:De Quervain's syndrome (tenosynovitis) Family History Medical History Relation Name Comments Arthritis Mother Brain cancer Mother Heart attack Mother GI problems Nephew FAP Aneurysm Sister Breast cancer Sister Cancer Sister Leukemia Migraines Sister Relation Name Status Comments Father Mother Nephew Sister Social History Tobacco Use Types Packs/Day Years Used Date Smoking Tobacco: Former Cigarettes 1 Q uit: 12/18/2018 Smokeless Tobacco: Never Alcohol Use Standard Drinks/Week Comments No 0 (1 standard drink = 0.6 oz pur e alcohol) Comments Unknown Sex and Gender Information Value Date Recorded Sex Assigned at Not on file Legal Sex Female 10:24 PM EST Gender Identity Not on file Sexual Orientation Not on file Last Filed Vital Signs Vital Sign Reading Time Taken Comments Blood Pressure 137/77 06/17/2024 10:14 AM EDT Pulse 88 06/17/2024 10:14 AM EDT Temperature - - Respiratory Rate - - Oxygen Saturation - - Inhaled Oxygen Concentration - - Weight 103 kg (227 lb) 06/17/2024 10:14 AM EDT Height 170.2 cm (5' 7 ) 12/03/2023 9:29 AM EST Body Mass Index 35.55 12/03/2023 9:29 AM EST Plan of Treatment Health Maintenance Due Date Last Done Comments Breast Cancer Screening 1955 DTaP,Tdap,and Td Vaccines (1 - Tdap) 1974 RSV Immunization Adult Patients (1 - Risk 50-74 years 1-dose series) 2005 Diabetes: Annual Foot Exam 06/22/2022 06/22/2021 Diabetes: Annual Retina Eye Exam 06/26/2022 06/26/2021 Social Influencers of Health Screening 09/06/2022 Diabetes: Annual GFR (Glomerular Filtration Rate) 07/14/2023 07/14/2022, 12/30/2018, 12/23/2018, Additional history exists Hypertension/CHF/CAD Annual BMP Blood Test 07/14/2023 07/14/2022, 12/30/2018, 12/23/2018, Additional history exists Falls Risk Assessment 10/23/2023 10/23/2022 Depression Screening 09/30/2024 10/23/2022 Diabetes: Annual Urine Albumin-Creatinine Ratio (uACR) 12/26/2024 Diabetes: Blood Sugar Control Test (HGBA1C) 05/02/2025 11/02/2024, 06/10/2024, 03/03/2024, Additional history exists COVID-19 Vaccine ( season) 2025 09/15/2021, 01/02/2021, 12/05/2020 Influenza Vaccine (#1) 2025 , 07/28/2022, 07/11/2021, Additional history exists Cholesterol Screening (Lipid Panel) 06/10/2029 06/10/2024, 03/03/2024, 08/17/2021 Colorectal Cancer Screening: Colonoscopy 08/02/2032 08/02/2022 Osteoporosis Screening (Bone Density Screening) 01/02/2034 01/03/2024 Hepatitis C Screening Completed 06/17/2018 Pneumococcal Vaccine: 50+ Years Completed 09/08/2023, 01/16/2019 Zoster Vaccines Completed 09/08/2023, 09/15/2021 HIB Vaccines Aged Out No longer eligi ble based on patient's age to complete this topic HPV Vaccines Aged Out No longer eligi ble based on patient's age to complete this topic Hepatitis A Vaccines Aged Out No long er eligible based on patient's age to complete this topic Hepatitis B Vaccines Aged Out No long er eligible based on patient's age to complete this topic IPV Vaccines Aged Out No longer eligi ble based on patient's age to complete this topic MMR Vaccines Aged Out No longer eligi ble based on patient's age to complete this topic Meningococcal ACWY Vaccine Aged Out N o longer eligible based on patient's age to complete this topic Meningococcal B Vaccine Aged Out No l onger eligible based on patient's age to complete this topic RSV Immunization Patients Under 20 months Aged Out No longer eligible based on patient's age to complete this topic Varicella Vaccines Aged Out No longer eligible based on patient's age to complete this topic Procedures Procedure Name Priority Date/Time Associated Diagnosis Comments BONE DENSITY STUDY Routine 01/03/2024 1: 52 PM EDT Encounter for general adult medical examination without abnormal findings DEPRESSION SCREENING Routine 10/23/2022 FALLS RISK ASSESSMENT Routine 10/23/2022 COLONOSCOPY Routine 08/02/2022 ANNUAL BMP BLOOD TEST Routine 07/14/2022 HEMOGLOBIN A1C Routine 07/14/2022 LIPID PANEL Routine 08/17/2021 DIABETES EYE EXAM Routine 06/26/2021 DIABETES FOOT EXAM Routine 06/22/2021 HEPATITIS C SCREENING Routine 06/17/2018 from Last 3 Months or Most Recently Relevant to Health Maintenance Results * BONE DENSITY STUDY (01/03/2024 1:52 PM EDT) Anatomical Region Laterality Modality Bone Densitometr y 09/03/2023 11:1 4 AM EST Narrative 01/06/2024 8:52 AM EDT Bone density study Indication and risk factors: Postmenopausal female. Screening for osteoporosis. No priors. Study acquired on a [employer] App densitometer. Imaging of the lumbar spine and hip was completed. FINDINGS: LUMBAR SPINE Averaged L1 through L4: Bone density: 1.73 g/cm2 Z score: 5.1 T score: 4.6 LEFT HIP Left femoral neck: Bone density: 0.89 g/cm2 Z score: -0.2 T score: -1.1 CONCLUSION: 1. Lumbar spine: Normal bone density. 2. Left hip: Osteopenia. FRAX: 10 year probability of fracture based on femoral neck BMD, when considering patient's personal risk factors: Major osteoporotic fracture: 8% Hip fracture: Less than 1% SESSION: Not applicable World Health Organization Definitions of Osteoporosis: T score at or below -1.0: Normal BMD T score between -1.0 and -2.5: Osteopenia T score at or below -2.5: Osteoporosis DEXA guidelines: Diagnosis : Treatment : Follow-up DEXA Normal BMD : Prevention : 2-3 years Osteopenia : Prevention/therapy :1-2 years Osteoporosis : Therapy : Yearly Report reviewed and signed by : Dr. Rain Cardoza on 01/06/2024 8:52 AM. Workstation Name - [id number] Machine Procedure Note Rain Cardoza MD - 05/18/2024 Bone density study Indication and risk factors: Postmenopausal female. Screening forosteoporosis. No priors. Study acquired on a [employer] densitometer. Imaging of thelumbar spine and hip was completed. FINDINGS: LUMBAR SPINE Averaged L1 through L4: Bone density: 1.73 g/cm2 Z score: 5.1 T score: 4.6 LEFT HIP Left femoral neck: Bone density: 0.89 g/cm2 Z score: -0.2 T score: -1.1 CONCLUSION: 1. Lumbar spine: Normal bone density. 2. Left hip: Osteopenia. FRAX: 10 year probability of fracture based on femoral neck BMD, whenconsidering patient's personal risk factors: Major osteoporotic fracture: 8% Hip fracture: Less than 1% SESSION: Not applicable World Health Organization Definitions of Osteoporosis: T score at or below -1.0: Normal BMD T score between -1.0 and -2.5: Osteopenia T score at or below -2.5: Osteoporosis DEXA guidelines: Diagnosis : Treatment : Follow-up DEXA Normal BMD : Prevention : 2-3 years Osteopenia : Prevention/therapy :1-2 years Osteoporosis : Therapy : Yearly Report reviewed and signed by : Dr. Rain Cardoza on 01/06/2024 8:52 AM.Workstation Name - [id number]-PC Result [facility] Katie AGUERO [employer] DXA PROCEDURES Final Resul t * Falls Risk Assessment (10/23/2022) [facility] [address] Falls Risk Assessment abstracted Result [facility] HEALTH MAINTENANCE Final Result * Depression Screening (10/23/2022) [facility] Depression Screening abstracted Result [facility] HEALTH MAINTENANCE Final Result * Colonoscopy (08/02/2022) [facility] Colonoscopy abstracted Anatomical Region Laterality Modality Other Result [facility] HEALTH MAINTENANCE Final Result * Annual BMP Blood Test (07/14/2022) [facility] Annual BMP Blood Test abstracted Result [facility] HEALTH MAINTENANCE Final Result * (ABNORMAL) Hemoglobin A1c (07/14/2022) [facility] [address] Hemoglobin A1C 8.1(A) <=5.7 % Blood Venous blood specimen / Unknown Result [facility] LAB BLOOD ORDERABLES Farzaneh l Result * (ABNORMAL) Lipid panel (08/17/2021) [facility] [address] Triglycerides 159(A) <=150 mg/dL Cholesterol 89 <=200 mg/dL HDL 33(A) >=50 mg/dL LDL Cholesterol 32 <=100 mg/dL Blood Venous blood specimen / Unknown Result [facility] LAB BLOOD ORDERABLES Farzaneh l Result * Diabetes Eye Exam (06/26/2021) [facility] [address] Diabetes: Annual Retina Eye Exam abstracted Historical Provider HEALTH MAINTENANCE Final Result * Diabetes Foot Exam (06/22/2021) [facility] Diabetes: Annual Foot Exam abstracted Result [facility] Historical Provider HEALTH MAINTENANCE Final Result * Hepatitis C Screening (06/17/2018) [facility] Hepatitis C Screening abstracted Result [facility] Provider HEALTH MAINTENANCE Final Result from Last 3 Months or Most Recently Relevant to Health Maintenance Care Teams Extractor Puller Relationship Specialty Start Date End Date Katie Turner PA PCP - General Physician Catering Barista 05/11/15
--- OUTSIDE RECORDS SUMMARY | 2025-09-08 22:02 | XMS_ITS | Encounter Summary ---
Author Organization [facility] Address [address] [place] [address] Care Team Providers Care Exhibits Coordinator Name Role Phone Katie Turner Primary Care Provider [phone] Harley Ly MD Unavailable [phone] Encounter Details Date Type Department Care Team ([facility] Contact Info) Description 08/18/2021 Scanned Document [facility] Pulmonary [address] [place] [phone] Pulmonary, Scan Social History Tobacco Use Types [...] Upcoming Encounters Date Type Department Care Team ([facility] Contact Info) Description 09/20/2025 9:30 AM EST Appointment [facility] Heart & Vascular [place] [phone] Harley Ly MD [address] [place] [address] documented as of this encounter Goals Goal [...] on filedocumented in this encounter Care Teams Exhibits Coordinator Relationship Specialty Start Date End Date Katie Turner PA PCP - General 04/03/16 Harley Ly MD [address] [place] [address] Primary Earth Science Faculty Member Cardiovascular Disease 07/27/25 documented as of this encounter
--- OUTSIDE RECORDS SUMMARY | 2025-09-08 22:02 | XMS_ITS | Encounter Summary ---
Author Organization [facility] Address [address] [place] [address] Care Team Providers Care File Drawer Finisher Name Role Phone Katie Turner Primary Care Provider [phone] Harley Ly MD Unavailable [phone] Encounter Details Date Type Department Care Team ([facility] Contact Info) Description 11/09/[address] [facility] Pulmonary [place] [address] [place] [phone] Tevin Mcdaniels MD [address] [place] [facility] [address] [place] [address] Social History Tobacco Use Types Packs/Day Years [...] Info) Description 09/20/2025 9:30 AM EST Appointment [facility] Heart & Vascular [place] [address] [phone] Harley Ly MD [address] [place] [address] documented as of this encounter Goals Goal [...] on filedocumented in this encounter Care Teams File Drawer Finisher Relationship Specialty Start Date End Date Katie Turner PA PCP - General 04/03/16 Harley Ly MD [address] [place] [address] Primary Fast Food Shift Supervisor Cardiovascular Disease 07/27/25 documented as of this encounter
--- OUTSIDE RECORDS SUMMARY | 2025-09-08 22:02 | XMS_ITS | Encounter Summary ---
Author Organization [facility] Address [address] [place] [address] Care Team Providers Care Textile Machine Operator Name Role Phone Katie Turner Primary Care Provider [phone] Harley Ly MD Unavailable [phone] Encounter Details Date Type Department Care Team ([facility] Contact Info) Description 08/22/2021 Scanned Document [facility] Pulmonary [address] [place] [phone] Pulmonary, Scan Social History Tobacco Use Types [...] Upcoming Encounters Date Type Department Care Team ([facility] Contact Info) Description 09/20/2025 9:30 AM EST Appointment [facility] Heart & Vascular [place] [phone] Harley Ly MD [address] [place] [address] documented as of this encounter Goals Goal [...] on filedocumented in this encounter Care Teams Textile Machine Operator Relationship Specialty Start Date End Date Katie Turner PA PCP - General 04/03/16 Harley Ly MD [address] [place] [address] Primary Zoo Veterinarian Cardiovascular Disease 07/27/25 documented as of this encounter
--- OUTSIDE RECORDS SUMMARY | 2025-09-08 22:03 | XMS_ITS | Encounter Summary ---
Author Organization [facility] Address [address] [place] [address] Care Team Providers Care Hospital Fellow Name Role Phone Katie Turner Primary Care Provider [phone] Harley Ly MD Unavailable [phone] Encounter Details Date Type Department Care Team (Late Contact Info) Description 10/13/2021 Scanned Document [facility] Pulmonary [address] [place] [phone] Pulmonary, Scan Social History Tobacco Use Types [...] Description 09/20/2025 9:30 AM EST Appointment [facility] Heart & Vascular [place] [address] [phone] Harley Ly MD [address] [place], [place] [id number] documented as of this encounter Goals Goal [...] on filedocumented in this encounter Care Teams Hospital Fellow Relationship Specialty Start Date End Date Katie Turner PA PCP - General 04/03/16 Harley Ly MD [facility] [place] [address] Primary Image Scientist Cardiovascular Disease 07/27/25 documented as of this encounter
--- OUTSIDE RECORDS SUMMARY | 2025-09-08 22:03 | XMS_ITS | Encounter Summary ---
Author Organization [facility] Address [address] [place] [address] Care Team Providers Care Cylinder Inspector Name Role Phone Katie Turner Primary Care Provider [phone] Harley Ly MD Unavailable [phone] Encounter Details Date Type Department Care Team ([facility] Contact Info) Description 08/31/2021 Scanned Document [address] [place] [phone] Social History Tobacco Use Types Packs/Day Years [...] Upcoming Encounters Date Type Department Care Team ([facility] Contact Info) Description 09/20/2025 9:30 AM EST Appointment [facility] Heart & Vascular [place] [address] [place] [phone] Harley Ly MD [address] [place] [address] documented as of this encounter Goals Goal Patient Goal Type Associated Problems Recent Progress Patient-Stated? Author Cut out extra servings Diet No Evelyn Cruz MA PT LTG 1 Physical Therapy No Iasbel Calderon PT Note: [...] on filedocumented in this encounter Care Teams Cylinder Inspector Relationship Specialty Start Date End Date Katie Turner PA PCP - General 04/03/16 Harley Ly MD [address] [place] [address] Primary Revenue Accountant Cardiovascular Disease 07/27/25 documented as of this encounter
== END 2025-09-08 14:26 | disposition home or self-care (01) ==
LOC: HO.HKAE 14:08
PROVIDERS: PCP Physician Assistant Medical; Visit Provider Internal Medicine Hypertension Specialist
DX: I12.9 Hypertensive chronic kidney disease with stage 1 through stage 4 chronic kidney disease, or unspecified chronic kidney disease (principal); E11.22 Type 2 diabetes mellitus with diabetic chronic kidney disease; N18.31 Chronic kidney disease, stage 3a; E27.8 Other specified disorders of adrenal gland; G47.33 Obstructive sleep apnea (adult) (pediatric)
CPT/HCPCS: 99214

== ENCOUNTER → 2025-09-08 14:07 | Outpatient (BNVA) | payer MEDICARE, SELFPAY | PROVIDERS: PCP Physician Assistant Medical; Visit Provider Internal Medicine Hypertension Specialist | DX: E11.22 Type 2 diabetes mellitus with diabetic chronic kidney disease (principal); I12.9 Hypertensive chronic kidney disease with stage 1 through stage 4 chronic kidney disease, or unspecified chronic kidney disease; N18.31 Chronic kidney disease, stage 3a; E27.8 Other specified disorders of adrenal gland; G47.33 Obstructive sleep apnea (adult) (pediatric); M48.00 Spinal stenosis, site unspecified; Z79.4 Long term (current) use of insulin; Z79.899 Other long term (current) drug therapy; E78.5 Hyperlipidemia, unspecified; Z87.442 Personal history of urinary calculi | CPT/HCPCS: 99212 ==